=== PATIENT | male | born 1945 | race Caucasian/White ===

== ENCOUNTER 2019-04-08 13:23 | Outpatient (RCR) | payer MEDICARE, SELFPAY ==
[2019-02-13 12:30] LABS: Prothrombin Time 30.3 Seconds (11.1-14.7)
[2019-03-22 16:13] LABS: Basophils Percent Auto 0.5 % (0.2-1.2); Eosinophils Absolute Auto 0.4 K/mm3 (0-0.3); Eosinophils Percent Auto 4.7 % (0-4.4); Hematocrit 47.4 % (42.0-52.0); Hemoglobin 15.5 g/dL (14.0-18.0); Immature Granulocyte Absolute 0.05 K/mm3 (0.00-0.031); Immature Granulocyte Percent A 0.6 % (0-0.5); Lymphocytes Absolute Auto 1.34 K/mm3 (0.9-3.2); Lymphocytes Percent Auto 16.4 % (18.3-44.2); Mean Corpuscular HGB Conc 32.7 g/dl (32-36); Mean Corpuscular Hemoglobin 27.2 pg (26-34); Mean Corpuscular Volume 83.3 fl (80-100); Mean Platelet Volume 10.8 fl (7.4-10.4); Monocytes Absolute Auto 0.8 K/mm3 (0.1-0.6); Monocytes Percent Auto 10.2 % (2.6-8.5); Neutrophils Absolute Auto 5.5 K/mm3 (1.3-6.7); Neutrophils Percent Auto 67.6 % (45.5-73.1); Platelet Count Result 191 k/mm3 (150-375); Red Blood Count 5.69 M/mm3 (4.6-6.20); Red Cell Distribution Width 15.9 % (11.5-14.5); White Blood Count 8.2 K/mm3 (4.5-10.0)
[2019-03-22 16:25] LABS: Alanine Aminotransferase 54 U/L (4-50); Alkaline Phosphatase 101 U/L (38-126); Aspartate Amino Transferase 41 U/L (17-59); Bilirubin,Total 2.1 mg/dL (0.2-1.3); Blood Urea Nitrogen 22 mg/dL (9-20); Calcium 9.5 mg/dL (8.4-10.2); Carbon Dioxide 29 mmol/L (22-30); Chloride 94 mmol/L (98-107); Estimated Glomerular Filt Rate 59; Glucose 227 mg/dL (75-110); Potassium 4.6 mmol/L (3.4-5.0); Sodium 132 mmol/L (137-145)
[2019-03-22 16:33] LABS: Immunoglobulin A 174 mg/dL (70-400)
[2019-03-24 09:35] LABS: Kappa\\Lambda Light Chains 1.41 (0.26-1.65); Lambda Light Chain 15.9 mg/L (5.7-26.3)
[2019-03-24 13:46] LABS: Beta-2-Microglobulin 2.77 mg/L (<=2.51)
[2019-03-25 00:35] LABS: Albumin 3.8 g/dL (3.8-4.8); Alpha 1 Globulin 0.4 g/dL (0.2-0.3); Alpha 2 Globulin 1.1 g/dL (0.5-0.9); Beta 1 Globulin 0.5 g/dL (0.4-0.6); Gamma Globulin 0.7 g/dL (0.8-1.7); Protein, Total 6.7 g/dL (6.1-8.1)
[2019-03-25 16:43] LABS: INR 2.6; Prothrombin Time 27.4 Seconds (11.1-14.7)
[2019-04-08 14:04] LABS: INR 1.6
== END 2019-04-15 23:59 | disposition home or self-care (01) ==
LOC: ANHLAB 13:23
PROVIDERS: Family Provider Specialist; PCP Emergency Medicine
DX: C90.00 Multiple myeloma not having achieved remission (principal); I25.10 Atherosclerotic heart disease of native coronary artery without angina pectoris; Z86.718 Personal history of other venous thrombosis and embolism; Z86.711 Personal history of pulmonary embolism
CPT/HCPCS: 36415; 80053; 82232; 82784; 83883; 84155; 84165; 85025; 85610

== ENCOUNTER 2019-04-20 15:12 | Outpatient (CLI) | payer MEDICARE, SELFPAY ==
[2019-04-20 15:53] LABS: INR 3.2; Prothrombin Time 32.1 Seconds (11.1-14.7)
== END 2019-04-20 15:13 | disposition home or self-care (01) ==
PROVIDERS: PCP Emergency Medicine
DX: E10.21 Type 1 diabetes mellitus with diabetic nephropathy (principal); M47.819 Spondylosis without myelopathy or radiculopathy, site unspecified
CPT/HCPCS: 36415; 85610

== ENCOUNTER 2019-07-16 15:36 | Outpatient (RCR) | payer MEDICARE, SELFPAY ==
[2019-04-19 10:53] LABS: INR 2.9; Prothrombin Time 29.7 Seconds (11.1-14.7)
[2019-04-19 10:58] LABS: Alanine Aminotransferase 81 U/L (4-50); Albumin Level 4.1 g/dL (3.5-5.1); Alkaline Phosphatase 99 U/L (38-126); Aspartate Amino Transferase 46 U/L (17-59); Bilirubin,Total 1.5 mg/dL (0.2-1.3); Blood Urea Nitrogen 27 mg/dL (9-20); Calcium 9.5 mg/dL (8.4-10.2); Carbon Dioxide 27 mmol/L (22-30); Chloride 101 mmol/L (98-107); Cholesterol 140 mg/dL (0-200); Estimated Glomerular Filt Rate 42; Glucose 150 mg/dL (75-110); HDL Direct 37 mg/dL; Potassium 4.8 mmol/L (3.4-5.0); Sodium 137 mmol/L (137-145); Triglycerides 114 mg/dL (<150)
[2019-04-19 11:08] LABS: LDL Cholesterol Direct 76 mg/dL
[2019-04-19 11:34] LABS: Hemoglobin A1C 8.5 % (<5.7)
[2019-04-29 13:11] LABS: INR 2.8; Prothrombin Time 29.1 Seconds (11.1-14.7)
[2019-06-14 12:45] LABS: Basophils Percent Auto 0.5 % (0.2-1.2); Eosinophils Absolute Auto 0.2 K/mm3 (0-0.3); Eosinophils Percent Auto 2.1 % (0-4.4); Hematocrit 48.9 % (42.0-52.0); Hemoglobin 15.7 g/dL (14.0-18.0); Immature Granulocyte Absolute 0.04 K/mm3 (0.00-0.031); Immature Granulocyte Percent A 0.5 % (0-0.5); Lymphocytes Absolute Auto 1.47 K/mm3 (0.9-3.2); Lymphocytes Percent Auto 18.1 % (18.3-44.2); Mean Corpuscular HGB Conc 32.1 g/dl (32-36); Mean Corpuscular Volume 87.2 fl (80-100); Mean Platelet Volume 10.5 fl (7.4-10.4); Monocytes Absolute Auto 0.8 K/mm3 (0.1-0.6); Monocytes Percent Auto 9.2 % (2.6-8.5); Neutrophils Absolute Auto 5.7 K/mm3 (1.3-6.7); Neutrophils Percent Auto 69.6 % (45.5-73.1); Platelet Count Result 201 k/mm3 (150-375); Red Blood Count 5.61 M/mm3 (4.6-6.20); Red Cell Distribution Width 16.9 % (11.5-14.5); White Blood Count 8.1 K/mm3 (4.5-10.0)
[2019-06-14 13:01] LABS: INR 2.3; Prothrombin Time 24.5 Seconds (11.1-14.7)
[2019-06-14 13:07] LABS: Immunoglobulin A 191 mg/dL (70-400)
[2019-06-14 13:21] LABS: Alanine Aminotransferase 51 U/L (4-50); Albumin Level 3.9 g/dL (3.5-5.1); Alkaline Phosphatase 89 U/L (38-126); Aspartate Amino Transferase 43 U/L (17-59); Bilirubin,Total 1.6 mg/dL (0.2-1.3); Blood Urea Nitrogen 27 mg/dL (9-20); Calcium 9.1 mg/dL (8.4-10.2); Carbon Dioxide 28 mmol/L (22-30); Chloride 102 mmol/L (98-107); Estimated Glomerular Filt Rate 49; Glucose 59 mg/dL (75-110); Phosphorus 3.7 mg/dL (2.5-4.5); Potassium 4.3 mmol/L (3.4-5.0); Sodium 140 mmol/L (137-145)
[2019-06-15 19:45] LABS: Beta-2-Microglobulin 2.57 mg/L (<=2.51)
[2019-06-17 06:36] LABS: Kappa\\Lambda Light Chains 1.57 (0.26-1.65); Lambda Light Chain 13.8 mg/L (5.7-26.3)
[2019-07-16 16:10] LABS: INR 4.5; Prothrombin Time 41.8 Seconds (11.1-14.7)
== END 2019-07-18 23:59 | disposition home or self-care (01) ==
LOC: ANHLAB 15:36
PROVIDERS: PCP Emergency Medicine; Visit Provider Specialist
DX: I25.10 Atherosclerotic heart disease of native coronary artery without angina pectoris (principal); E11.40 Type 2 diabetes mellitus with diabetic neuropathy, unspecified; E78.2 Mixed hyperlipidemia; Z86.711 Personal history of pulmonary embolism; Z86.718 Personal history of other venous thrombosis and embolism
CPT/HCPCS: 36415; 80053; 80061; 80069; 82232; 82784; 83036; 83883; 85025; 85610

== ENCOUNTER 2019-09-06 12:41 | Outpatient (NON) | payer MEDICARE, SELFPAY ==
[2019-09-08 13:08] LABS: Reference Lab Test Result Not Detected
== END 2019-09-06 12:42 ==
DX: M96.1 Postlaminectomy syndrome, not elsewhere classified (principal)
CPT/HCPCS: 36415; 87081; 87641

== ENCOUNTER 2019-09-16 15:03 | Outpatient (RCR) | payer MEDICARE, SELFPAY ==
[2019-08-10 15:36] LABS: Basophils Absolute Auto 0.1 K/mm3 (0.0-0.1); Basophils Percent Auto 0.6 % (0.2-1.2); Eosinophils Absolute Auto 0.3 K/mm3 (0-0.3); Eosinophils Percent Auto 3.5 % (0-4.4); Hematocrit 44.1 % (42.0-52.0); Hemoglobin 14.4 g/dL (14.0-18.0); Immature Granulocyte Absolute 0.05 K/mm3 (0.00-0.031); Immature Granulocyte Percent A 0.6 % (0-0.5); Lymphocytes Absolute Auto 1.52 K/mm3 (0.9-3.2); Mean Corpuscular HGB Conc 32.7 g/dl (32-36); Mean Corpuscular Hemoglobin 28.8 pg (26-34); Mean Corpuscular Volume 88.2 fl (80-100); Monocytes Absolute Auto 0.8 K/mm3 (0.1-0.6); Monocytes Percent Auto 9.8 % (2.6-8.5); Neutrophils Absolute Auto 5.3 K/mm3 (1.3-6.7); Neutrophils Percent Auto 66.5 % (45.5-73.1); Platelet Count Result 173 k/mm3 (150-375); Red Cell Distribution Width 16.5 % (11.5-14.5)
[2019-08-10 15:47] LABS: INR 2.3; Prothrombin Time 24.5 Seconds (11.1-14.7)
[2019-08-10 15:54] LABS: Immunoglobulin A 179 mg/dL (70-400)
[2019-08-12 21:38] LABS: Beta-2-Microglobulin 2.94 mg/L (<=2.51)
[2019-08-16 15:59] LABS: Alanine Aminotransferase 44 U/L (4-50); Albumin Level 4.1 g/dL (3.5-5.1); Alkaline Phosphatase 95 U/L (38-126); Aspartate Amino Transferase 37 U/L (17-59); Bilirubin,Total 1.5 mg/dL (0.2-1.3); Blood Urea Nitrogen 30 mg/dL (9-20); Calcium 9.1 mg/dL (8.4-10.2); Carbon Dioxide 24 mmol/L (22-30); Chloride 107 mmol/L (98-107); Estimated Glomerular Filt Rate 54; Glucose 121 mg/dL (75-110); Potassium 4.8 mmol/L (3.4-5.0); Sodium 138 mmol/L (137-145)
[2019-08-18 22:54] LABS: Kappa\\Lambda Light Chains 1.72 (0.26-1.65); Lambda Light Chain 13.7 mg/L (5.7-26.3)
[2019-08-18 23:03] LABS: Albumin 3.3 g/dL (3.8-4.8); Alpha 1 Globulin 0.3 g/dL (0.2-0.3); Beta 1 Globulin 0.4 g/dL (0.4-0.6); Gamma Globulin 0.6 g/dL (0.8-1.7); Protein, Total 5.9 g/dL (6.1-8.1)
[2019-09-16 16:17] LABS: INR 2.2; Prothrombin Time 23.9 Seconds (11.1-14.7)
[2019-09-16 16:42] LABS: Creatinine Urine 197.9 mg/dL
[2019-09-16 16:47] LABS: MALB Creatinine Ratio 37.7 mg/g (0-30); Microalbumin Urine Random 74.6 mg/L (0-16.7)
== END 2019-11-08 23:59 | disposition home or self-care (01) ==
LOC: ANHLAB 15:03
PROVIDERS: PCP Emergency Medicine; Visit Provider Nurse Practitioner Adult Health
DX: Z51.81 Encounter for therapeutic drug level monitoring (principal); C90.00 Multiple myeloma not having achieved remission; E11.65 Type 2 diabetes mellitus with hyperglycemia; Z79.4 Long term (current) use of insulin; Z79.01 Long term (current) use of anticoagulants
CPT/HCPCS: 36415; 80053; 82043; 82232; 82784; 83883; 84155; 84165; 85025; 85610

== ENCOUNTER 2019-10-08 12:17 | Outpatient (CLI) | payer MEDICARE, SELFPAY ==
--- NOTE | 2019-10-08 | ECG_ITS ---
Measurements Intervals [place] Rate: 61 P: 3 HI: 269 QRS: 31 QRSD: 109 T: -13 QT: 446 QTc: 452 Interpretive Statements SINUS RHYTHM WITH FIRST DEGREE AV BLOCK LOW QRS VOLTAGE IN PRECORDIAL LEADS CANNOT RULE OUT SEPTAL INFARCT, AGE INDETERMINATE CONSIDER INFERIOR INFARCT, AGE INDETERMINATE ABNORMAL ECG Electronically Signed On 10-08-2019 13:05:48 CDT by Andrea Floyd D.O.
[2019-10-08 13:13] LABS: Basophils Absolute Auto 0.1 K/mm3 (0.0-0.1); Eosinophils Absolute Auto 0.3 K/mm3 (0-0.3); Hematocrit 44.6 % (42.0-52.0); Hemoglobin 14.6 g/dL (14.0-18.0); Immature Granulocyte Absolute 0.04 K/mm3 (0.00-0.031); Immature Granulocyte Percent A 0.5 % (0-0.5); Lymphocytes Absolute Auto 1.39 K/mm3 (0.9-3.2); Lymphocytes Percent Auto 16.7 % (18.3-44.2); Mean Corpuscular HGB Conc 32.7 g/dl (32-36); Mean Corpuscular Hemoglobin 29.1 pg (26-34); Mean Corpuscular Volume 88.8 fl (80-100); Mean Platelet Volume 10.4 fl (7.4-10.4); Monocytes Absolute Auto 0.7 K/mm3 (0.1-0.6); Monocytes Percent Auto 8.2 % (2.6-8.5); Neutrophils Absolute Auto 5.8 K/mm3 (1.3-6.7); Neutrophils Percent Auto 69.6 % (45.5-73.1); Platelet Count Result 191 k/mm3 (150-375); Red Blood Count 5.02 M/mm3 (4.6-6.20); Red Cell Distribution Width 14.6 % (11.5-14.5); White Blood Count 8.3 K/mm3 (4.5-10.0)
[2019-10-08 13:15] LABS: Add Urine Microscopic? NO; Appearance Urine Clear (Clear); Bilirubin Urine Negative (Negative); Blood Urine Negative (Negative); Color Urine Yellow (Yellow); Glucose Urine UA Negative (Negative); Ketones Urine Negative (Negative); Leukocyte Esterase Ur Negative LEU/UL (Negative); Nitrate Urine Negative (Negative); Protein Urine Negative (Negative); Specific Grav Ur 1.013 (1.001-1.035); Urobilinogen Urine Negative mg/dL (<2.0)
[2019-10-08 14:21] LABS: Alanine Aminotransferase 60 U/L (4-50); Albumin Level 4.4 g/dL (3.5-5.1); Alkaline Phosphatase 83 U/L (38-126); Anion Gap 8 mmol/L (8-16); Aspartate Amino Transferase 55 U/L (17-59); Bilirubin,Total 1.6 mg/dL (0.2-1.3); Blood Urea Nitrogen 35 mg/dL (9-20); Calcium 9.2 mg/dL (8.4-10.2); Carbon Dioxide 25 mmol/L (22-30); Chloride 103 mmol/L (98-107); Estimated Glomerular Filt Rate 39; Glucose 45 mg/dL (75-110); Potassium 5.3 mmol/L (3.4-5.0); Sodium 136 mmol/L (137-145)
== END 2019-10-08 12:18 | disposition home or self-care (01) ==
LOC: ANHLAB 12:20
PROVIDERS: PCP Family Medicine; Visit Provider Anesthesiology
DX: M96.1 Postlaminectomy syndrome, not elsewhere classified (principal); R94.31 Abnormal electrocardiogram [ECG] [EKG]
CPT/HCPCS: 36415; 80053; 81003; 85025; 93005

== ENCOUNTER 2019-10-12 12:09 | Outpatient (CLI) | payer MEDICARE, SELFPAY ==
[2019-10-12 13:33] LABS: INR 1.3; Prothrombin Time 16.1 Seconds (11.1-14.7)
== END 2019-10-12 12:10 | disposition home or self-care (01) ==
PROVIDERS: PCP Family Medicine; Visit Provider Anesthesiology
DX: M96.1 Postlaminectomy syndrome, not elsewhere classified (principal); Z79.01 Long term (current) use of anticoagulants
CPT/HCPCS: 36415; 85610; 85730

== ENCOUNTER 2019-10-20 12:08 | Outpatient (CLI) | payer MEDICARE, SELFPAY ==
--- NOTE | ~2019-10-20 | US_ITS ---
EXAMINATION: US venous doppler [facility] DATE: 10/20/2019 12:59 INDICATION: Bilateral lower limb pain, swelling and erythema. TECHNIQUE: Grayscale ultrasound images without and with compression and Doppler ultrasound images of the bilateral lower extremity veins were obtained. COMPARISON: 09/26/2016 FINDINGS: Noncompressible deep venous thrombosis in the right popliteal vein, peroneal veins and posterior tibi al veins. The visualized portions of right common femoral vein, profunda (deep) femoral vein, femoral vein, gastrocnemius vein and greater saphenous vein outflow are patent. Noncompressible occlusive deep venous anastomosis in the left posterior tibial veins and peroneal vei ns. The visualized portions of left common femoral vein, profunda femoral vein, femoral vein, poplite al vein, gastrocnemius vein and greater saphenous vein outflow are patent. IMPRESSION: 1. Bilateral [id number] deep venous thrombosis in the right popliteal and bilateral posterior ti bial and peroneal veins. Reviewed, dictated and finalized at location A. IMPRESSION: 1. Bilateral [id number] deep venous thrombosis in the right popliteal and bilateral posterior tibial and peroneal veins.
[2019-10-20 14:41] LABS: INR 1.1; Prothrombin Time 13.7 Seconds (11.1-14.7)
== END 2019-10-20 12:09 | disposition home or self-care (01) ==
PROVIDERS: PCP Family Medicine; Visit Provider Family Medicine
DX: I82.453 Acute embolism and thrombosis of peroneal vein, bilateral (principal); I82.443 Acute embolism and thrombosis of tibial vein, bilateral; I82.431 Acute embolism and thrombosis of right popliteal vein
CPT/HCPCS: 36415; 85610; 93970

== ENCOUNTER 2019-10-25 16:11 | Outpatient (CLI) | payer MEDICARE, SELFPAY ==
[2019-10-25 16:56] LABS: Basophils Absolute Auto 0.1 K/mm3 (0.0-0.1); Basophils Percent Auto 0.7 % (0.2-1.2); Eosinophils Absolute Auto 0.5 K/mm3 (0-0.3); Eosinophils Percent Auto 5.5 % (0-4.4); Hemoglobin 14.5 g/dL (14.0-18.0); Immature Granulocyte Absolute 0.07 K/mm3 (0.00-0.031); Immature Granulocyte Percent A 0.8 % (0-0.5); Lymphocytes Absolute Auto 1.42 K/mm3 (0.9-3.2); Lymphocytes Percent Auto 16.9 % (18.3-44.2); Mean Corpuscular HGB Conc 33.7 g/dl (32-36); Mean Corpuscular Hemoglobin 29.1 pg (26-34); Mean Corpuscular Volume 86.3 fl (80-100); Mean Platelet Volume 10.3 fl (7.4-10.4); Monocytes Absolute Auto 0.9 K/mm3 (0.1-0.6); Monocytes Percent Auto 10.2 % (2.6-8.5); Neutrophils Absolute Auto 5.5 K/mm3 (1.3-6.7); Neutrophils Percent Auto 65.9 % (45.5-73.1); Platelet Count Result 144 k/mm3 (150-375); Red Blood Count 4.98 M/mm3 (4.6-6.20); Red Cell Distribution Width 14.2 % (11.5-14.5); White Blood Count 8.4 K/mm3 (4.5-10.0)
[2019-10-25 17:11] LABS: Alanine Aminotransferase 32 U/L (4-50); Albumin Level 3.7 g/dL (3.5-5.1); Alkaline Phosphatase 84 U/L (38-126); Anion Gap 8 mmol/L (8-16); Aspartate Amino Transferase 29 U/L (17-59); Bilirubin,Total 0.9 mg/dL (0.2-1.3); Blood Urea Nitrogen 30 mg/dL (9-20); Calcium 8.9 mg/dL (8.4-10.2); Carbon Dioxide 26 mmol/L (22-30); Chloride 102 mmol/L (98-107); Estimated Glomerular Filt Rate 42; Glucose 196 mg/dL (75-110); Sodium 136 mmol/L (137-145)
[2019-10-25 17:26] LABS: Immunoglobulin A 202 mg/dL (70-400)
[2019-10-25 17:59] LABS: Potassium 4.7 mmol/L (3.4-5.0)
[2019-10-29 10:46] LABS: Kappa\\Lambda Light Chains 2.01 (0.26-1.65); Lambda Light Chain 16.1 mg/L (5.7-26.3)
[2019-10-31 00:59] LABS: Beta-2-Microglobulin 3.38 mg/L (<=2.51)
== END 2019-10-25 16:12 | disposition home or self-care (01) ==
PROVIDERS: PCP Family Medicine; Visit Provider Internal Medicine Medical Oncology
DX: C90.00 Multiple myeloma not having achieved remission (principal)
CPT/HCPCS: 36415; 80053; 82232; 82784; 83883; 85025; 85610

== ENCOUNTER 2019-10-25 16:23 | Outpatient (CLI) | payer MEDICARE, SELFPAY ==
[2019-10-25 17:07] LABS: INR 2.9; Prothrombin Time 29.6 Seconds (11.1-14.7)
== END 2019-10-25 16:24 | disposition home or self-care (01) ==
PROVIDERS: PCP Family Medicine; Visit Provider Family Medicine
DX: I82.409 Acute embolism and thrombosis of unspecified deep veins of unspecified lower extremity (principal)
CPT/HCPCS: 36415; 85610

== ENCOUNTER 2019-11-19 11:46 | Outpatient (CLI) | payer MEDICARE, SELFPAY ==
[2019-11-19 12:48] LABS: Albumin Level 3.6 g/dL (3.5-5.1); Anion Gap 3 mmol/L (8-16); Blood Urea Nitrogen 25 mg/dL (9-20); Carbon Dioxide 25 mmol/L (22-30); Chloride 105 mmol/L (98-107); Estimated Glomerular Filt Rate 49; Glucose 184 mg/dL (75-110); Potassium 4.8 mmol/L (3.4-5.0); Sodium 133 mmol/L (137-145)
[2019-11-19 13:17] LABS: Creatinine Urine 141.6 mg/dL; Total Protein Urine Random 16 mg/dL
== END 2019-11-19 11:47 | disposition home or self-care (01) ==
LOC: ANHLAB 11:50
PROVIDERS: PCP Family Medicine; Visit Provider Internal Medicine Nephrology
DX: N18.3 Chronic kidney disease, stage 3 (moderate) (principal)
CPT/HCPCS: 36415; 80069; 82570; 84156

== ENCOUNTER 2019-12-03 10:46 | Outpatient (CLI) | payer MEDICARE, SELFPAY ==
--- NOTE | ~2019-12-03 | US_ITS ---
EXAMINATION: US venous doppler [facility] DATE: 12/03/2019 12:05 INDICATION: Left lower limb pain. TECHNIQUE: Grayscale ultrasound images without and with compression and Doppler ultrasound images of the bilateral lower extremity veins were obtained. COMPARISON: Ultrasound 10/20/2019 FINDINGS: The visualized portions of right common femoral vein, profunda (deep) femoral vein, femoral vein, and greater saphenous vein outflow are patent. There is thrombus in right popliteal and gastrocnemius ve ins. The calf veins are not well evaluated. The visualized portions of left common femoral vein, profunda femoral vein, femoral vein, popliteal v ein, and greater saphenous vein outflow are patent. The calf veins are not well evaluated. IMPRESSION: 1. Deep vein thrombosis involving right popliteal and gastrocnemius veins. Reviewed, dictated and finalized at location B.
[2019-12-03 11:54] LABS: INR 1.4; Prothrombin Time 16.5 Seconds (11.1-14.7)
== END 2019-12-03 10:47 | disposition home or self-care (01) ==
PROVIDERS: PCP Family Medicine; Visit Provider Internal Medicine Medical Oncology
DX: I82.4Z2 Acute embolism and thrombosis of unspecified deep veins of left distal lower extremity (principal); Z86.718 Personal history of other venous thrombosis and embolism
CPT/HCPCS: 36415; 85610; 93970

== ENCOUNTER 2019-12-06 14:37 | Outpatient (RCR) | payer MEDICARE, SELFPAY ==
[2019-11-29 16:06] LABS: INR 1.1; Prothrombin Time 13.5 Seconds (11.1-14.7)
[2019-12-06 15:06] LABS: INR 1.5
== END 2020-02-27 23:59 | disposition home or self-care (01) ==
LOC: ANHLAB 14:37
PROVIDERS: PCP Family Medicine; Visit Provider Internal Medicine Medical Oncology
DX: Z51.81 Encounter for therapeutic drug level monitoring (principal); Z79.01 Long term (current) use of anticoagulants
CPT/HCPCS: 36415; 85610

== ENCOUNTER 2019-12-27 16:55 | Outpatient (CLI) | payer MEDICARE, SELFPAY ==
[2019-12-27 17:35] LABS: Basophils Absolute Auto 0.1 K/mm3 (0.0-0.1); Basophils Percent Auto 0.6 % (0.2-1.2); Eosinophils Absolute Auto 0.3 K/mm3 (0-0.3); Eosinophils Percent Auto 3.5 % (0-4.4); Hematocrit 46.7 % (42.0-52.0); Hemoglobin 15.4 g/dL (14.0-18.0); Immature Granulocyte Absolute 0.04 K/mm3 (0.00-0.031); Immature Granulocyte Percent A 0.5 % (0-0.5); Lymphocytes Absolute Auto 1.64 K/mm3 (0.9-3.2); Lymphocytes Percent Auto 20.6 % (18.3-44.2); Mean Corpuscular Hemoglobin 29.2 pg (26-34); Mean Corpuscular Volume 88.6 fl (80-100); Mean Platelet Volume 10.1 fl (7.4-10.4); Monocytes Absolute Auto 0.7 K/mm3 (0.1-0.6); Monocytes Percent Auto 8.8 % (2.6-8.5); Neutrophils Absolute Auto 5.3 K/mm3 (1.3-6.7); Platelet Count Result 190 k/mm3 (150-375); Red Blood Count 5.27 M/mm3 (4.6-6.20); Red Cell Distribution Width 14.5 % (11.5-14.5)
[2019-12-27 18:05] LABS: Alanine Aminotransferase 41 U/L (4-50); Albumin Level 4.3 g/dL (3.5-5.1); Alkaline Phosphatase 76 U/L (38-126); Anion Gap 9 mmol/L (8-16); Aspartate Amino Transferase 37 U/L (17-59); Blood Urea Nitrogen 30 mg/dL (9-20); Calcium 9.6 mg/dL (8.4-10.2); Carbon Dioxide 27 mmol/L (22-30); Chloride 104 mmol/L (98-107); Estimated Glomerular Filt Rate 29; Glucose 62 mg/dL (75-110); Potassium 4.7 mmol/L (3.4-5.0); Sodium 140 mmol/L (137-145)
[2019-12-27 18:13] LABS: Immunoglobulin A 215 mg/dL (70-400)
[2019-12-29 21:43] LABS: Kappa\\Lambda Light Chains 1.53 (0.26-1.65); Lambda Light Chain 18.1 mg/L (5.7-26.3)
[2019-12-30 21:41] LABS: Albumin 3.8 g/dL (3.8-4.8); Alpha 1 Globulin 0.4 g/dL (0.2-0.3); Alpha 2 Globulin 1.1 g/dL (0.5-0.9); Beta 1 Globulin 0.5 g/dL (0.4-0.6); Gamma Globulin 0.7 g/dL (0.8-1.7); Protein, Total 6.8 g/dL (6.1-8.1)
[2019-12-31 12:53] LABS: Beta-2-Microglobulin 3.17 mg/L (<=2.51)
== END 2019-12-27 16:56 | disposition home or self-care (01) ==
LOC: ANHLAB 17:00
PROVIDERS: PCP Family Medicine; Visit Provider Internal Medicine Medical Oncology
DX: C90.00 Multiple myeloma not having achieved remission (principal)
CPT/HCPCS: 36415; 80053; 82232; 82784; 83883; 84155; 84165; 85025

== ENCOUNTER → 2020-01-18 13:13 | Outpatient (CLI) | payer MEDICARE, SELFPAY ==
--- NOTE | ~2020-01-18 | US_ITS ---
EXAMINATION: US renal BI EXAM DATE: 01/18/2020 13:44 INDICATION: Acute renal failure TECHNIQUE: Multiple grayscale and Doppler images of the kidneys were obtained (by a technologist who performed the scan) and subsequently reviewed. Comparison is made to prior examination from 09/23/1969 . FINDINGS: There is mild bilateral renal cortical thinning. Right kidney: There is normal contour and echogenicity. It measures 9.8 x 5.4 x 5.1 centimeters. The re is a 1.2 cm cyst. There is no hydronephrosis. Left kidney: There is normal contour and echogenicity. It measures 11.4 x 5.3 x 5.3 centimeters. Th ere are no focal renal lesions identified. There is no hydronephrosis. Bladder unremarkable. IMPRESSION: 1. Renal cortical thinning, mild atrophy bilaterally. 2. No hydronephrosis. Reviewed, dictated and finalized at location B. PUMPER
== END ==
PROVIDERS: PCP Family Medicine; Visit Provider Internal Medicine Medical Oncology
DX: N17.9 Acute kidney failure, unspecified (principal)
CPT/HCPCS: 76775

== ENCOUNTER 2020-02-23 16:59 | Outpatient (CLI) | payer MEDICARE, SELFPAY ==
[2020-02-23 17:39] LABS: Basophils Absolute Auto 0.1 K/mm3 (0.0-0.1); Basophils Percent Auto 0.7 % (0.2-1.2); Eosinophils Absolute Auto 0.3 K/mm3 (0-0.3); Eosinophils Percent Auto 3.7 % (0-4.4); Hematocrit 49.1 % (42.0-52.0); Immature Granulocyte Absolute 0.03 K/mm3 (0.00-0.031); Immature Granulocyte Percent A 0.4 % (0-0.5); Lymphocytes Absolute Auto 1.86 K/mm3 (0.9-3.2); Lymphocytes Percent Auto 22.4 % (18.3-44.2); Mean Corpuscular HGB Conc 32.6 g/dl (32-36); Mean Corpuscular Hemoglobin 28.8 pg (26-34); Mean Corpuscular Volume 88.5 fl (80-100); Monocytes Absolute Auto 0.8 K/mm3 (0.1-0.6); Monocytes Percent Auto 9.9 % (2.6-8.5); Neutrophils Absolute Auto 5.2 K/mm3 (1.3-6.7); Neutrophils Percent Auto 62.9 % (45.5-73.1); Platelet Count Result 191 k/mm3 (150-375); Red Blood Count 5.55 M/mm3 (4.6-6.20); Red Cell Distribution Width 14.6 % (11.5-14.5); White Blood Count 8.3 K/mm3 (4.5-10.0)
[2020-02-23 17:51] LABS: Alanine Aminotransferase 41 U/L (4-50); Alkaline Phosphatase 87 U/L (38-126); Anion Gap 7 mmol/L (8-16); Aspartate Amino Transferase 34 U/L (17-59); Bilirubin,Total 1.5 mg/dL (0.2-1.3); Blood Urea Nitrogen 29 mg/dL (9-20); Calcium 9.4 mg/dL (8.4-10.2); Carbon Dioxide 28 mmol/L (22-30); Chloride 102 mmol/L (98-107); Estimated Glomerular Filt Rate 33; Glucose 98 mg/dL (75-110); Sodium 137 mmol/L (137-145)
[2020-02-23 17:58] LABS: Immunoglobulin A 222 mg/dL (70-400)
[2020-02-28 14:28] LABS: Kappa\\Lambda Light Chains 1.96 (0.26-1.65); Lambda Light Chain 16.4 mg/L (5.7-26.3)
[2020-02-29 11:33] LABS: Beta-2-Microglobulin 3.98 mg/L (<=2.51)
== END 2020-02-23 17:00 | disposition home or self-care (01) ==
LOC: ANHLAB 17:04
PROVIDERS: PCP Family Medicine; Visit Provider Internal Medicine Medical Oncology
DX: C90.00 Multiple myeloma not having achieved remission (principal)
CPT/HCPCS: 36415; 80053; 82232; 82784; 83883; 85025

== ENCOUNTER → 2020-03-30 15:34 | Outpatient (CLI) | payer MEDICARE, SELFPAY ==
--- NOTE | ~2020-03-30 | CT_ITS ---
EXAMINATION: CT pelvis wo con DATE: 03/30/2020 15:53 INDICATION: Spondylolisthesis, sacral and sacrococcygeal region. TECHNIQUE: Computed tomography (CT) of the pelvis was performed without intravenous contrast. Automat ed exposure control and iterative reconstruction technique were employed. The dose-length product was 627.80 mGy-cm. COMPARISON: CT abdomen 02/06/2019 FINDINGS: There is diffuse bladder wall thickening, likely secondary to chronic outlet obstruction fr om the mildly enlarged prostate. There are no dilated loops of bowel. There is an anastomosis in the sigmoid colon. The appendix is normal. There are no pathologically enlarged lymph nodes. There is no free intraperitoneal fluid. There is prominent fat in the inguinal canals that may be hernias. There are changes of posterior fusion procedure from L4 to S1 with pedicle screws. There is interbody fusio n at L5-S1. There is severe lower lumbar spondylosis. There is mild osteoarthritis of the hips. There is moderate osteoarthritis of the sacroiliac joints. IMPRESSION: 1. Severe lower lumbar spondylosis. 2. Posterior fusion procedure from L4 to S1. Reviewed, dictated and finalized at location A. ET REPORT CLERK
== END ==
PROVIDERS: PCP Family Medicine; Visit Provider Anesthesiology
DX: M43.18 Spondylolisthesis, sacral and sacrococcygeal region (principal); M47.816 Spondylosis without myelopathy or radiculopathy, lumbar region; Z98.1 Arthrodesis status
CPT/HCPCS: 72192

== ENCOUNTER 2020-04-26 13:13 | Outpatient (CLI) | payer MEDICARE, SELFPAY ==
[2020-04-26 13:41] LABS: Basophils Percent Auto 0.5 % (0.2-1.2); Eosinophils Absolute Auto 0.3 K/mm3 (0-0.3); Hematocrit 47.7 % (42.0-52.0); Hemoglobin 15.4 g/dL (14.0-18.0); Immature Granulocyte Absolute 0.04 K/mm3 (0.00-0.031); Immature Granulocyte Percent A 0.5 % (0-0.5); Lymphocytes Absolute Auto 1.68 K/mm3 (0.9-3.2); Lymphocytes Percent Auto 19.7 % (18.3-44.2); Mean Corpuscular HGB Conc 32.3 g/dl (32-36); Mean Corpuscular Hemoglobin 27.4 pg (26-34); Mean Corpuscular Volume 84.9 fl (80-100); Mean Platelet Volume 10.2 fl (7.4-10.4); Monocytes Absolute Auto 0.9 K/mm3 (0.1-0.6); Neutrophils Absolute Auto 5.6 K/mm3 (1.3-6.7); Neutrophils Percent Auto 65.3 % (45.5-73.1); Platelet Count Result 186 k/mm3 (150-375); Red Blood Count 5.62 M/mm3 (4.6-6.20); Red Cell Distribution Width 15.6 % (11.5-14.5); White Blood Count 8.5 K/mm3 (4.5-10.0)
[2020-04-26 13:54] LABS: Alanine Aminotransferase 33 U/L (4-50); Albumin Level 3.9 g/dL (3.5-5.1); Alkaline Phosphatase 92 U/L (38-126); Anion Gap 5 mmol/L (8-16); Aspartate Amino Transferase 32 U/L (17-59); Bilirubin,Total 1.7 mg/dL (0.2-1.3); Blood Urea Nitrogen 24 mg/dL (9-20); Calcium 9.4 mg/dL (8.4-10.2); Carbon Dioxide 28 mmol/L (22-30); Chloride 105 mmol/L (98-107); Estimated Glomerular Filt Rate 39; Glucose 125 mg/dL (75-110); Potassium 4.6 mmol/L (3.4-5.0); Sodium 138 mmol/L (137-145)
[2020-04-26 14:01] LABS: Immunoglobulin A 216 mg/dL (70-400)
[2020-04-28 01:09] LABS: Kappa\\Lambda Light Chains 1.67 (0.26-1.65); Lambda Light Chain 17.9 mg/L (5.7-26.3)
[2020-04-30 22:02] LABS: Albumin 3.4 g/dL (3.8-4.8); Alpha 1 Globulin 0.4 g/dL (0.2-0.3); Alpha 2 Globulin 1.1 g/dL (0.5-0.9); Beta 1 Globulin 0.5 g/dL (0.4-0.6); Gamma Globulin 0.7 g/dL (0.8-1.7); Protein, Total 6.4 g/dL (6.1-8.1)
== END 2020-04-26 13:14 | disposition home or self-care (01) ==
PROVIDERS: PCP Family Medicine; Visit Provider Internal Medicine Medical Oncology
DX: C90.00 Multiple myeloma not having achieved remission (principal)
CPT/HCPCS: 36415; 80053; 82232; 82784; 83883; 84155; 84165; 85025

== ENCOUNTER 2020-05-05 13:37 | Outpatient (CLI) | payer MEDICARE, SELFPAY ==
[2020-05-05 15:15] LABS: Creatinine Urine 171.8 mg/dL
[2020-05-05 15:22] LABS: Microalbumin Urine Random 15.5 mg/L (0-16.7)
== END 2020-05-05 13:38 | disposition home or self-care (01) ==
PROVIDERS: PCP Family Medicine; Visit Provider Internal Medicine Endocrinology, Diabetes & Metabolism
DX: E11.65 Type 2 diabetes mellitus with hyperglycemia (principal); Z79.4 Long term (current) use of insulin
CPT/HCPCS: 82043

== ENCOUNTER 2020-05-12 13:38 | Outpatient (CLI) | payer MEDICARE, SELFPAY ==
--- NOTE | ~2020-05-12 | US_ITS ---
EXAMINATION: US venous doppler [facility] DATE: 05/12/2020 14:15 INDICATION: Left lower limb deep vein thrombosis. TECHNIQUE: Grayscale ultrasound images without and with compression and Doppler ultrasound images of the left lower extremity veins were obtained. COMPARISON: Ultrasound 12/03/2019 FINDINGS: The visualized portions of left common femoral vein, profunda (deep) femoral vein, femoral vein, popl iteal vein, posterior tibial veins, and greater saphenous vein outflow are patent. The peroneal veins are not well visualized. IMPRESSION: 1. No deep venous thrombosis. Reviewed, dictated and finalized at location A.
== END 2020-05-12 13:39 | disposition home or self-care (01) ==
PROVIDERS: PCP Family Medicine; Visit Provider Internal Medicine Medical Oncology
DX: I82.5Z2 Chronic embolism and thrombosis of unspecified deep veins of left distal lower extremity (principal)
CPT/HCPCS: 93971

== ENCOUNTER 2020-05-24 16:55 | Outpatient (CLI) | payer MEDICARE, SELFPAY ==
[2020-05-24 17:52] LABS: Add Urine Microscopic? YES; Appearance Urine Clear (Clear); Bilirubin Urine Negative (Negative); Blood Urine Negative (Negative); Color Urine Yellow (Yellow); Glucose Urine UA 3+ mg/dL (Negative); Ketones Urine Negative (Negative); Leukocyte Esterase Ur Negative LEU/UL (NEGATIVE); Mucus Urine Rare /lpf; Nitrate Urine Negative (Negative); Protein Urine Negative (Negative); RBC Urine 0-2 /hpf (0-2); Specific Grav Ur 1.022 (1.001-1.035); Squamous Epithelial Cell Urine Rare /hpf (Few); Urobilinogen Urine Negative mg/dL (<2.0); WBC Urine 0-3 /hpf (0-3)
[2020-05-24 17:58] LABS: Albumin Level 4.3 g/dL (3.5-5.1); Anion Gap 10 mmol/L (8-16); Blood Urea Nitrogen 44 mg/dL (9-20); Calcium 9.7 mg/dL (8.4-10.2); Carbon Dioxide 24 mmol/L (22-30); Chloride 106 mmol/L (98-107); Estimated Glomerular Filt Rate 31; Glucose 98 mg/dL (75-110); Phosphorus 4.8 mg/dL (2.5-4.5); Sodium 140 mmol/L (137-145)
[2020-05-24 18:01] LABS: Alanine Aminotransferase 32 U/L (4-50); Albumin Level 4.2 g/dL (3.5-5.1); Alkaline Phosphatase 96 U/L (38-126); Anion Gap 8 mmol/L (8-16); Aspartate Amino Transferase 34 U/L (17-59); Bilirubin,Total 1.4 mg/dL (0.2-1.3); Blood Urea Nitrogen 43 mg/dL (9-20); Calcium 9.4 mg/dL (8.4-10.2); Carbon Dioxide 24 mmol/L (22-30); Chloride 106 mmol/L (98-107); Estimated Glomerular Filt Rate 33; Glucose 95 mg/dL (75-110); Sodium 138 mmol/L (137-145)
[2020-05-24 18:09] LABS: Basophils Percent Auto 0.3 % (0.2-1.2); Eosinophils Absolute Auto 0.5 K/mm3 (0-0.3); Eosinophils Percent Auto 5.5 % (0-4.4); Hematocrit 49.7 % (42.0-52.0); Hemoglobin 16.1 g/dL (14.0-18.0); Immature Granulocyte Absolute 0.07 K/mm3 (0.00-0.031); Immature Granulocyte Percent A 0.7 % (0-0.5); Lymphocytes Absolute Auto 1.87 K/mm3 (0.9-3.2); Lymphocytes Percent Auto 19.6 % (18.3-44.2); Mean Corpuscular HGB Conc 32.4 g/dl (32-36); Mean Corpuscular Hemoglobin 27.4 pg (26-34); Mean Corpuscular Volume 84.7 fl (80-100); Mean Platelet Volume 10.7 fl (7.4-10.4); Monocytes Absolute Auto 0.9 K/mm3 (0.1-0.6); Monocytes Percent Auto 9.3 % (2.6-8.5); Neutrophils Absolute Auto 6.2 K/mm3 (1.3-6.7); Neutrophils Percent Auto 64.6 % (45.5-73.1); Platelet Count Result 217 k/mm3 (150-375); Red Blood Count 5.87 M/mm3 (4.6-6.20); Red Cell Distribution Width 17.2 % (11.5-14.5); White Blood Count 9.5 K/mm3 (4.5-10.0)
[2020-05-24 18:10] LABS: Hematocrit 50.8 % (42.0-52.0); Hemoglobin 16.5 g/dL (14.0-18.0); Mean Corpuscular HGB Conc 32.5 g/dl (32-36); Mean Corpuscular Hemoglobin 27.9 pg (26-34); Mean Corpuscular Volume 85.8 fl (80-100); Mean Platelet Volume 10.6 fl (7.4-10.4); Platelet Count Result 207 k/mm3 (150-375); Red Blood Count 5.92 M/mm3 (4.6-6.20); Red Cell Distribution Width 17.8 % (11.5-14.5); White Blood Count 9.3 K/mm3 (4.5-10.0)
[2020-05-24 18:39] LABS: Parathyroid Intact 63.9 pg/mL (7.5-53.5)
[2020-05-24 18:45] LABS: Vitamin D 25 Hydroxy 72.5 ng/mL
[2020-05-24 20:09] LABS: Creatinine Urine 145.7 mg/dL; Total Protein Urine Random 9 mg/dL; Ur Ttl Prot Creatinine Ratio 0.06 mg/mg (0-0.20)
== END 2020-05-24 16:56 | disposition home or self-care (01) ==
LOC: ANHLAB 16:57
PROVIDERS: Internal Medicine Nephrology; PCP Family Medicine; Visit Provider Anesthesiology
DX: M43.18 Spondylolisthesis, sacral and sacrococcygeal region (principal)
CPT/HCPCS: 36415; 80053; 80069; 81001; 82306; 82570; 83970; 84156; 85025; 85027

== ENCOUNTER 2020-06-22 10:39 | Outpatient (CLI) | payer MEDICARE, SELFPAY ==
[2020-06-22 11:46] LABS: Basophils Percent Auto 0.5 % (0.2-1.2); Eosinophils Absolute Auto 0.3 K/mm3 (0-0.3); Eosinophils Percent Auto 3.3 % (0-4.4); Hematocrit 45.1 % (42.0-52.0); Hemoglobin 14.4 g/dL (14.0-18.0); Immature Granulocyte Absolute 0.03 K/mm3 (0.00-0.031); Immature Granulocyte Percent A 0.4 % (0-0.5); Lymphocytes Absolute Auto 1.46 K/mm3 (0.9-3.2); Lymphocytes Percent Auto 18.3 % (18.3-44.2); Mean Corpuscular HGB Conc 31.9 g/dl (32-36); Mean Corpuscular Hemoglobin 27.9 pg (26-34); Mean Corpuscular Volume 87.2 fl (80-100); Mean Platelet Volume 10.5 fl (7.4-10.4); Monocytes Absolute Auto 0.8 K/mm3 (0.1-0.6); Monocytes Percent Auto 10.1 % (2.6-8.5); Neutrophils Absolute Auto 5.4 K/mm3 (1.3-6.7); Neutrophils Percent Auto 67.4 % (45.5-73.1); Platelet Count Result 186 k/mm3 (150-375); Red Blood Count 5.17 M/mm3 (4.6-6.20)
[2020-06-22 11:59] LABS: Potassium 4.9 mmol/L (3.4-5.0)
[2020-06-22 12:02] LABS: Alanine Aminotransferase 18 U/L (4-50); Albumin Level 4.1 g/dL (3.5-5.1); Alkaline Phosphatase 84 U/L (38-126); Anion Gap 7 mmol/L (8-16); Aspartate Amino Transferase 24 U/L (17-59); Bilirubin,Total 1.8 mg/dL (0.2-1.3); Blood Urea Nitrogen 31 mg/dL (9-20); Calcium 9.2 mg/dL (8.4-10.2); Carbon Dioxide 27 mmol/L (22-30); Chloride 105 mmol/L (98-107); Estimated Glomerular Filt Rate 35; Glucose 68 mg/dL (75-110); Phosphorus 3.9 mg/dL (2.5-4.5); Sodium 139 mmol/L (137-145)
[2020-06-22 12:11] LABS: Immunoglobulin A 244 mg/dL (70-400)
[2020-06-25 21:54] LABS: Albumin 3.6 g/dL (3.8-4.8); Alpha 1 Globulin 0.4 g/dL (0.2-0.3); Beta 1 Globulin 0.5 g/dL (0.4-0.6); Gamma Globulin 0.6 g/dL (0.8-1.7); Protein, Total 6.4 g/dL (6.1-8.1)
[2020-06-25 22:41] LABS: Kappa\\Lambda Light Chains 1.79 (0.26-1.65); Lambda Light Chain 18.3 mg/L (5.7-26.3)
[2020-06-26 14:38] LABS: Beta-2-Microglobulin 3.52 mg/L (<=2.51)
== END 2020-06-22 10:40 | disposition home or self-care (01) ==
LOC: ANHLAB 10:45
PROVIDERS: PCP Family Medicine; Visit Provider Internal Medicine Nephrology
DX: N18.32 Chronic kidney disease, stage 3b (principal); C90.00 Multiple myeloma not having achieved remission
CPT/HCPCS: 36415; 80053; 80069; 82232; 82784; 83883; 84155; 84165; 85025

== ENCOUNTER 2020-09-08 13:28 | Outpatient (CLI) | payer MEDICARE, SELFPAY ==
--- NOTE | ~2020-09-08 | XR_ITS ---
CORRECTED REPORT Ordering provider changed to Gisell Samuels MD [id number] XR thoracic spine 2V DATE: 09/08/2020 14:19 INDICATION: Back pain. Postlaminectomy syndrome. TECHNIQUE: AP and lateral views COMPARISON: None FINDINGS: There is mild dextro scoliosis of the thoracic spine. There is diffuse osteopenia. There is mild to moderate degenerative spurring of the thoracic spine. No fracture or dislocation or bone destruction. The thoracic pedicles are intact. Thoracic spinal leads overlie the mid to lower thoracic spinal canal. The generator device overlies the lower back. IMPRESSION: Mild dextroscoliosis Osteopenia Mild to moderate degenerative spurring Reviewed, dictated and finalized at location B. MTDD
--- NOTE | ~2020-09-08 | XR_ITS ---
CORRECTED REPORT Ordering provider changed to Gisell Samuels MD [id number] XR lumbar spine min 4V DATE: 09/08/2020 14:19 INDICATION: Back pain. Post laminectomy syndrome. TECHNIQUE: Flexion and extension and neutral lateral views. Coned lateral lumbosacral and AP views. COMPARISON: 10/28/2018 lumbar spine FINDINGS: Interval placement of a generator device at the left back with leads extending into the region of the lumbar spinal canal at the L2 level and extending into the thoracic spinal canal. Levoscoliosis. Diffuse osteopenia. Bilateral pedicle screws and connecting rods are again noted at L3, L4 and L5, without interval displacement or fracture since 10/28/2018. Since 10/2018 there is severe progression of degenerative disc disease at L3-4, with very prominent eburnation and degenerative spurring. Severe degenerative disc disease is again noted at L2-3, moderately severe degenerative disc disease at L4-5 and L5-S1. No interval fracture or bone destruction of the lumbar spine. No spondylolisthesis. No instability on flexion or extension is evident. The sacroiliac joints are intact. IVC filter overlies the inferior vena cava at the L3 level. Extensive calcification of the abdominal aorta and iliac arteries. Status post cholecystectomy. IMPRESSION: Interval placement of left-sided generator and thoracic spinal leads since 10/28/2018 Pedicle screws are again noted bilaterally at L4, L5 and S1 Multilevel degenerative disc disease including prominent progression of severe degenerative disc disease at L3-4 Reviewed, dictated and finalized at location B. MTDD IMPRESSION: Interval placement of left-sided generator and thoracic spinal lead s since 10/28/2018 Pedicle screws are again noted bilaterally at L4, L5 and S1 Multilevel degenerative disc disease including prominent progression of severe degenerative disc disease at L3-4
[2020-09-08 14:06] LABS: Basophils Percent Auto 0.5 % (0.2-1.2); Eosinophils Absolute Auto 0.3 K/mm3 (0-0.3); Eosinophils Percent Auto 4.2 % (0-4.4); Hematocrit 47.8 % (42.0-52.0); Hemoglobin 15.4 g/dL (14.0-18.0); Immature Granulocyte Absolute 0.04 K/mm3 (0.00-0.031); Immature Granulocyte Percent A 0.5 % (0-0.5); Lymphocytes Absolute Auto 1.48 K/mm3 (0.9-3.2); Lymphocytes Percent Auto 19.8 % (18.3-44.2); Mean Corpuscular HGB Conc 32.2 g/dl (32-36); Mean Corpuscular Volume 86.9 fl (80-100); Mean Platelet Volume 10.1 fl (7.4-10.4); Monocytes Absolute Auto 0.9 K/mm3 (0.1-0.6); Monocytes Percent Auto 11.4 % (2.6-8.5); Neutrophils Absolute Auto 4.7 K/mm3 (1.3-6.7); Neutrophils Percent Auto 63.6 % (45.5-73.1); Platelet Count Result 176 k/mm3 (150-375); Red Cell Distribution Width 15.7 % (11.5-14.5); White Blood Count 7.5 K/mm3 (4.5-10.0)
[2020-09-08 14:14] LABS: Hemoglobin A1C 7.1 % (<5.7)
[2020-09-08 14:16] LABS: Alanine Aminotransferase 34 U/L (4-50); Albumin Level 4.2 g/dL (3.5-5.1); Alkaline Phosphatase 103 U/L (38-126); Anion Gap 11 mmol/L (8-16); Aspartate Amino Transferase 31 U/L (17-59); Bilirubin,Total 1.5 mg/dL (0.2-1.3); Blood Urea Nitrogen 42 mg/dL (9-20); Calcium 9.6 mg/dL (8.4-10.2); Carbon Dioxide 23 mmol/L (22-30); Chloride 102 mmol/L (98-107); Cholesterol 144 mg/dL (0-200); Estimated Glomerular Filt Rate 31; Glucose 105 mg/dL (65-110); HDL Direct 43 mg/dL; Potassium 4.9 mmol/L (3.4-5.0); Sodium 136 mmol/L (137-145); Triglycerides 94 mg/dL (<150); Uric Acid 7.4 mg/dL (3.5-8.5)
[2020-09-08 14:28] LABS: LDL Cholesterol Direct 65 mg/dL
[2020-09-08 14:49] LABS: Vitamin D 25 Hydroxy 79.1 ng/mL
[2020-09-08 14:57] LABS: Albumin Level 4.3 g/dL (3.5-5.1)
[2020-09-08 16:59] LABS: Immunoglobulin G 714 mg/dL (700-1600)
[2020-09-10 22:46] LABS: Albumin 3.6 g/dL (3.8-4.8); Alpha 1 Globulin 0.3 g/dL (0.2-0.3); Beta 1 Globulin 0.5 g/dL (0.4-0.6); Gamma Globulin 0.7 g/dL (0.8-1.7); Protein, Total 6.6 g/dL (6.1-8.1)
[2020-09-12 12:52] LABS: Beta-2-Microglobulin 4.27 mg/L (<=2.51)
== END 2020-09-08 13:29 | disposition home or self-care (01) ==
PROVIDERS: PCP Family Medicine; Visit Provider Internal Medicine Medical Oncology
DX: E11.9 Type 2 diabetes mellitus without complications (principal); I10 Essential (primary) hypertension; E55.9 Vitamin D deficiency, unspecified; N18.30 Chronic kidney disease, stage 3 unspecified; E78.5 Hyperlipidemia, unspecified; Z79.899 Other long term (current) drug therapy
CPT/HCPCS: 36415; 72070; 72110; 80048; 80061; 80076; 82040; 82232; 82306; 82784; 83036; 84155; 84165; 84550; 85025

== ENCOUNTER 2020-09-13 13:56 | Outpatient (NON) | payer MEDICARE, SELFPAY ==
[2020-09-20 15:32] LABS: Kappa\\Lambda Light Chains 2.93
== END 2020-09-13 13:57 | disposition home or self-care (01) ==
LOC: ANHLAB 14:06
PROVIDERS: PCP Family Medicine; Visit Provider Internal Medicine Medical Oncology
DX: C90.00 Multiple myeloma not having achieved remission (principal)
CPT/HCPCS: 83883

== ENCOUNTER 2020-10-24 15:46 | Outpatient (CLI) | payer MEDICARE, SELFPAY ==
--- NOTE | 2020-10-24 | ECG_ITS ---
Measurements Intervals [place] Rate: 67 P: 79 IN: 282 QRS: 45 QRSD: 105 T: 0 QT: 410 QTc: 435 Interpretive Statements SINUS RHYTHM WITH FIRST DEGREE AV BLOCK LOW QRS VOLTAGE IN PRECORDIAL LEADS MINIMAL Q WAVES- INFERIOR LEADS ANTEROSEPTAL INFARCT, AGE INDETERMINATE BORDERLINE ST-T WAVE ABNORMALITY- INFERIOR LEADS BASELINE ARTIFACT- I, II, III, AVR, AVL, AVF, V1, V3-V6 ABNORMAL ECG Electronically Signed On 10-24-2020 16:40:59 CDT by Andrea Floyd D.O.
[2020-10-24 16:28] LABS: Basophils Absolute Auto 0.1 K/mm3 (0.0-0.1); Basophils Percent Auto 0.8 % (0.2-1.2); Eosinophils Absolute Auto 0.3 K/mm3 (0-0.3); Eosinophils Percent Auto 3.1 % (0-4.4); Hematocrit 49.6 % (42.0-52.0); Hemoglobin 15.9 g/dL (14.0-18.0); Immature Granulocyte Absolute 0.04 K/mm3 (0.00-0.031); Immature Granulocyte Percent A 0.5 % (0-0.5); Lymphocytes Absolute Auto 1.88 K/mm3 (0.9-3.2); Lymphocytes Percent Auto 23.5 % (18.3-44.2); Mean Corpuscular HGB Conc 32.1 g/dl (32-36); Mean Corpuscular Hemoglobin 28.4 pg (26-34); Mean Corpuscular Volume 88.6 fl (80-100); Mean Platelet Volume 10.7 fl (7.4-10.4); Monocytes Percent Auto 12.3 % (2.6-8.5); Neutrophils Absolute Auto 4.8 K/mm3 (1.3-6.7); Neutrophils Percent Auto 59.8 % (45.5-73.1); Platelet Count Result 179 k/mm3 (150-375); Red Cell Distribution Width 15.5 % (11.5-14.5)
[2020-10-24 16:33] LABS: Add Urine Microscopic? YES; Appearance Urine Clear (Clear); Bilirubin Urine Negative (Negative); Blood Urine Negative (Negative); Color Urine Yellow (Yellow); Glucose Urine UA 3+ mg/dL (Negative); Ketones Urine Negative (Negative); Leukocyte Esterase Ur Negative LEU/UL (Negative); Mucus Urine Rare /lpf; Nitrate Urine Negative (Negative); Protein Urine Negative (Negative); RBC Urine 0-2 /hpf (0-2); Specific Grav Ur 1.018 (1.001-1.035); WBC Urine 0-3 /hpf
[2020-10-24 16:39] LABS: Alanine Aminotransferase 30 U/L (4-50); Albumin Level 4.4 g/dL (3.5-5.1); Alkaline Phosphatase 97 U/L (38-126); Anion Gap 11 mmol/L (8-16); Aspartate Amino Transferase 35 U/L (17-59); Bilirubin,Total 2.1 mg/dL (0.2-1.3); Blood Urea Nitrogen 48 mg/dL (9-20); Calcium 9.3 mg/dL (8.4-10.2); Carbon Dioxide 22 mmol/L (22-30); Chloride 104 mmol/L (98-107); Estimated Glomerular Filt Rate 28; Glucose 94 mg/dL (65-110); Potassium 4.8 mmol/L (3.4-5.0); Sodium 137 mmol/L (137-145)
== END 2020-10-24 15:47 | disposition home or self-care (01) ==
LOC: ANHLAB 15:47
PROVIDERS: PCP Family Medicine; Visit Provider Anesthesiology
DX: Z01.818 Encounter for other preprocedural examination (principal); M96.1 Postlaminectomy syndrome, not elsewhere classified; R82.90 Unspecified abnormal findings in urine; I25.2 Old myocardial infarction
CPT/HCPCS: 36415; 80053; 81001; 85025; 93005

== ENCOUNTER 2020-11-09 17:27 | Outpatient (CLI) | payer MEDICARE, SELFPAY ==
[2020-11-09 17:51] LABS: Basophils Absolute Auto 0.1 K/mm3 (0.0-0.1); Basophils Percent Auto 0.7 % (0.2-1.2); Eosinophils Absolute Auto 0.3 K/mm3 (0-0.3); Eosinophils Percent Auto 4.1 % (0-4.4); Hematocrit 46.5 % (42.0-52.0); Hemoglobin 15.3 g/dL (14.0-18.0); Immature Granulocyte Absolute 0.03 K/mm3 (0.00-0.031); Immature Granulocyte Percent A 0.4 % (0-0.5); Lymphocytes Absolute Auto 1.27 K/mm3 (0.9-3.2); Lymphocytes Percent Auto 18.1 % (18.3-44.2); Mean Corpuscular HGB Conc 32.9 g/dl (32-36); Mean Corpuscular Hemoglobin 28.5 pg (26-34); Mean Corpuscular Volume 86.6 fl (80-100); Mean Platelet Volume 9.9 fl (7.4-10.4); Monocytes Absolute Auto 0.7 K/mm3 (0.1-0.6); Monocytes Percent Auto 9.7 % (2.6-8.5); Neutrophils Absolute Auto 4.7 K/mm3 (1.3-6.7); Platelet Count Result 184 k/mm3 (150-375); Red Blood Count 5.37 M/mm3 (4.6-6.20); Red Cell Distribution Width 14.9 % (11.5-14.5)
[2020-11-09 18:08] LABS: Alanine Aminotransferase 32 U/L (4-50); Albumin Level 4.3 g/dL (3.5-5.1); Alkaline Phosphatase 100 U/L (38-126); Anion Gap 12 mmol/L (8-16); Aspartate Amino Transferase 31 U/L (17-59); Bilirubin,Total 1.8 mg/dL (0.2-1.3); Blood Urea Nitrogen 44 mg/dL (9-20); Calcium 9.2 mg/dL (8.4-10.2); Carbon Dioxide 24 mmol/L (22-30); Chloride 100 mmol/L (98-107); Estimated Glomerular Filt Rate 28; Glucose 206 mg/dL (65-110); Potassium 5.3 mmol/L (3.4-5.0); Sodium 136 mmol/L (137-145)
[2020-11-09 18:15] LABS: Immunoglobulin A 287 mg/dL (70-400); Immunoglobulin G 732 mg/dL (700-1600); Immunoglobulin M 41 mg/dL (40-230)
[2020-11-12 22:41] LABS: Albumin 3.6 g/dL (3.8-4.8); Alpha 1 Globulin 0.4 g/dL (0.2-0.3); Alpha 2 Globulin 1.1 g/dL (0.5-0.9); Beta 1 Globulin 0.5 g/dL (0.4-0.6); Gamma Globulin 0.7 g/dL (0.8-1.7); Protein, Total 6.7 g/dL (6.1-8.1)
[2020-11-13 23:36] LABS: Kappa\\Lambda Light Chains 1.88 (0.26-1.65); Lambda Light Chain 22.9 mg/L (5.7-26.3)
== END 2020-11-09 17:28 | disposition home or self-care (01) ==
LOC: ANHLAB 17:30
PROVIDERS: PCP Family Medicine; Visit Provider Internal Medicine Medical Oncology
DX: C90.00 Multiple myeloma not having achieved remission (principal)
CPT/HCPCS: 36415; 80053; 82784; 83883; 84155; 84165; 85025; 86146

== ENCOUNTER → 2020-11-16 13:18 | Outpatient (CLI) | payer MEDICARE, SELFPAY ==
--- NOTE | ~2020-11-16 | DEXA_ITS ---
Bone Density Report Name: Cal Yang Age: 75 Sex: Male Ethnicity: White Date of : 1945 Indication: screening for osteoporosis; height loss; prior fracture; cancer; Referring Provider: MARIE, JOCY Lizama Study: Bone densitometry was performed. Exam Date: November 16, 2020 Accession number: [id number] Bone Density: Region BMD T-score Z-score Classification AP Spine (L1, L2) 1.220 1.5 2.6 Normal Femoral Neck (Left) 0.673 -1.9 -0.5 Osteopenia Total Hip (Left) 0.927 -0.7 0.2 Normal Femoral Neck (Right) 0.684 -1.8 -0.4 Osteopenia Total Hip (Right) 0.856 -1.2 -0.3 Osteopenia Total Hip Mean 0.892 -1.0 -0.1 Normal World Health Organization criteria for BMD impression classify patients as: Normal (T-score at or above -1.0), Osteopenia (T-score between -1.0 and -2.5), or Osteoporosis (T-score at or below -2.5). 10-year Fracture Risk(1): Major Osteoporotic Fracture 10% Hip Fracture 3.2% Reported Risk Factors: [place] (), Neck BMD=0.673, BMI=39.9, previous fracture (1) FRAX(R) Version 3.08. Fracture probability calculated for an untreated patient. Fracture probability may be lower if the patient has received treatment. Clinical Information Provided by Patient: Has had a low trauma fracture Has used the following medications: Vitamin D, Calcium Has the following medical conditions: Cancer Patient maximum height was 72.0 No regular weight bearing exercise Drinks caffeinated beverages Impression: The patient has low bone mass, based on the Left Femoral Neck T-score. The patient has an estimated ten-year risk of hip fracture of 3.2% and an estimated ten-year risk of major fracture of 10%, based on the WHO FRAX algorithm. The patient has risk factors, including: previous fracture. Discussion: BONE DENSITY IS LOW AT ONE OR MORE SKELETAL SITES. THE PATIENT'S BMD AND CLINICAL RISK FACTORS CONTRIBUTE TO THIS PATIENT'S INCREASED RISK OF FRACTURE. This patient's lowest T-score is low at one or more skeletal sites. It meets the World Health Organization's (WHO) criteria for ?low bone mass? (T-score between -1.0 and -2.5). The patient's 10-year risk of hip fracture as calculated by FRAX exceeds the threshold where pharmacological therapy is recommended by the National Osteoporosis Foundation (NOF). However, all treatment decisions require clinical judgment and consideration of individual patient factors, including patient preferences, comorbidities, previous drug use, risk factors not captured in the FRAX model (e.g., frailty, falls, vitamin D deficiency, increased bone turnover, interval significant decline in bone density) and possible under or overestimation of fracture risk by FRAX. The patient should follow a healthful lifestyle (good nutrition with adequate calcium and vitamin D, and appropria
== END ==
PROVIDERS: PCP Family Medicine; Visit Provider Family Medicine
DX: M85.851 Other specified disorders of bone density and structure, right thigh (principal); M85.852 Other specified disorders of bone density and structure, left thigh
CPT/HCPCS: 77080

== ENCOUNTER 2020-12-20 11:13 | Outpatient (CLI) | payer MEDICARE, SELFPAY ==
[2020-12-20 12:07] LABS: Creatinine Urine 42.7 mg/dL; Total Protein Urine Random 7 mg/dL; Ur Ttl Prot Creatinine Ratio 0.16 mg/mg (0-0.20)
[2020-12-20 12:09] LABS: Hematocrit 45.4 % (42.0-52.0); Hemoglobin 14.7 g/dL (14.0-18.0); Mean Corpuscular HGB Conc 32.4 g/dl (32-36); Mean Corpuscular Hemoglobin 29.1 pg (26-34); Mean Corpuscular Volume 89.9 fl (80-100); Mean Platelet Volume 10.8 fl (7.4-10.4); Platelet Count Result 158 k/mm3 (150-375); Red Blood Count 5.05 M/mm3 (4.6-6.20); Red Cell Distribution Width 15.5 % (11.5-14.5)
[2020-12-20 12:10] LABS: Anion Gap 10 mmol/L (8-16); Blood Urea Nitrogen 49 mg/dL (9-20); Calcium 9.1 mg/dL (8.4-10.2); Carbon Dioxide 23 mmol/L (22-30); Chloride 104 mmol/L (98-107); Estimated Glomerular Filt Rate 33; Glucose 222 mg/dL (65-110); Phosphorus 3.6 mg/dL (2.5-4.5); Sodium 137 mmol/L (137-145)
[2020-12-20 13:19] LABS: Parathyroid Intact 143.9 pg/mL (7.5-53.5)
== END 2020-12-20 11:14 | disposition home or self-care (01) ==
PROVIDERS: PCP Family Medicine; Visit Provider Internal Medicine Nephrology
DX: N18.32 Chronic kidney disease, stage 3b (principal)
CPT/HCPCS: 36415; 80069; 82570; 83970; 84156; 85027

== ENCOUNTER 2021-01-15 16:35 | Outpatient (CLI) | payer MEDICARE, SELFPAY ==
[2021-01-15 17:23] LABS: Basophils Absolute Auto 0.1 K/mm3 (0.0-0.1); Basophils Percent Auto 0.7 % (0.2-1.2); Eosinophils Absolute Auto 0.2 K/mm3 (0-0.3); Eosinophils Percent Auto 3.6 % (0-4.4); Hematocrit 47.1 % (42.0-52.0); Hemoglobin 15.3 g/dL (14.0-18.0); Immature Granulocyte Absolute 0.03 K/mm3 (0.00-0.031); Immature Granulocyte Percent A 0.4 % (0-0.5); Lymphocytes Absolute Auto 1.41 K/mm3 (0.9-3.2); Mean Corpuscular HGB Conc 32.5 g/dl (32-36); Mean Corpuscular Hemoglobin 29.3 pg (26-34); Mean Corpuscular Volume 90.1 fl (80-100); Mean Platelet Volume 10.3 fl (7.4-10.4); Monocytes Absolute Auto 0.8 K/mm3 (0.1-0.6); Monocytes Percent Auto 11.6 % (2.6-8.5); Neutrophils Absolute Auto 4.2 K/mm3 (1.3-6.7); Neutrophils Percent Auto 62.7 % (45.5-73.1); Platelet Count Result 165 k/mm3 (150-375); Red Blood Count 5.23 M/mm3 (4.6-6.20); Red Cell Distribution Width 15.5 % (11.5-14.5); White Blood Count 6.7 K/mm3 (4.5-10.0)
[2021-01-15 17:38] LABS: Alanine Aminotransferase 31 U/L (4-50); Albumin Level 4.2 g/dL (3.5-5.1); Alkaline Phosphatase 104 U/L (38-126); Anion Gap 8 mmol/L (8-16); Aspartate Amino Transferase 30 U/L (17-59); Bilirubin,Total 1.6 mg/dL (0.2-1.3); Blood Urea Nitrogen 35 mg/dL (9-20); Calcium 9.3 mg/dL (8.4-10.2); Carbon Dioxide 27 mmol/L (22-30); Chloride 101 mmol/L (98-107); Estimated Glomerular Filt Rate 35; Glucose 130 mg/dL (65-110); Potassium 4.6 mmol/L (3.4-5.0); Sodium 136 mmol/L (137-145)
[2021-01-15 17:44] LABS: Immunoglobulin A 252 mg/dL (70-400)
[2021-01-17 16:31] LABS: Albumin 3.4 g/dL (3.8-4.8); Alpha 1 Globulin 0.3 g/dL (0.2-0.3); Beta 1 Globulin 0.4 g/dL (0.4-0.6); Gamma Globulin 0.7 g/dL (0.8-1.7); Protein, Total 6.3 g/dL (6.1-8.1)
[2021-01-17 17:35] LABS: Kappa\\Lambda Light Chains 1.06 (0.26-1.65); Lambda Light Chain 19.2 mg/L (5.7-26.3)
[2021-01-22 08:17] LABS: ANA Cascade Screen Interpretat 1:40
== END 2021-01-15 16:36 | disposition home or self-care (01) ==
LOC: ANHLAB 16:44
PROVIDERS: PCP Family Medicine; Visit Provider Internal Medicine Medical Oncology
DX: C90.00 Multiple myeloma not having achieved remission (principal); L93.0 Discoid lupus erythematosus; R42 Dizziness and giddiness; R53.83 Other fatigue; R11.0 Nausea
CPT/HCPCS: 36415; 80053; 82784; 83883; 84155; 84165; 85025; 86038; 86039; 86225

== ENCOUNTER 2021-01-22 12:44 | Outpatient (CLI) | payer MEDICARE, SELFPAY ==
[2021-01-22 13:22] LABS: Basophils Absolute Auto 0.1 K/mm3 (0.0-0.1); Basophils Percent Auto 0.9 % (0.2-1.2); Eosinophils Absolute Auto 0.2 K/mm3 (0-0.3); Eosinophils Percent Auto 2.8 % (0-4.4); Hematocrit 46.8 % (42.0-52.0); Hemoglobin 15.1 g/dL (14.0-18.0); Immature Granulocyte Absolute 0.03 K/mm3 (0.00-0.031); Immature Granulocyte Percent A 0.4 % (0-0.5); Mean Corpuscular HGB Conc 32.3 g/dl (32-36); Mean Corpuscular Hemoglobin 28.7 pg (26-34); Mean Platelet Volume 10.3 fl (7.4-10.4); Monocytes Absolute Auto 0.8 K/mm3 (0.1-0.6); Neutrophils Absolute Auto 4.6 K/mm3 (1.3-6.7); Neutrophils Percent Auto 61.9 % (45.5-73.1); Platelet Count Result 176 k/mm3 (150-375); Red Blood Count 5.26 M/mm3 (4.6-6.20); Red Cell Distribution Width 15.1 % (11.5-14.5); White Blood Count 7.4 K/mm3 (4.5-10.0)
[2021-01-22 13:31] LABS: Hemoglobin A1C 7.1 % (<5.7)
[2021-01-22 13:37] LABS: Alanine Aminotransferase 31 U/L (4-50); Albumin Level 4.2 g/dL (3.5-5.1); Alkaline Phosphatase 105 U/L (38-126); Anion Gap 8 mmol/L (8-16); Aspartate Amino Transferase 29 U/L (17-59); Bilirubin,Total 1.1 mg/dL (0.2-1.3); Blood Urea Nitrogen 57 mg/dL (9-20); Calcium 9.5 mg/dL (8.4-10.2); Carbon Dioxide 22 mmol/L (22-30); Chloride 102 mmol/L (98-107); Cholesterol 138 mg/dL (0-200); Estimated Glomerular Filt Rate 26; Glucose 141 mg/dL (65-110); HDL Direct 39 mg/dL; Potassium 4.8 mmol/L (3.4-5.0); Sodium 132 mmol/L (137-145); Triglycerides 53 mg/dL (<150); Uric Acid 9.5 mg/dL (3.5-8.5)
[2021-01-22 13:48] LABS: LDL Cholesterol Direct 76 mg/dL
[2021-01-22 16:17] LABS: Vitamin D 25 Hydroxy 74.5 ng/mL
== END 2021-01-22 12:45 | disposition home or self-care (01) ==
PROVIDERS: PCP Family Medicine; Visit Provider Family Medicine
DX: E11.9 Type 2 diabetes mellitus without complications (principal); E55.9 Vitamin D deficiency, unspecified; I10 Essential (primary) hypertension; N18.30 Chronic kidney disease, stage 3 unspecified; E78.5 Hyperlipidemia, unspecified; Z79.899 Other long term (current) drug therapy
CPT/HCPCS: 36415; 80048; 80061; 80076; 82306; 83036; 84550; 85025

== ENCOUNTER 2021-01-24 11:48 | Outpatient (CLI) | payer MEDICARE, SELFPAY ==
--- NOTE | 2021-01-24 | ECG_ITS ---
Measurements Intervals [place] Rate: 57 P: 44 DC: 286 QRS: 24 QRSD: 105 T: -9 QT: 455 QTc: 444 Interpretive Statements SINUS BRADYCARDIA WITH FIRST DEGREE AV BLOCK LOW QRS VOLTAGE IN PRECORDIAL LEADS ANTEROSEPTAL INFARCT, AGE INDETERMINATE CONSIDER INFERIOR INFARCT, AGE INDETERMINATE BASELINE ARTIFACT- I, III, AVL, AVF ABNORMAL ECG Electronically Signed On 01-24-2021 14:27:58 ART PREPARATOR by Andrea Floyd D.O.
[2021-01-24 14:01] LABS: Basophils Absolute Auto 0.1 K/mm3 (0.0-0.1); Basophils Percent Auto 0.7 % (0.2-1.2); Eosinophils Absolute Auto 0.2 K/mm3 (0-0.3); Hemoglobin 16.4 g/dL (14.0-18.0); Immature Granulocyte Absolute 0.05 K/mm3 (0.00-0.031); Immature Granulocyte Percent A 0.6 % (0-0.5); Lymphocytes Absolute Auto 1.94 K/mm3 (0.9-3.2); Lymphocytes Percent Auto 23.9 % (18.3-44.2); Mean Corpuscular HGB Conc 32.8 g/dl (32-36); Mean Corpuscular Hemoglobin 29.2 pg (26-34); Mean Corpuscular Volume 89.1 fl (80-100); Mean Platelet Volume 10.6 fl (7.4-10.4); Monocytes Absolute Auto 0.8 K/mm3 (0.1-0.6); Monocytes Percent Auto 10.1 % (2.6-8.5); Neutrophils Percent Auto 61.7 % (45.5-73.1); Platelet Count Result 188 k/mm3 (150-375); Red Blood Count 5.61 M/mm3 (4.6-6.20); Red Cell Distribution Width 15.1 % (11.5-14.5); White Blood Count 8.1 K/mm3 (4.5-10.0)
[2021-01-24 14:04] LABS: Add Urine Microscopic? YES; Appearance Urine Clear (Clear); Bilirubin Urine Negative (Negative); Blood Urine Negative (Negative); Color Urine Straw (Yellow); Glucose Urine UA 3+ mg/dL (Negative); Ketones Urine Negative (Negative); Leukocyte Esterase Ur Negative LEU/UL (Negative); Mucus Urine Rare /lpf; Nitrate Urine Negative (Negative); Protein Urine Negative (Negative); RBC Urine 0-2 /hpf (0-2); Specific Grav Ur 1.009 (1.001-1.035); Squamous Epithelial Cell Urine Rare /hpf (Few); Urobilinogen Urine Negative mg/dL (<2.0); WBC Urine 0-3 /hpf
[2021-01-24 14:15] LABS: Alanine Aminotransferase 37 U/L (4-50); Albumin Level 4.6 g/dL (3.5-5.1); Alkaline Phosphatase 114 U/L (38-126); Anion Gap 10 mmol/L (8-16); Aspartate Amino Transferase 34 U/L (17-59); Bilirubin,Total 1.5 mg/dL (0.2-1.3); Blood Urea Nitrogen 43 mg/dL (9-20); Calcium 10.1 mg/dL (8.4-10.2); Carbon Dioxide 26 mmol/L (22-30); Chloride 102 mmol/L (98-107); Estimated Glomerular Filt Rate 35; Glucose 118 mg/dL (65-110); Potassium 4.7 mmol/L (3.4-5.0); Sodium 138 mmol/L (137-145)
== END 2021-01-24 11:49 | disposition home or self-care (01) ==
PROVIDERS: PCP Family Medicine
DX: I21.9 Acute myocardial infarction, unspecified (principal); M96.1 Postlaminectomy syndrome, not elsewhere classified; M48.062 Spinal stenosis, lumbar region with neurogenic claudication; R82.90 Unspecified abnormal findings in urine; R00.1 Bradycardia, unspecified; I44.0 Atrioventricular block, first degree
CPT/HCPCS: 36415; 80053; 81001; 85025; 93005

== ENCOUNTER 2021-03-15 16:57 | Outpatient (CLI) | payer MEDICARE, SELFPAY ==
[2021-03-15 17:41] LABS: Alanine Aminotransferase 29 U/L (4-50); Albumin Level 4.3 g/dL (3.5-5.1); Alkaline Phosphatase 102 U/L (38-126); Anion Gap 10 mmol/L (8-16); Aspartate Amino Transferase 30 U/L (17-59); Bilirubin,Total 1.7 mg/dL (0.2-1.3); Blood Urea Nitrogen 47 mg/dL (9-20); Calcium 9.4 mg/dL (8.4-10.2); Carbon Dioxide 24 mmol/L (22-30); Chloride 103 mmol/L (98-107); Estimated Glomerular Filt Rate 25; Glucose 93 mg/dL (65-110); Potassium 4.5 mmol/L (3.4-5.0); Sodium 137 mmol/L (137-145)
[2021-03-15 17:46] LABS: Basophils Absolute Auto 0.1 K/mm3 (0.0-0.1); Basophils Percent Auto 0.7 % (0.2-1.2); Eosinophils Absolute Auto 0.3 K/mm3 (0-0.3); Eosinophils Percent Auto 4.3 % (0-4.4); Hematocrit 46.8 % (42.0-52.0); Hemoglobin 15.3 g/dL (14.0-18.0); Immature Granulocyte Absolute 0.03 K/mm3 (0.00-0.031); Immature Granulocyte Percent A 0.4 % (0-0.5); Lymphocytes Absolute Auto 1.63 K/mm3 (0.9-3.2); Lymphocytes Percent Auto 23.2 % (18.3-44.2); Mean Corpuscular HGB Conc 32.7 g/dl (32-36); Mean Corpuscular Volume 88.8 fl (80-100); Mean Platelet Volume 10.5 fl (7.4-10.4); Monocytes Absolute Auto 0.9 K/mm3 (0.1-0.6); Monocytes Percent Auto 12.1 % (2.6-8.5); Neutrophils Absolute Auto 4.2 K/mm3 (1.3-6.7); Neutrophils Percent Auto 59.3 % (45.5-73.1); Platelet Count Result 173 k/mm3 (150-375); Red Blood Count 5.27 M/mm3 (4.6-6.20); Red Cell Distribution Width 15.5 % (11.5-14.5)
[2021-03-15 18:54] LABS: Immunoglobulin A 267 mg/dL (70-400)
[2021-03-19 14:06] LABS: Kappa\\Lambda Light Chains 2.54 (0.26-1.65); Lambda Light Chain 17.2 mg/L (5.7-26.3)
[2021-03-20 15:51] LABS: Beta-2-Microglobulin 4.27 mg/L (<=2.51)
[2021-03-20 16:33] LABS: Albumin 3.6 g/dL (3.8-4.8); Alpha 1 Globulin 0.4 g/dL (0.2-0.3); Beta 1 Globulin 0.5 g/dL (0.4-0.6); Gamma Globulin 0.6 g/dL (0.8-1.7); Protein, Total 6.6 g/dL (6.1-8.1)
== END 2021-03-15 16:58 | disposition home or self-care (01) ==
PROVIDERS: PCP Family Medicine; Visit Provider Internal Medicine Medical Oncology
DX: C90.00 Multiple myeloma not having achieved remission (principal)
CPT/HCPCS: 36415; 80053; 82232; 82784; 83883; 84155; 84165; 85025

== ENCOUNTER 2021-05-02 11:00 | Outpatient (RCR) | payer MEDICARE, SELFPAY ==
--- NOTE | 2021-03-15 11:55 | PTOPEVAL ---
PHYSICAL THERAPY EVALUATION AND PLAN OF CARE 03-15-21 Thank you for referring Cal Yang to [facility] for the diagnosis of lumbar spinal stenosis. He is scheduled to be seen for therapy? 2 x/week for 6 weeks. He will be out of town for 2 weeks of this time frame. Please review, sign, date and return this plan of care CAITLIN. I agree with and certify that the following plan of care is medically necessary. Referring Physician Date Referring Provider: GASPER Juan *PT Outpatient Evaluation Document 03/15/21 10:30 WESLEY (Rec: 03/15/21 11:55 WESLEY [id number]) Past Medical History Source of Past Medical History Patient Neurological History Hx Other Neurological Disorders Yes: neuropathy in R and L LE feet- to above ankles Cardiovascular History Hx Coronary Artery Bypass Graft Yes: cardiac stents x2; Hx Other Cardiac Disorders Yes: IN Respiratory History Hx Respiratory Disorders No Significant History Gastrointestinal History Hx Other Gastrointestinal Disorders Yes: colostomy due to diverticulitis, then reversed Genitourinary History Hx Genitourinary Disorders No Significant History Musculoskeletal History Hx Arthritis Yes: L frozen shoulder-surgery canceled due to incr back pain Hx Orthopedic Surgery Yes: B carpal tunnel & ulnar N release;B TKR, L knee arthroscopy Hx Spinal Surgery Yes Hx Other Musculoskeletal Disorders Yes: R&L SIJ fusions; 2009- lumbar fusion L 3-4-5; osteopenia;nerve stimulator Endocrine History Hx Endocrine Disorders No Significant History HEENT History Hx Cataracts Yes: B surgery Other History Hx Cancer Yes: prostate with radiation; multiple myeoloma Hx Radiation Therapy Yes Hx Other Medical Conditions Yes: Blood clot L LE, IVC filter Evaluation Information Problem Diagnosis lumbar spinal stenosis Onset 01-31-21 Subjective Information had lumbar decompression Query Text:As Reported By Patient/ surgery; pain decreased after Family surgery, for few weeks, then now returned Prior Level of Function Activity Level (Last 3 Months) Occupation retired Home Setting Home Type House,Multiple Levels Living Situation With Spouse Mobility Assistive Devices (Used Last 3 None,Cane,Walker, Standard Months) Bathroom Environment Bathtub, Standard Bathing Equipment Grab Bars Comments Additional Pr
--- NOTE | 2021-03-15 14:26 | PCPTNOTE ---
during the evaluation today, pt reported he will be out of town for 2 weeks, from Apr 01 to ; and not able to attend PT during this time frame.
--- NOTE | 2021-03-20 14:01 | PCPTNOTE ---
Patient called & cancelled scheduled appointment this date due to not feeling well.
--- NOTE | 2021-03-29 11:02 | PCPTNOTE ---
Patient called & cancelled scheduled appointment this date due to snowy weather.
--- NOTE | 2021-05-02 11:52 | PTOPEVAL ---
PHYSICAL THERAPY DISCHARGE 05-02-21 Refer to the clinical summary below, for his status today, compared to the initial evaluation. Discharge PT services. The goals were partially achieved. Thank you for referring Cal Yang to [facility] Please review, sign, date and return Discharge report CAITLIN. I agree with and certify that the following plan of care is medically necessary. Referring Physician Date Referring Provider: GASPER Juan Document 05/02/21 11:00 WESLEY (Rec: 05/02/21 11:49 WESLEY [id number]) Subjective Information Cal reports: feel like Query Text:As Reported By Patient/ therapy is helping my back, Family feel good that day and into the next day after therapy; saw few days ago, no new changes from dr-- may consider an implanted pain pump; told him he is walking less like an old man; Pain Assessment Timing of Pain Assessment Timing of Pain Assessment Assessment Pain Scale Pain Scale Used Numeric (1 - 10) Self Report Pain Assessment Bilateral Back Reported Pain Level 6 Radicular Pain Location if walk too far, feel uneasy, dizzy,like going to lose my legs Pain Frequency Chronic,Continuous Other Pain Description burning and bursting sensation across low back;no leg pain Lowest Pain Intensity 3 Greatest Pain Intensity 10 Pain Aggravating Factors Walking,Weight Bearing/ Standing Other Pain Aggravating Factors when first wake up and get out of bed, sit ~ 1 hr before can do anything Pain Score 6: Self Report Additional Pain Score Comments Oswestry self assessment functional score of 48% limitation in activity standing tolerance of 10 min; when taking a shower, sometimes have to get out of shower, sit on toliet lid and then go back in discussed tub /shower seat with him-has looked at them before, but do not have one; Interventions Used Interventions Used By Clinicians Education,Exercise Pain Relief Interventions Used By Sitting Patient Other Alleviating Interventions taking oxycodone once/day in the morning, about 4 x/wk, not
== END 2021-05-02 13:57 | disposition home or self-care (01) ==
LOC: ANHPT 11:00
PROVIDERS: PCP Family Medicine
DX: M48.062 Spinal stenosis, lumbar region with neurogenic claudication (principal)
CPT/HCPCS: 97110; 97113; 97140; 97162

== ENCOUNTER 2021-05-11 16:48 | Outpatient (CLI) | payer MEDICARE, SELFPAY ==
[2021-05-11 17:20] LABS: Basophils Percent Auto 0.4 % (0.2-1.2); Eosinophils Absolute Auto 0.1 K/mm3 (0-0.3); Eosinophils Percent Auto 1.1 % (0-4.4); Hematocrit 47.3 % (42.0-52.0); Hemoglobin 15.6 g/dL (14.0-18.0); Immature Granulocyte Absolute 0.03 K/mm3 (0.00-0.031); Immature Granulocyte Percent A 0.4 % (0-0.5); Lymphocytes Absolute Auto 1.28 K/mm3 (0.9-3.2); Lymphocytes Percent Auto 16.1 % (18.3-44.2); Mean Corpuscular Volume 87.9 fl (80-100); Mean Platelet Volume 11.1 fl (7.4-10.4); Monocytes Absolute Auto 0.7 K/mm3 (0.1-0.6); Monocytes Percent Auto 8.9 % (2.6-8.5); Neutrophils Absolute Auto 5.8 K/mm3 (1.3-6.7); Neutrophils Percent Auto 73.1 % (45.5-73.1); Platelet Count Result 142 k/mm3 (150-375); Red Blood Count 5.38 M/mm3 (4.6-6.20); Red Cell Distribution Width 14.9 % (11.5-14.5)
[2021-05-11 17:32] LABS: Alanine Aminotransferase 34 U/L (4-50); Albumin Level 4.5 g/dL (3.5-5.1); Alkaline Phosphatase 117 U/L (38-126); Anion Gap 8 mmol/L (8-16); Aspartate Amino Transferase 34 U/L (17-59); Bilirubin,Total 1.7 mg/dL (0.2-1.3); Blood Urea Nitrogen 36 mg/dL (9-20); Calcium 9.3 mg/dL (8.4-10.2); Carbon Dioxide 28 mmol/L (22-30); Chloride 95 mmol/L (98-107); Estimated Glomerular Filt Rate 33; Glucose 127 mg/dL (65-110); Potassium 4.5 mmol/L (3.4-5.0); Sodium 131 mmol/L (137-145)
[2021-05-11 17:38] LABS: Immunoglobulin A 250 mg/dL (70-400)
[2021-05-14 12:22] LABS: Kappa\\Lambda Light Chains 2.08 (0.26-1.65); Lambda Light Chain 17.1 mg/L (5.7-26.3)
[2021-05-15 15:53] LABS: Albumin 3.7 g/dL (3.8-4.8); Alpha 1 Globulin 0.4 g/dL (0.2-0.3); Alpha 2 Globulin 1.1 g/dL (0.5-0.9); Beta 1 Globulin 0.5 g/dL (0.4-0.6); Gamma Globulin 0.7 g/dL (0.8-1.7); Protein, Total 6.7 g/dL (6.1-8.1)
[2021-05-15 22:18] LABS: Beta-2-Microglobulin 3.44 mg/L (<=2.51)
== END 2021-05-11 16:49 | disposition home or self-care (01) ==
LOC: ANHLAB 16:51
PROVIDERS: PCP Family Medicine; Visit Provider Internal Medicine Medical Oncology
DX: C90.00 Multiple myeloma not having achieved remission (principal)
CPT/HCPCS: 36415; 80053; 82232; 82784; 83883; 84155; 84165; 85025

== ENCOUNTER 2021-07-04 16:53 | Outpatient (CLI) | payer MEDICARE, SELFPAY ==
[2021-07-04 17:29] LABS: Basophils Percent Auto 0.5 % (0.2-1.2); Eosinophils Percent Auto 0.7 % (0-4.4); Hematocrit 44.5 % (42.0-52.0); Hemoglobin 14.4 g/dL (14.0-18.0); Immature Granulocyte Absolute 0.02 K/mm3 (0.00-0.031); Immature Granulocyte Percent A 0.5 % (0-0.5); Lymphocytes Absolute Auto 1.05 K/mm3 (0.9-3.2); Lymphocytes Percent Auto 24.4 % (18.3-44.2); Mean Corpuscular HGB Conc 32.4 g/dl (32-36); Mean Corpuscular Hemoglobin 27.7 pg (26-34); Mean Corpuscular Volume 85.6 fl (80-100); Mean Platelet Volume 11.8 fl (7.4-10.4); Monocytes Absolute Auto 0.6 K/mm3 (0.1-0.6); Monocytes Percent Auto 13.5 % (2.6-8.5); Neutrophils Absolute Auto 2.6 K/mm3 (1.3-6.7); Neutrophils Percent Auto 60.4 % (45.5-73.1); Platelet Count Result 144 k/mm3 (150-375); Red Cell Distribution Width 15.4 % (11.5-14.5); White Blood Count 4.3 K/mm3 (4.5-10.0)
[2021-07-04 17:45] LABS: Immunoglobulin A 246 mg/dL (70-400)
[2021-07-04 19:05] LABS: Alanine Aminotransferase 42 U/L (6-50); Albumin Level 3.9 g/dL (3.5-5.1); Alkaline Phosphatase 89 U/L (38-126); Anion Gap 7 mmol/L (8-16); Aspartate Amino Transferase 43 U/L (17-59); Bilirubin,Total 1.2 mg/dL (0.2-1.3); Blood Urea Nitrogen 43 mg/dL (9-20); Calcium 8.7 mg/dL (8.4-10.2); Carbon Dioxide 24 mmol/L (22-30); Chloride 100 mmol/L (98-107); Estimated Glomerular Filt Rate 25; Glucose 97 mg/dL (65-110); Phosphorus 4.1 mg/dL (2.5-4.5); Potassium 4.7 mmol/L (3.4-5.0); Sodium 131 mmol/L (137-145)
[2021-07-04 19:17] LABS: Parathyroid Intact 145.4 pg/mL (7.5-53.5)
[2021-07-04 19:21] LABS: Total Protein Urine Random 10 mg/dL; Ur Ttl Prot Creatinine Ratio 0.11 mg/mg (0-0.20)
[2021-07-04 19:21] LABS: Vitamin D 25 Hydroxy 79.5 ng/mL
[2021-07-07 02:04] LABS: Kappa\\Lambda Light Chains 2.59 (0.26-1.65); Lambda Light Chain 19.2 mg/L (5.7-26.3)
[2021-07-07 14:03] LABS: Albumin 3.4 g/dL (3.8-4.8); Alpha 1 Globulin 0.4 g/dL (0.2-0.3); Beta 1 Globulin 0.4 g/dL (0.4-0.6); Gamma Globulin 0.7 g/dL (0.8-1.7); Protein, Total 6.3 g/dL (6.1-8.1)
[2021-07-07 19:22] LABS: Beta-2-Microglobulin 5.63 mg/L (<=2.51)
== END 2021-07-04 16:54 | disposition home or self-care (01) ==
PROVIDERS: PCP Family Medicine; Referring Provider Internal Medicine Medical Oncology; Visit Provider Internal Medicine Nephrology
DX: N18.32 Chronic kidney disease, stage 3b (principal); E21.1 Secondary hyperparathyroidism, not elsewhere classified
CPT/HCPCS: 36415; 80053; 80069; 82232; 82306; 82570; 82784; 83883; 83970; 84155; 84156; 84165; 85025

== ENCOUNTER 2021-07-09 16:46 | Emergency (ER) | payer MEDICARE, SELFPAY ==
[2021-07-09] VITALS (48 sets, daily range): BP systolic 63–109; BP diastolic 36–80; PULSE 63–91; RESP 10–26; TEMP 36.1; O2SAT 92–100
--- NOTE | ~2021-07-09 | XR_ITS ---
EXAMINATION: XR chest port-a-cath/central DATE: 07/10/2021 01:05 INDICATION: Central line placement TECHNIQUE: frontal view of the chest was obtained. COMPARISON: Chest radiograph dated 07/09/2021 FINDINGS: Right internal jugular central venous catheter with distal tip at the cephalad superior vena cava. Sp inal stimulator leads project over the lower thoracic spine. New airspace opacities in the left lower lung zone and more subtly in the right midlung zone. No pleu ral effusion or pneumothorax. Heart size is normal. Calcified left hilar lymph nodes consistent with old granulomatous disease. IMPRESSION: 1. Opacities in the left lower and right mid lung zones concerning for pneumonia. Reviewed, dictated and finalized at location A. IMPRESSION: 1. Opacities in the left lower and right mid lung zones concerning for pneumoni a.
--- NOTE | ~2021-07-09 | XR_ITS ---
XR chest 2V 07/09/2021 17:17 Indication: Weakness, dizziness and low blood pressure Procedure: 2 view chest Comparison: Comparison to multiple prior studies sequentially, with oldest reviewed study dated 10/2008. Findings: Heart size is normal. Posterior basilar airspace disease. No pleural effusion or pneumothor ax. Advanced osteoarthritis of the left glenohumeral joint. Impression: 1: Posterior basilar infiltrates may represent atelectasis or developing pneumonia. Reviewed, dictated and finalized at location A. Impression: 1: Posterior basilar infiltrates may represent atelectasis or developing pneumo nico.
--- NOTE | 2021-07-09 16:56 | ECG_ITS ---
Measurements Intervals [place] Rate: 74 P: -56 HI: 204 QRS: 11 QRSD: 104 T: 25 QT: 426 QTc: 473 Interpretive Statements SINUS RHYTHM BORDERLINE AV CONDUCTION DELAY LOW QRS VOLTAGE IN PRECORDIAL LEADS CANNOT RULE OUT SEPTAL INFARCT, AGE INDETERMINATE CONSIDER INFERIOR INFARCT, AGE INDETERMINATE BASELINE ARTIFACT- I, III, AVR, AVL,A VF, V4-V6 ABNORMAL ECG Electronically Signed On 07-09-2021 20:13:43 CDT by Andrea Floyd D.O.
[2021-07-09 17:13] LABS: Basophils Percent Auto 0.2 % (0.2-1.2); Eosinophils Percent Auto 0.5 % (0-4.4); Hematocrit 47.9 % (42.0-52.0); Hemoglobin 15.1 g/dL (14.0-18.0); Immature Granulocyte Absolute 0.03 K/mm3 (0.00-0.031); Immature Granulocyte Percent A 0.7 % (0-0.5); Immature Platelet Fraction Pct 13.4 % (0.9-11.2); Lymphocytes Absolute Auto 0.46 K/mm3 (0.9-3.2); Lymphocytes Percent Auto 11.4 % (18.3-44.2); Mean Corpuscular HGB Conc 31.5 g/dl (32-36); Mean Corpuscular Volume 85.7 fl (80-100); Monocytes Absolute Auto 0.6 K/mm3 (0.1-0.6); Monocytes Percent Auto 13.8 % (2.6-8.5); Neutrophils Percent Auto 73.4 % (45.5-73.1); Platelet Count Result 72 k/mm3 (150-375); Red Blood Count 5.59 M/mm3 (4.6-6.20); Red Cell Distribution Width 15.5 % (11.5-14.5); White Blood Count 4.1 K/mm3 (4.5-10.0)
[2021-07-09 17:21] LABS: Alanine Aminotransferase 75 U/L (6-50); Albumin Level 4.3 g/dL (3.5-5.1); Alkaline Phosphatase 100 U/L (38-126); Anion Gap 8 mmol/L (8-16); Aspartate Amino Transferase 93 U/L (17-59); Bilirubin,Total 1.9 mg/dL (0.2-1.3); Blood Urea Nitrogen 38 mg/dL (9-20); Calcium 9.1 mg/dL (8.4-10.2); Carbon Dioxide 24 mmol/L (22-30); Chloride 100 mmol/L (98-107); Estimated CRCL calculation 26 ml/min; Estimated Glomerular Filt Rate 22; Glucose 139 mg/dL (65-110); Potassium 4.2 mmol/L (3.4-5.0); Sodium 132 mmol/L (137-145)
[2021-07-09 17:30] LABS: INR 1.5; Prothrombin Time 17.3 Seconds (11.1-14.7)
[2021-07-09 17:31] LABS: Partial Thromboplastin Time 32.5 SECONDS (22.3-36.8)
--- NOTE | 2021-07-09 17:41 | PC.NURSE ---
Pt attempting to provide urine sample at this time
--- NOTE | 2021-07-09 17:46 | ED.GENADULT ---
HPI - General Adult General Chief complaint: Weakness <SKY Temple Last Filed: 07/10/21 04:21> Stated complaint: DIARRHEA [id number], WEAKNESS <SKY Temple Last Filed: 07/10/21 04:21> Time Seen by Provider: 07/09/21 17:44 <SKY Temple Last Filed: 07/10/21 04:21> Source: patient <SKY Temple Last Filed: 07/10/21 04:21> Mode of arrival: ambulatory <SKY Temple Last Filed: 07/10/21 04:21> Limitations: no limitations <SKY Temple Last Filed: 07/10/21 04:21> History of Present Illness HPI narrative: Patient is a 75-year-old male who presents the ED with report of diarrhea, weakness, and low BP. Patient is currently on Ninlaro oral chemotherapy for multiple myeloma. He has been on this drug for the past 4 months. His oncologist is Dr. Orona at [facility]. Patient reports he began to feel unwell on with chills and weakness. He has had a fever documented at home, anywhere from 99 degrees to 101 degrees. He developed diarrhea night and has had several episodes of profuse watery diarrhea since then. Has noticed some blood when he wipes, but does note a history of external hemorrhoids in the past. No blood mixed with stool or in toilet. He has not been eating or drinking well at home to try to avoid having bowel movements. Patient also reports having lightheadedness, dizziness, weakness, nausea. He has not vomited. Today, he noted his blood pressure to be low in the 60s, which prompted him to come to the ED. He did call his oncologist to inform him of this. Patient denies any recent cough or cold symptoms. No urinary symptoms. No significant abdominal pain, CP, SOB. He notes he has had low BP before and required fluids. He does take Olmesartan for HTN and took this today. <SKY Temple Last Filed: 07/10/21 04:21> Related Data Home medications: Home Medications Medication Instructions Recorded Confirmed amiodarone 200 mg tablet 200 mg PO DAILY 04/22/19 cholecalciferol (vitamin D3) 50 2,000 unit PO DAILY 04/22/19 mcg (2,000 unit) tablet ezetimibe 10 mg tablet 10 mg PO DAILY 04/22/19 furosemide 20 mg tablet 20 mg PO DAILY tablet 04/22/19 ixazomib 4 mg capsule See Rx Instructions PO .COMPLEX 04/22/19 nitroglycerin 0.4 mg sublingual See Rx Instructions .ROUTE .COMPLEX 04/22/19 tablet spironolactone 25 mg tablet 25 mg PO DAILY 04/22/19 apixaban [Eliquis] mg 07/09/21 07/09/21 dulaglutide [Trulicity] 1.5 mg SUBCUT 07/09/21 empagliflozin [Jardiance] 25 mg PO 07/09/21 gabapentin 300 mg PO 07/09/21 gabapentin 800 mg PO 07/09/21 oxycodone-acetaminophen 07/09/21 07/09/21 <SKY Temple Last Filed: 07/10/21 04:21> Allergies/adverse reactions: Allergies Allergy/AdvReac Type Severity Reaction Status Date / Time NSAIDS (Non-Steroidal Allergy Mild Unknown Verified 07/09/21 17:36 Anti-Inflamma niacin Allergy Unknown Unknown Verified 07/09/21 17:36 <SKY Temple Last Filed: 07/10/21 04:21> Review of Systems Review of Systems: CONSTITUTIONAL: Reports fever, chills. ENT: Denies rhinorrhea, congestion, sore throat. CARDIOVASCULAR: Denies chest pain. RESPIRATORY: Denies cough or dyspnea. GASTROINTESTINAL: Reports nausea, diarrhea, rectal bleeding with wiping. Denies abdominal pain, vomiting. GENITOURINARY: Denies dysuria or hematuria. MUSCULOSKELETAL: Denies back pain, joint pain, or myalgia. NEUROLOGIC: Reports dizziness, lightheadedness, weakness. Denies focal weakness, headache, numbness. <SKY Temple Last Filed: 07/10/21 04:21> All systems reviewed & are unremarkable except as noted in HPI and below <SKY Temple Last Filed: 07/10/21 04:21> [facility] Past Medical History Medical History: Medical History (Updated 07/10/21 @ 03:37 by Domitila Banks PA-C) Cardiomyopathy due to hypertension, with heart failure Chronic obst
[2021-07-09] MEDS: ONDANSETRON INJ 4 MG/2 ML VIAL IV PUSH (18:14)
[2021-07-09] MEDS: SODIUM CHLORIDE 0.9% IV 1,000 ML 999 ML IV CONT ×3 (18:14→21:52)
--- NOTE | 2021-07-09 18:55 | PC.NURSE ---
Pt still unable to provide urine sample and states that he does not want to be cathed at this time
[2021-07-09 18:58] LABS: Lactic Acid Reflex 1.5 mmol/L (0.7-2.0)
[2021-07-09 20:15] LABS: Influenza A QL RT-PCR Negative (Negative); Influenza B QL RT-PCR Negative (Negative); SARS-CoV-2 RNA PCR Negative
[2021-07-09 22:40] LABS: Appearance Urine Clear (Clear); Bilirubin Urine 1+ (Negative); Blood Urine Negative (Negative); Color Urine Yellow (Yellow); Glucose Urine UA 2+ mg/dL (Negative); Ketones Urine Negative (Negative); Leukocyte Esterase Ur Negative LEU/UL (Negative); Nitrate Urine Negative (Negative); Protein Urine Trace mg/dL (Negative); Urobilinogen Urine 0.2 mg/dL (<2.0)
[2021-07-09 22:45] LABS: Hyaline Casts Urine 30-49 /lpf; Mucus Urine Few /lpf; RBC Urine 0-2 /hpf (0-2)
[2021-07-09 22:55] LABS: Add Urine Microscopic? YES
[2021-07-09] MEDS: SODIUM CHLORIDE 0.9% IV 500 ML 999 ML IV CONT (23:47)
--- NOTE | 2021-07-09 23:59 | PC.NURSE ---
[facility] DR REYES TO START DOPAMINE @ 5.
[2021-07-10] VITALS (50 sets, daily range): BP systolic 71–140; BP diastolic 49–101; PULSE 53–96; RESP 10–29; O2SAT 91–100
--- NOTE | 2021-07-10 00:03 | PC.NURSE ---
ALTON received from Dr. Gomez to start dopamine at 5mcg/kg/min. Medication started at this time.
[2021-07-10] MEDS: DOPamine 400 MG/D5W 250 ML 400 MG/250 ML BAG 21.3 MG IV CONT (00:15)
--- NOTE | 2021-07-10 00:50 | PC.NURSE ---
per EDP cardona pause dopamine and begin norepinephrine.
[2021-07-10] MEDS: NOREPINEPHRINE 8 MG/D5W 250 ML 8 MG/250 ML BAG 9.38 MG IV CONT (01:57)
== END 2021-07-10 05:40 | disposition short-term general hospital (02) ==
PROVIDERS: Emergency Medicine; Physician Assistant; Emergency Provider Emergency Medicine; PCP Family Medicine
DX: A41.9 Sepsis, unspecified organism (principal); R65.21 Severe sepsis with septic shock; C90.00 Multiple myeloma not having achieved remission; J18.9 Pneumonia, unspecified organism; Z20.822 Contact with and (suspected) exposure to COVID-19; E11.22 Type 2 diabetes mellitus with diabetic chronic kidney disease; I13.0 Hypertensive heart and chronic kidney disease with heart failure and stage 1 through stage 4 chronic kidney disease, or unspecified chronic kidney disease; N18.4 Chronic kidney disease, stage 4 (severe); I43 Cardiomyopathy in diseases classified elsewhere; I50.9 Heart failure, unspecified; E11.40 Type 2 diabetes mellitus with diabetic neuropathy, unspecified; E78.49 Other hyperlipidemia; Z79.899 Other long term (current) drug therapy; Z79.84 Long term (current) use of oral hypoglycemic drugs; Z79.4 Long term (current) use of insulin; Z86.718 Personal history of other venous thrombosis and embolism; Z87.891 Personal history of nicotine dependence; R94.31 Abnormal electrocardiogram [ECG] [EKG]
CPT/HCPCS: 36415; 36556; 71046; 80053; 81001; 83605; 85025; 85055; 85610; 85730; 87040; 87502; 93005; 96361; 96365; 96367; 96375; 99285; C1751; C9803; J0692; J0696; J1265; J2405; J3370; J7030; J7040; U0003; U0005

== ENCOUNTER 2021-07-20 17:18 | Outpatient (CLI) | payer MEDICARE, SELFPAY ==
[2021-07-20 17:33] LABS: Basophils Percent Auto 0.4 % (0.2-1.2); Eosinophils Absolute Auto 0.1 K/mm3 (0-0.3); Eosinophils Percent Auto 0.9 % (0-4.4); Hematocrit 44.9 % (42.0-52.0); Hemoglobin 14.4 g/dL (14.0-18.0); Immature Granulocyte Absolute 0.09 K/mm3 (0.00-0.031); Immature Granulocyte Percent A 1.2 % (0-0.5); Lymphocytes Absolute Auto 0.99 K/mm3 (0.9-3.2); Lymphocytes Percent Auto 13.4 % (18.3-44.2); Mean Corpuscular HGB Conc 32.1 g/dl (32-36); Mean Corpuscular Hemoglobin 27.3 pg (26-34); Mean Platelet Volume 11.9 fl (7.4-10.4); Monocytes Absolute Auto 0.7 K/mm3 (0.1-0.6); Monocytes Percent Auto 9.9 % (2.6-8.5); Neutrophils Absolute Auto 5.5 K/mm3 (1.3-6.7); Neutrophils Percent Auto 74.2 % (45.5-73.1); Platelet Count Result 177 k/mm3 (150-375); Red Blood Count 5.28 M/mm3 (4.6-6.20); White Blood Count 7.4 K/mm3 (4.5-10.0)
== END 2021-07-20 17:19 | disposition home or self-care (01) ==
PROVIDERS: PCP Family Medicine; Visit Provider Internal Medicine Medical Oncology
DX: C90.00 Multiple myeloma not having achieved remission (principal)
CPT/HCPCS: 36415; 85025

== ENCOUNTER 2021-08-01 17:52 | Outpatient (CLI) | payer MEDICARE, SELFPAY ==
[2021-08-01 18:11] LABS: Basophils Percent Auto 0.3 % (0.2-1.2); Eosinophils Absolute Auto 0.1 K/mm3 (0-0.3); Eosinophils Percent Auto 1.4 % (0-4.4); Hematocrit 46.3 % (42.0-52.0); Hemoglobin 14.5 g/dL (14.0-18.0); Immature Granulocyte Absolute 0.02 K/mm3 (0.00-0.031); Immature Granulocyte Percent A 0.3 % (0-0.5); Lymphocytes Absolute Auto 1.19 K/mm3 (0.9-3.2); Lymphocytes Percent Auto 18.9 % (18.3-44.2); Mean Corpuscular HGB Conc 31.3 g/dl (32-36); Mean Corpuscular Hemoglobin 27.1 pg (26-34); Mean Corpuscular Volume 86.5 fl (80-100); Mean Platelet Volume 10.6 fl (7.4-10.4); Monocytes Absolute Auto 0.7 K/mm3 (0.1-0.6); Monocytes Percent Auto 10.3 % (2.6-8.5); Neutrophils Absolute Auto 4.3 K/mm3 (1.3-6.7); Neutrophils Percent Auto 68.8 % (45.5-73.1); Platelet Count Result 208 k/mm3 (150-375); Red Blood Count 5.35 M/mm3 (4.6-6.20); Red Cell Distribution Width 17.2 % (11.5-14.5); White Blood Count 6.3 K/mm3 (4.5-10.0)
[2021-08-01 18:23] LABS: Alanine Aminotransferase 43 U/L (6-50); Alkaline Phosphatase 92 U/L (38-126); Anion Gap 6 mmol/L (8-16); Aspartate Amino Transferase 41 U/L (17-59); Blood Urea Nitrogen 27 mg/dL (9-20); Carbon Dioxide 28 mmol/L (22-30); Chloride 100 mmol/L (98-107); Estimated Glomerular Filt Rate 39; Glucose 157 mg/dL (65-110); Potassium 4.2 mmol/L (3.4-5.0); Sodium 134 mmol/L (137-145)
== END 2021-08-01 17:53 | disposition home or self-care (01) ==
LOC: ANHLAB 17:56
PROVIDERS: PCP Family Medicine; Visit Provider Family Medicine
DX: Z51.81 Encounter for therapeutic drug level monitoring (principal); Z79.899 Other long term (current) drug therapy; R65.21 Severe sepsis with septic shock
CPT/HCPCS: 36415; 80048; 80076; 85025

== ENCOUNTER 2021-08-13 08:56 | Outpatient (CLI) | payer MEDICARE, SELFPAY ==
[2021-08-13 09:34] LABS: Basophils Percent Auto 0.4 % (0.2-1.2); Eosinophils Absolute Auto 0.1 K/mm3 (0-0.3); Eosinophils Percent Auto 1.5 % (0-4.4); Hematocrit 46.3 % (42.0-52.0); Hemoglobin 14.8 g/dL (14.0-18.0); Immature Granulocyte Absolute 0.03 K/mm3 (0.00-0.031); Immature Granulocyte Percent A 0.4 % (0-0.5); Immature Platelet Fraction Pct 3.8 % (0.9-11.2); Lymphocytes Absolute Auto 1.04 K/mm3 (0.9-3.2); Lymphocytes Percent Auto 12.2 % (18.3-44.2); Mean Corpuscular Hemoglobin 27.2 pg (26-34); Mean Corpuscular Volume 85.1 fl (80-100); Mean Platelet Volume 10.6 fl (7.4-10.4); Monocytes Absolute Auto 0.7 K/mm3 (0.1-0.6); Monocytes Percent Auto 8.3 % (2.6-8.5); Neutrophils Absolute Auto 6.6 K/mm3 (1.3-6.7); Neutrophils Percent Auto 77.2 % (45.5-73.1); Platelet Count Result 148 k/mm3 (150-375); Red Blood Count 5.44 M/mm3 (4.6-6.20); Red Cell Distribution Width 16.7 % (11.5-14.5); White Blood Count 8.6 K/mm3 (4.5-10.0)
[2021-08-13 09:49] LABS: Alanine Aminotransferase 30 U/L (6-50); Albumin Level 4.2 g/dL (3.5-5.1); Alkaline Phosphatase 94 U/L (38-126); Anion Gap 7 mmol/L (8-16); Aspartate Amino Transferase 31 U/L (17-59); Bilirubin,Total 1.9 mg/dL (0.2-1.3); Blood Urea Nitrogen 26 mg/dL (9-20); Carbon Dioxide 24 mmol/L (22-30); Chloride 102 mmol/L (98-107); Estimated Glomerular Filt Rate 42; Glucose 150 mg/dL (65-110); Potassium 4.5 mmol/L (3.4-5.0); Sodium 133 mmol/L (137-145)
[2021-08-13 10:55] LABS: Immunoglobulin G 764 mg/dL (700-1600)
[2021-08-15 12:27] LABS: Kappa\\Lambda Light Chains 2.21 (0.26-1.65); Lambda Light Chain 17.7 mg/L (5.7-26.3)
[2021-08-16 14:08] LABS: Beta-2-Microglobulin 3.33 mg/L (<=2.51)
[2021-08-17 11:31] LABS: Albumin 3.6 g/dL (3.8-4.8); Alpha 1 Globulin 0.4 g/dL (0.2-0.3); Beta 1 Globulin 0.5 g/dL (0.4-0.6); Gamma Globulin 0.8 g/dL (0.8-1.7); Protein, Total 6.6 g/dL (6.1-8.1)
== END 2021-08-13 08:57 | disposition home or self-care (01) ==
PROVIDERS: PCP Family Medicine; Visit Provider Internal Medicine Medical Oncology
DX: C90.00 Multiple myeloma not having achieved remission (principal)
CPT/HCPCS: 36415; 80053; 82232; 82784; 83883; 84155; 84165; 85025; 85055

== ENCOUNTER 2021-08-15 13:30 | Outpatient (CLI) | payer MEDICARE, SELFPAY ==
--- NOTE | ~2021-08-15 | PE_ITS ---
EXAMINATION: PET_PETPSMAST_PT DATE: 08/15/2021 16:04 INDICATION: Prostate cancer TECHNIQUE: 8.862 mCi of pipflufolastat F-18 (18-F-DCFPyL) was administered i.v. Low dose computed to mography (CT) images were acquired from the base of the brain to the base of the brain to the proxima l thighs for attenuation correction and anatomic localization. Positron emission tomography (PET) belkys ges were acquired in the same distribution beginning 105 minutes after injection. Images including fu sed PET/CT images were reconstructed in axial, coronal, and sagittal planes. Automated exposure contr ol technique was employed. The dose-length product was 1206.80mGy-cm. COMPARISON: None FINDINGS: Head/neck: Typical pattern of symmetric physiologic increased activity in the lacrimal, parotid and submandibula r glands as well as along the mucosa of the nares, nasopharynx, oropharynx and hypopharynx. No pathol ogically enlarged cervical lymphadenopathy or suspicious foci of increased uptake in the visualized h ead or neck. Chest: Respiratory motion the lungs. Mild discoid atelectasis at the lingula, right middle and right lower l obes. No suspicious pulmonary nodules, pneumonia, pulmonary edema or pleural effusion. Calcified left hilar lymph nodes consistent with old granulomatous disease. Mild cardiomegaly. Atherosclerotic karena nary artery calcification and aortic valve calcification. No pericardial effusion. No pathologically enlarged thoracic lymphadenopathy. No suspicious foci of activity in the chest. Abdomen/pelvis/proximal thighs: Physiologic renal accumulation and excretion of activity in the kidneys, bladder and along portions o f ureters. Small focus of increased uptake at the inferior left posterolateral aspect of the prostate which appears to fall from the expected location of the prostatic urethra to suggest urinary activit y potentially related to reported history of prostate cancer. Normal degree and slightly heterogenous pattern of increased uptake throughout the liver and spleen without radiologic correlate or dominant PSMA avid lesion. Cholecystectomy clips at the gallbladder fossa. Scattered hepatic and splenic calc ific lesions consistent with old granulomatous disease. Pancreas and bilateral adrenal glands are nor mal. Moderate uptake scattered throughout the bowels with typical proximal duodenal and jejunal predo minance and without radiologic correlate, also likely physiologic. Infrarenal IVC filter. There is ca lcified atherosclerosis of the aorta and many of the other arteries. No other abnormal foci of incre ased uptake or pathologically enlarged lymphadenopathy in the abdomen, pelvis or proximal thighs. Musculoskeletal: Severe lumbar spondylosis with pedicle screws and radiolucent vertical rods for posterior spinal fusi on at L4-S1. Spinal stimulator at the left flank with leads extending along the posterior aspect of t he lower thoracic spine with lead tip at the level of T7. There are densely sclerotic bone lesions at the left sacral ala and left and right posterior iliac spines which are new since CT dated 03/30/2020. No associated PSMA activity to suggest metastatic disease. There are also linear lucent tracks withi n each of the sclerotic lesions suggesting possible iatrogenic etiology such as methyl methacrylate i njection. Some of the high attenuation material extends into the left sacroiliac joint space. Correla te with clinical/surgical history. No other suspicious lytic, blastic or PSMA avid bone lesions ident ified. Moderate bilateral glenohumeral osteoarthritis. IMPRESSION: 1. Small region of increased activity at the inferior left posterolateral aspect of the prostate whic h given the elevated PSA level raises suspicion for either new or recurrent prostate cancer. No lesio n suspicious for metastatic disease. 2. A few new sclerotic bone lesions at the left sacrum and bilateral posteri
== END 2021-08-15 13:31 | disposition home or self-care (01) ==
PROVIDERS: PCP Family Medicine; Visit Provider Urology
DX: C61 Malignant neoplasm of prostate (principal); Z98.1 Arthrodesis status; M47.817 Spondylosis without myelopathy or radiculopathy, lumbosacral region; I51.7 Cardiomegaly; I25.10 Atherosclerotic heart disease of native coronary artery without angina pectoris; I70.0 Atherosclerosis of aorta
CPT/HCPCS: 78815; A9595

== ENCOUNTER 2021-10-23 12:46 | Outpatient (CLI) | payer MEDICARE, SELFPAY ==
[2021-10-23 13:46] LABS: Basophils Percent Auto 0.5 % (0.2-1.2); Eosinophils Absolute Auto 0.2 K/mm3 (0-0.3); Eosinophils Percent Auto 2.2 % (0-4.4); Hematocrit 50.4 % (42.0-52.0); Hemoglobin 15.9 g/dL (14.0-18.0); Immature Granulocyte Absolute 0.03 K/mm3 (0.00-0.031); Immature Granulocyte Percent A 0.4 % (0-0.5); Lymphocytes Absolute Auto 1.29 K/mm3 (0.9-3.2); Lymphocytes Percent Auto 17.6 % (18.3-44.2); Mean Corpuscular HGB Conc 31.5 g/dl (32-36); Mean Corpuscular Hemoglobin 26.5 pg (26-34); Mean Corpuscular Volume 83.9 fl (80-100); Mean Platelet Volume 10.9 fl (7.4-10.4); Monocytes Absolute Auto 0.9 K/mm3 (0.1-0.6); Neutrophils Absolute Auto 4.9 K/mm3 (1.3-6.7); Neutrophils Percent Auto 67.3 % (45.5-73.1); Platelet Count Result 222 k/mm3 (150-375); Red Blood Count 6.01 M/mm3 (4.6-6.20); Red Cell Distribution Width 17.6 % (11.5-14.5); White Blood Count 7.3 K/mm3 (4.5-10.0)
[2021-10-23 13:58] LABS: Alanine Aminotransferase 36 U/L (6-50); Albumin Level 4.5 g/dL (3.5-5.1); Alkaline Phosphatase 105 U/L (38-126); Anion Gap 8 mmol/L (8-16); Aspartate Amino Transferase 37 U/L (17-59); Bilirubin,Total 1.9 mg/dL (0.2-1.3); Blood Urea Nitrogen 34 mg/dL (9-20); Calcium 9.3 mg/dL (8.4-10.2); Carbon Dioxide 25 mmol/L (22-30); Chloride 98 mmol/L (98-107); Estimated Glomerular Filt Rate 34; Glucose 120 mg/dL (65-110); Potassium 4.8 mmol/L (3.4-5.0); Sodium 131 mmol/L (137-145)
[2021-10-23 14:05] LABS: Immunoglobulin A 315 mg/dL (70-400)
[2021-10-25 20:06] LABS: Albumin 3.7 g/dL (3.8-4.8); Alpha 1 Globulin 0.4 g/dL (0.2-0.3); Alpha 2 Globulin 1.1 g/dL (0.5-0.9); Beta 1 Globulin 0.5 g/dL (0.4-0.6); Gamma Globulin 0.8 g/dL (0.8-1.7)
[2021-10-27 04:31] LABS: Kappa\\Lambda Light Chains 2.21 (0.26-1.65); Lambda Light Chain 20.6 mg/L (5.7-26.3)
[2021-10-27 10:41] LABS: Beta-2-Microglobulin 4.14 mg/L (<=2.51)
== END 2021-10-23 12:47 | disposition home or self-care (01) ==
LOC: ANHLAB 12:50
PROVIDERS: PCP Family Medicine; Visit Provider Internal Medicine Medical Oncology
DX: C90.00 Multiple myeloma not having achieved remission (principal)
CPT/HCPCS: 36415; 80053; 82232; 82784; 83883; 84155; 84165; 85025

== ENCOUNTER 2021-11-02 16:15 | Outpatient (CLI) | payer MEDICARE, SELFPAY ==
[2021-11-02 16:54] LABS: Hematocrit 48.5 % (42.0-52.0); Hemoglobin 15.5 g/dL (14.0-18.0); Mean Corpuscular Volume 84.3 fl (80-100); Mean Platelet Volume 10.1 fl (7.4-10.4); Platelet Count Result 175 k/mm3 (150-375); Red Blood Count 5.75 M/mm3 (4.6-6.20); Red Cell Distribution Width 17.2 % (11.5-14.5); White Blood Count 7.7 K/mm3 (4.5-10.0)
[2021-11-02 17:01] LABS: Albumin Level 4.2 g/dL (3.5-5.1); Anion Gap 11 mmol/L (8-16); Blood Urea Nitrogen 34 mg/dL (9-20); Calcium 9.1 mg/dL (8.4-10.2); Carbon Dioxide 25 mmol/L (22-30); Chloride 99 mmol/L (98-107); Estimated Glomerular Filt Rate 37; Glucose 111 mg/dL (65-110); Phosphorus 3.7 mg/dL (2.5-4.5); Potassium 4.5 mmol/L (3.4-5.0); Sodium 135 mmol/L (137-145)
[2021-11-02 17:10] LABS: Creatinine Urine 93.3 mg/dL; Total Protein Urine Random 10 mg/dL; Ur Ttl Prot Creatinine Ratio 0.11 mg/mg (0-0.20)
[2021-11-02 17:13] LABS: Parathyroid Intact 111.3 pg/mL (7.5-53.5)
== END 2021-11-02 16:16 | disposition home or self-care (01) ==
LOC: ANHLAB 16:19
PROVIDERS: PCP Family Medicine; Visit Provider Internal Medicine Nephrology
DX: N18.32 Chronic kidney disease, stage 3b (principal)
CPT/HCPCS: 36415; 80069; 82570; 83970; 84156; 85027

== ENCOUNTER 2021-11-16 00:16 | Day surgery (SDC) | payer MEDICARE, SELFPAY ==
[2021-11-12 11:27] VITALS: BMI 34.0
[2021-11-16 09:18] VITALS: BP 135/81; PULSE 80; RESP 20; TEMP 36.3; O2SAT 98; BMI 34.0
[2021-11-16] MEDS: LACTATED RINGERS 1,000 ML 150 ML IV CONT (09:36)
[2021-11-16 09:38] LABS: Glucose Point of Care 134 mg/dl (65-105)
--- NOTE | 2021-11-16 09:48 | WPDANESEPPF ---
Anes - Initial Pre Proc Eval Procedure: Operation Date: 11/16/21 10:15 Proposed Procedures p Esophagogastroduodenoscopy & Colonoscopy - Jose Antonio Ferguson MD Date/Time: 11/16/21 09:48 Surgeon: Jose Antonio Ferguson MD Pre Op Diagnosis: abdominal pain Patient Data Age: 76 Gender: M Height: 1.78 m Weight: 107.5 kg Last Vital Signs Temp 97.4 F L 11/16/21 09:18 Pulse 80 11/16/21 09:18 Resp 20 11/16/21 09:18 BP 135/81 11/16/21 09:18 Pulse Ox 98 11/16/21 09:18 O2 Del Method Room Air 11/16/21 09:18 Allergies Allergy/AdvReac Type Severity Reaction Status Date / Time lenalidomide [From Revlimid] Allergy Intermediate Hives Verified 11/16/21 09:18 niacin Allergy Intermediate Hives Verified 11/16/21 09:18 NSAIDS (Non-Steroidal Allergy Mild Unknown Verified 11/16/21 09:18 Anti-Inflamma Home Medications Medication Instructions Recorded Confirmed Type atorvastatin 80 mg tablet 80 mg PO DAILY #90 tabs 02/09/19 11/16/21 Rx pen needle, diabetic 32 gauge x #100 ea 02/09/19 Rx 5/32 (BD Ultra-Fine Haven Pen Needle) amiodarone 200 mg tablet 200 mg PO DAILY 04/22/19 11/16/21 History cholecalciferol (vitamin D3) 50 2,000 unit PO BID 04/22/19 11/16/21 History mcg (2,000 unit) tablet ezetimibe 10 mg tablet (Zetia) 10 mg PO DAILY 04/22/19 11/16/21 History furosemide 20 mg tablet (Lasix) 20 mg PO EVERY OTHER DAY 04/22/19 11/16/21 History ixazomib 4 mg capsule (Ninlaro) See Rx Instructions PO .COMPLEX 04/22/19 11/16/21 History nitroglycerin 0.4 mg sublingual See Rx Instructions .Route .COMPLEX 04/22/19 11/16/21 History tablet (Nitrostat) spironolactone 25 mg tablet 25 mg PO DAILY 04/22/19 11/16/21 History apixaban 5 mg tablet (Eliquis) 5 mg PO BID 07/09/21 11/16/21 History dulaglutide 1.5 mg/0.5 mL 3 mg subcut WEEKLY 07/09/21 11/16/21 History subcutaneous pen injector (Trulicity) empagliflozin 25 mg tablet 25 mg PO DAILY 07/09/21 11/16/21 History (Jardiance) gabapentin 300 mg capsule 300 mg PO QPM 07/09/21 11/16/21 History gabapentin 800 mg tablet 800 mg PO QAM 07/09/21 11/16/21 History oxycodone-acetaminophen 5 mg-325 1 tablet PO Q6H PRN Pain 07/09/21 11/16/21 History mg tablet insulin glargine U-300 conc 300 40 unit subcut DAILY 10/03/21 11/16/21 History unit/mL (1.5 mL) subcutaneous pen (Toujeo SoloStar U-300 Insulin) insulin lispro 100 unit/mL 12 unit subcut TIDWMEAL 11/12/21 11/16/21 History subcutaneous pen (Humalog KwikPen (U-100) Insulin) Laboratory Tests 11/16/21 09:33 POC Capillary Glucose 134 mg/dl H mg/dl (65-105) Patient hx anesthesia problems: none Family hx anesthesia problems: none Results Review: All pre-operative results and documents have been reviewed as part of the pre-operative evaluation. [facility] Past Medical History Medical History (Updated 10/03/21 @ 11:07 by Jose Antonio Ferguson MD) Cardiomyopathy due to hypertension, with heart failure Chronic obstructive pulmonary disease, unspecified CKD (chronic kidney disease) stage 4, GFR 15-29 ml/min Essential (primary) hypertension H/O deep venous thrombosis Multiple myeloma Other hyperlipidemia Type 2 diabetes mellitus with diabetic neuropathy, unspecified Surgical History Surgical History (Updated 10/03/21 @ 10:33 by Fani Clayton CMA) History of bilateral carpal tunnel release History of colon resection History of colostomy reversal Hx laparoscopic cholecystectomy Hx of angioplasty Hx of cardiac cath Hx of tonsillectomy Hx of total knee replacement Family History Family History Father Acute myocardial infarction, Onset Age: 72 Mother Acute myocardial infarction, Onset Age: 83 Social History Social History (Updated 10/03/21 @ 10:33 by Fani Clayton, [facility]) Smoking packs per day: 1.5 Smoking cigarettes per day: 30.0 Years smoked: 25 Smoking pack-years: 37.50
--- NOTE | 2021-11-16 09:59 | PM.IMHP ---
H&P: HPI History of Present Illness Date/Time: 11/16/21 09:59 Chief Complaint: Abdominal pain. Narrative: This is a 76-year-old white male patient presents for colonoscopy an EGD because of abdominal pain. Patient reports suprapubic abdominal pain that appears to improve with famotidine. He had a brief episode of diarrhea that is now improved. Current weight appetite bowel movements are normal. He recently was diagnosed with multiple myeloma is undergoing therapy. He has a distant history of prostate carcinoma treated that included radiation therapy. GI endoscopy is recommended because of his abdominal pain. Review of Systems Review of Systems: Review of systems noncontributory. [facility] Past Medical History Medical History (Updated 11/16/21 @ 10:01 by Jose Antonio Ferguson MD) Cardiomyopathy due to hypertension, with heart failure Chronic obstructive pulmonary disease, unspecified CKD (chronic kidney disease) stage 4, GFR 15-29 ml/min Essential (primary) hypertension H/O deep venous thrombosis Multiple myeloma Other hyperlipidemia Type 2 diabetes mellitus with diabetic neuropathy, unspecified Surgical History Surgical History (Updated 10/03/21 @ 10:33 by Fani Clayton CMA) History of bilateral carpal tunnel release History of colon resection History of colostomy reversal Hx laparoscopic cholecystectomy Hx of angioplasty Hx of cardiac cath Hx of tonsillectomy Hx of total knee replacement Family History Family History Father Acute myocardial infarction, Onset Age: 72 Mother Acute myocardial infarction, Onset Age: 83 Social History Social History (Updated 10/03/21 @ 10:33 by Fani Clayton [facility]) Smoking packs per day: 1.5 Smoking cigarettes per day: 30.0 Years smoked: 25 Smoking pack-years: 37.50 Smoking status: Former smoker Tobacco type: cigarettes and cigars Smoking end date: 02/24/89 Alcohol intake: current Alcohol use details: social Substance use: never Substance use type: does not use Living arrangements: with family Spiritual care concerns: No Meds Home Medications and Allergies Home Medications Medication Instructions Recorded Confirmed Type atorvastatin 80 mg tablet 80 mg PO DAILY #90 tabs 02/09/19 11/16/21 Rx pen needle, diabetic 32 gauge x #100 ea 02/09/19 Rx 5/32 (BD Ultra-Fine Haven Pen Needle) amiodarone 200 mg tablet 200 mg PO DAILY 04/22/19 11/16/21 History cholecalciferol (vitamin D3) 50 2,000 unit PO BID 04/22/19 11/16/21 History mcg (2,000 unit) tablet ezetimibe 10 mg tablet (Zetia) 10 mg PO DAILY 04/22/19 11/16/21 History furosemide 20 mg tablet (Lasix) 20 mg PO EVERY OTHER DAY 04/22/19 11/16/21 History ixazomib 4 mg capsule (Ninlaro) See Rx Instructions PO .COMPLEX 04/22/19 11/16/21 History nitroglycerin 0.4 mg sublingual See Rx Instructions .Route .COMPLEX 04/22/19 11/16/21 History tablet (Nitrostat) spironolactone 25 mg tablet 25 mg PO DAILY 04/22/19 11/16/21 History apixaban 5 mg tablet (Eliquis) 5 mg PO BID 07/09/21 11/16/21 History dulaglutide 1.5 mg/0.5 mL 3 mg subcut WEEKLY 07/09/21 11/16/21 History subcutaneous pen injector (Trulicity) empagliflozin 25 mg tablet 25 mg PO DAILY 07/09/21 11/16/21 History (Jardiance) gabapentin 300 mg capsule 300 mg PO QPM 07/09/21 11/16/21 History gabapentin 800 mg tablet 800 mg PO QAM 07/09/21 11/16/21 History oxycodone-acetaminophen 5 mg-325 1 tablet PO Q6H PRN Pain 07/09/21 11/16/21 History mg tablet insulin glargine U-300 conc 300 40 unit subcut DAILY 10/03/21 11/16/21 History unit/mL (1.5 mL) subcutaneous pen (Toujeo SoloStar U-300 Insulin) insulin lispro 100 unit/mL 12 unit subcut TIDWMEAL 11/12/21 11/16/21 History subcutaneous pen (Humalog KwikPen (U-100) Insulin) Allergies Allergy/AdvReac Type Severity Reaction Status Date / Time lenalidomide [From Rev
[2021-11-16 10:29] VITALS: BP 106/55; PULSE 62; RESP 22; O2SAT 100
[2021-11-16 10:39] VITALS: BP 106/52; PULSE 60; RESP 20; O2SAT 100
[2021-11-16 10:49] VITALS: BP 108/50; PULSE 62; RESP 20; O2SAT 100
== END 2021-11-16 11:03 | disposition home or self-care (01) ==
PROVIDERS: PCP Family Medicine; Visit Provider Internal Medicine Gastroenterology
PROC: 0DJ08ZZ Inspection of Upper Intestinal Tract, Via Natural or Artificial Opening Endoscopic (ICD-10-PCS; CPT 43235; principal; 2021-11-16 10:15)
DX: Z12.11 Encounter for screening for malignant neoplasm of colon (principal); R10.9 Unspecified abdominal pain; K64.8 Other hemorrhoids; K57.30 Diverticulosis of large intestine without perforation or abscess without bleeding; R10.84 Generalized abdominal pain; R19.7 Diarrhea, unspecified; I13.0 Hypertensive heart and chronic kidney disease with heart failure and stage 1 through stage 4 chronic kidney disease, or unspecified chronic kidney disease; C90.00 Multiple myeloma not having achieved remission; E11.22 Type 2 diabetes mellitus with diabetic chronic kidney disease; N18.4 Chronic kidney disease, stage 4 (severe); Z85.46 Personal history of malignant neoplasm of prostate; Z92.3 Personal history of irradiation; Z85.820 Personal history of malignant melanoma of skin; Z86.718 Personal history of other venous thrombosis and embolism; Z90.49 Acquired absence of other specified parts of digestive tract; Z87.891 Personal history of nicotine dependence; Z79.4 Long term (current) use of insulin; Z79.01 Long term (current) use of anticoagulants; E66.9 Obesity, unspecified; Z68.34 Body mass index [BMI] 34.0-34.9, adult
CPT/HCPCS: 43239; G0121; 82948; 87081; J2704; J7120

== ENCOUNTER 2021-12-28 16:35 | Outpatient (CLI) | payer MEDICARE, SELFPAY ==
[2021-12-28 16:55] LABS: Basophils Percent Auto 0.2 % (0.2-1.2); Eosinophils Absolute Auto 0.1 K/mm3 (0-0.3); Eosinophils Percent Auto 0.8 % (0-4.4); Hematocrit 47.6 % (42.0-52.0); Hemoglobin 14.9 g/dL (14.0-18.0); Immature Granulocyte Absolute 0.05 K/mm3 (0.00-0.031); Immature Granulocyte Percent A 0.8 % (0-0.5); Lymphocytes Absolute Auto 2.61 K/mm3 (0.9-3.2); Mean Corpuscular HGB Conc 31.3 g/dl (32-36); Mean Corpuscular Hemoglobin 26.2 pg (26-34); Mean Corpuscular Volume 83.7 fl (80-100); Mean Platelet Volume 11.9 fl (7.4-10.4); Monocytes Absolute Auto 0.7 K/mm3 (0.1-0.6); Monocytes Percent Auto 11.3 % (2.6-8.5); Neutrophils Absolute Auto 3.1 K/mm3 (1.3-6.7); Neutrophils Percent Auto 46.9 % (45.5-73.1); Platelet Count Result 144 k/mm3 (150-375); Red Blood Count 5.69 M/mm3 (4.6-6.20); White Blood Count 6.5 K/mm3 (4.5-10.0)
[2021-12-28 17:05] LABS: Alanine Aminotransferase 40 U/L (6-50); Albumin Level 4.1 g/dL (3.5-5.1); Alkaline Phosphatase 110 U/L (38-126); Anion Gap 11 mmol/L (8-16); Aspartate Amino Transferase 40 U/L (17-59); Bilirubin,Total 1.3 mg/dL (0.2-1.3); Blood Urea Nitrogen 28 mg/dL (9-20); Calcium 8.7 mg/dL (8.4-10.2); Carbon Dioxide 23 mmol/L (22-30); Chloride 104 mmol/L (98-107); Estimated Glomerular Filt Rate 34; Glucose 166 mg/dL (65-110); Potassium 4.5 mmol/L (3.4-5.0); Sodium 138 mmol/L (137-145)
[2021-12-28 17:12] LABS: Immunoglobulin A 293 mg/dL (70-400)
[2021-12-31 15:57] LABS: Kappa\\Lambda Light Chains 2.25 (0.26-1.65)
[2021-12-31 17:09] LABS: Albumin 3.2 g/dL (3.8-4.8); Alpha 1 Globulin 0.4 g/dL (0.2-0.3); Alpha 2 Globulin 1.1 g/dL (0.5-0.9); Beta 1 Globulin 0.5 g/dL (0.4-0.6); Gamma Globulin 0.8 g/dL (0.8-1.7); Protein, Total 6.4 g/dL (6.1-8.1)
[2022-01-02 10:14] LABS: Beta-2-Microglobulin 4.92 mg/L (<=2.51)
== END 2021-12-28 16:36 | disposition home or self-care (01) ==
PROVIDERS: PCP Family Medicine; Visit Provider Internal Medicine Medical Oncology
DX: C90.00 Multiple myeloma not having achieved remission (principal)
CPT/HCPCS: 36415; 80053; 82232; 82784; 83883; 84155; 84165; 85025

== ENCOUNTER 2022-01-01 14:00 | Outpatient (CLI) | payer MEDICARE, SELFPAY ==
--- NOTE | ~2022-01-01 | CT_ITS ---
EXAMINATION: CT chest abdomen pelvis wo con DATE: 01/01/2022 14:26 INDICATION: Multiple myeloma. TECHNIQUE: Computed tomography (CT) of the chest, abdomen, and pelvis was performed without intraveno us contrast. Automated exposure control and iterative reconstruction technique were employed. The dos e-length product was 1536.80 mGy-cm. COMPARISON: Pelvis CT 03/30/2020, abdomen CT 02/06/2019, 09/18/12 FINDINGS: CHEST CT: There is mild emphysema. There is mild atelectasis bilaterally. Calcified pulmonary nodules and calci fied hilar and mediastinal lymph nodes are consistent with old granulomatous disease. No pleural effu kartik. The heart size is normal. There are coronary artery calcifications. No pericardial effusion. Th ere are calcifications of aortic valve. There is bilateral gynecomastia. There is mild chronic anteri or wedging of multiple vertebral bodies in thoracic and lumbar spine. There is severe thoracic spondy losis. ABDOMEN/PELVIS CT: Calcifications in the liver and spleen are consistent with old granulomatous disease. There are murray es of cholecystectomy. The common duct measures 12 mm, which is chronic and likely not clinically sig nificant given the recent normal liver function tests. The pancreas and adrenal glands are normal. Th ere are cysts in the kidneys measuring up to 2.1 cm on the right. There is a filter in the inferior v blanca cava. There is calcified atherosclerosis of the aorta and many of the other arteries. There is di ffuse bladder wall thickening, likely secondary to chronic outlet obstruction from the mildly enlarge d prostate. There are bilateral inguinal hernias containing fat. There is an anastomosis in the sigmo id colon. There is diverticulosis of the colon without evidence of diverticulitis. The appendix is no rmal. There are no pathologically enlarged lymph nodes. There is no free intraperitoneal fluid. Epidu ral electrodes are noted. There are changes of posterior fusion procedure from L4 to S1. There is sev ere lumbar spondylosis. IMPRESSION: 1. No specific evidence of multiple myeloma. Reviewed, dictated and finalized at location A. ORT STATION SUPERVISOR
== END 2022-01-01 14:01 | disposition home or self-care (01) ==
LOC: ANHIMG 14:02
PROVIDERS: PCP Family Medicine; Visit Provider Internal Medicine Medical Oncology
DX: C90.00 Multiple myeloma not having achieved remission (principal)
CPT/HCPCS: 71250; 74176

== ENCOUNTER 2022-01-30 13:51 | Outpatient (CLI) | payer MEDICARE, SELFPAY ==
--- NOTE | 2022-01-30 | ECG_ITS ---
Measurements Intervals [place] Rate: 60 P: 44 OK: 288 QRS: 48 QRSD: 112 T: -8 QT: 499 QTc: 499 Interpretive Statements SINUS RHYTHM WITH FIRST DEGREE AV BLOCK LOW QRS VOLTAGE IN PRECORDIAL LEADS [QRS DEFLECTION < 1.0 mV IN CHEST LEADS] CANNOT RULE OUT SEPTAL MYOCARDIAL INFARCTION , OF INDETERMINATE AGE [40+ ms Q WAVE IN V1/V2] COMPARED TO ECG 07/09/2021 17:00:32 FIRST DEGREE AV BLOCK NOW PRESENT Electronically Signed On 01-30-2022 15:19:35 HUNTER GUIDE by Fuad Pineda M.D.
[2022-01-30 15:01] LABS: Basophils Percent Auto 0.4 % (0.2-1.2); Eosinophils Absolute Auto 0.1 K/mm3 (0-0.3); Eosinophils Percent Auto 0.9 % (0-4.4); Hematocrit 47.6 % (42.0-52.0); Hemoglobin 15.1 g/dL (14.0-18.0); Immature Granulocyte Absolute 0.03 K/mm3 (0.00-0.031); Immature Granulocyte Percent A 0.4 % (0-0.5); Immature Platelet Fraction Pct 7.9 % (0.9-11.2); Lymphocytes Absolute Auto 2.03 K/mm3 (0.9-3.2); Lymphocytes Percent Auto 27.3 % (18.3-44.2); Mean Corpuscular HGB Conc 31.7 g/dl (32-36); Mean Corpuscular Hemoglobin 26.1 pg (26-34); Mean Corpuscular Volume 82.4 fl (80-100); Mean Platelet Volume 11.5 fl (7.4-10.4); Monocytes Absolute Auto 0.9 K/mm3 (0.1-0.6); Monocytes Percent Auto 11.7 % (2.6-8.5); Neutrophils Absolute Auto 4.4 K/mm3 (1.3-6.7); Neutrophils Percent Auto 59.3 % (45.5-73.1); Platelet Count Result 152 k/mm3 (150-375); Red Blood Count 5.78 M/mm3 (4.6-6.20); Red Cell Distribution Width 18.7 % (11.5-14.5); White Blood Count 7.4 K/mm3 (4.5-10.0)
[2022-01-30 15:06] LABS: Appearance Urine Clear (Clear); Bilirubin Urine Negative (Negative); Blood Urine Negative (Negative); Color Urine Yellow (Yellow); Glucose Urine UA 2+ mg/dL (Negative); Ketones Urine Negative (Negative); Leukocyte Esterase Ur Negative LEU/UL (Negative); Nitrate Urine Negative (Negative); Protein Urine Negative (Negative); Specific Grav Ur 1.015 (1.001-1.035); Urobilinogen Urine 0.2 mg/dL (<2.0)
[2022-01-30 15:10] LABS: Alanine Aminotransferase 43 U/L (6-50); Alkaline Phosphatase 105 U/L (38-126); Anion Gap 7 mmol/L (8-16); Aspartate Amino Transferase 51 U/L (17-59); Bilirubin,Total 1.5 mg/dL (0.2-1.3); Blood Urea Nitrogen 34 mg/dL (9-20); Calcium 8.9 mg/dL (8.4-10.2); Carbon Dioxide 25 mmol/L (22-30); Chloride 105 mmol/L (98-107); Estimated Glomerular Filt Rate 37; Glucose 109 mg/dL (65-110); Potassium 4.2 mmol/L (3.4-5.0); Sodium 137 mmol/L (137-145)
[2022-01-30 15:23] LABS: Mucus Urine Rare /lpf; RBC Urine 0-2 /hpf (0-2); Squamous Epithelial Cell Urine Rare /hpf (Few); WBC Urine 0-3 /hpf
[2022-01-30 15:48] LABS: Add Urine Microscopic? YES
== END 2022-01-30 13:52 | disposition home or self-care (01) ==
PROVIDERS: PCP Family Medicine
DX: M96.1 Postlaminectomy syndrome, not elsewhere classified (principal); R94.31 Abnormal electrocardiogram [ECG] [EKG]
CPT/HCPCS: 36415; 80053; 81001; 85025; 85055; 93005

== ENCOUNTER 2022-03-01 11:19 | Outpatient (CLI) | payer MEDICARE, SELFPAY ==
[2022-03-01 11:45] LABS: Basophils Percent Auto 0.3 % (0.2-1.2); Eosinophils Absolute Auto 0.1 K/mm3 (0-0.3); Eosinophils Percent Auto 0.9 % (0-4.4); Hemoglobin 15.9 g/dL (14.0-18.0); Immature Granulocyte Absolute 0.03 K/mm3 (0.00-0.031); Immature Granulocyte Percent A 0.4 % (0-0.5); Lymphocytes Absolute Auto 1.76 K/mm3 (0.9-3.2); Lymphocytes Percent Auto 25.3 % (18.3-44.2); Mean Corpuscular HGB Conc 33.1 g/dl (32-36); Mean Corpuscular Hemoglobin 26.2 pg (26-34); Mean Corpuscular Volume 79.2 fl (80-100); Mean Platelet Volume 11.5 fl (7.4-10.4); Monocytes Absolute Auto 0.7 K/mm3 (0.1-0.6); Monocytes Percent Auto 9.6 % (2.6-8.5); Neutrophils Absolute Auto 4.4 K/mm3 (1.3-6.7); Neutrophils Percent Auto 63.5 % (45.5-73.1); Platelet Count Result 170 k/mm3 (150-375); Red Blood Count 6.06 M/mm3 (4.6-6.20); Red Cell Distribution Width 19.1 % (11.5-14.5)
[2022-03-01 11:58] LABS: Alanine Aminotransferase 44 U/L (6-50); Albumin Level 4.3 g/dL (3.5-5.1); Alkaline Phosphatase 115 U/L (38-126); Anion Gap 6 mmol/L (8-16); Aspartate Amino Transferase 44 U/L (17-59); Bilirubin,Total 1.8 mg/dL (0.2-1.3); Blood Urea Nitrogen 45 mg/dL (9-20); Calcium 9.7 mg/dL (8.4-10.2); Carbon Dioxide 26 mmol/L (22-30); Chloride 103 mmol/L (98-107); Estimated Glomerular Filt Rate 31; Glucose 145 mg/dL (65-110); Potassium 5.1 mmol/L (3.4-5.0); Sodium 135 mmol/L (137-145)
[2022-03-01 12:05] LABS: Immunoglobulin A 290 mg/dL (70-400)
[2022-03-04 17:37] LABS: Albumin 3.7 g/dL (3.8-4.8); Alpha 1 Globulin 0.4 g/dL (0.2-0.3); Alpha 2 Globulin 1.1 g/dL (0.5-0.9); Beta 1 Globulin 0.5 g/dL (0.4-0.6); Gamma Globulin 0.8 g/dL (0.8-1.7); Protein, Total 6.9 g/dL (6.1-8.1)
[2022-03-05 09:47] LABS: Beta-2-Microglobulin 4.04 mg/L (<=2.51)
[2022-03-05 12:19] LABS: Kappa\\Lambda Light Chains 2.59 (0.26-1.65); Lambda Light Chain 19.4 mg/L (5.7-26.3)
== END 2022-03-01 11:20 | disposition home or self-care (01) ==
LOC: ANHLAB 11:22
PROVIDERS: PCP Family Medicine; Visit Provider Internal Medicine Medical Oncology
DX: C90.00 Multiple myeloma not having achieved remission (principal)
CPT/HCPCS: 36415; 80053; 82232; 82784; 83883; 84155; 84165; 85025

== ENCOUNTER 2022-03-13 14:59 | Outpatient (CLI) | payer MEDICARE, SELFPAY ==
[2022-03-13 15:50] LABS: Anion Gap 8 mmol/L (8-16); Blood Urea Nitrogen 38 mg/dL (9-20); Calcium 9.1 mg/dL (8.4-10.2); Carbon Dioxide 27 mmol/L (22-30); Chloride 99 mmol/L (98-107); Estimated Glomerular Filt Rate 31; Glucose 185 mg/dL (65-110); Potassium 4.6 mmol/L (3.4-5.0); Sodium 134 mmol/L (137-145)
[2022-03-15 17:34] LABS: Albumin 3.6 g/dL (3.8-4.8); Alpha 1 Globulin 0.3 g/dL (0.2-0.3); Beta 1 Globulin 0.5 g/dL (0.4-0.6); Gamma Globulin 0.8 g/dL (0.8-1.7); Protein, Total 6.6 g/dL (6.1-8.1)
== END 2022-03-13 15:00 | disposition home or self-care (01) ==
PROVIDERS: PCP Family Medicine; Visit Provider Internal Medicine Medical Oncology
DX: C90.00 Multiple myeloma not having achieved remission (principal)
CPT/HCPCS: 36415; 80048; 84155; 84165

== ENCOUNTER 2022-04-12 08:09 | Outpatient (CLI) | payer MEDICARE, SELFPAY ==
--- NOTE | ~2022-04-12 | NM_ITS ---
EXAMINATION: NM bone scan whole body DATE: 04/12/2022 11:25 INDICATION: Prostate cancer TECHNIQUE: 23.4 mCi Tc-99m HDP was administered intravenously. Delayed whole-body scintigrams were o btained. COMPARISON: Bone scan dated 09/21/2012 and skeletal survey dated 04/12/2016 FINDINGS: Photopenic defects corresponding to bilateral total knee arthroplasties. Similar pattern of likely de generative joint centered uptake at the bilateral feet,, elbows, hands and wrists, acromioclavicular and sternoclavicular joints. New focus of likely degenerative joint centered uptake at the medial lef t ankle. A few small foci of mild uptake corresponding to severe facet and degenerative disc disease in the cervical spine. Mild likely degenerative disc centered uptake with corresponding severe disc h eight loss and degenerative endplate changes extending horizontally across the L3-L4 disc space and a t the right side of the L1-L2 and L2-L3 disc spaces. No other suspicious foci of abnormal bone uptake to suggest metastatic disease. IMPRESSION: 1. Slight progression in typical distribution of scattered likely degenerative joint centered uptake. No lesions suspicious for metastatic disease. Reviewed, dictated and finalized at location A. OR ONLINE MARKETING MANAGER
== END 2022-04-12 08:10 | disposition home or self-care (01) ==
LOC: ANHIMG 08:12
PROVIDERS: PCP Family Medicine; Visit Provider Urology
DX: C61 Malignant neoplasm of prostate (principal)
CPT/HCPCS: 78306; A9503

== ENCOUNTER 2022-04-29 16:37 | Outpatient (CLI) | payer MEDICARE, SELFPAY ==
[2022-04-29 18:25] LABS: Alanine Aminotransferase 66 U/L (6-50); Albumin Level 4.1 g/dL (3.5-5.1); Alkaline Phosphatase 88 U/L (38-126); Anion Gap 8 mmol/L (8-16); Aspartate Amino Transferase 62 U/L (17-59); Blood Urea Nitrogen 36 mg/dL (9-20); Calcium 8.9 mg/dL (8.4-10.2); Carbon Dioxide 24 mmol/L (22-30); Chloride 101 mmol/L (98-107); Estimated Glomerular Filt Rate 32; Glucose 88 mg/dL (65-110); Potassium 4.4 mmol/L (3.4-5.0); Sodium 133 mmol/L (137-145)
[2022-04-29 18:30] LABS: Immunoglobulin A 226 mg/dL (70-400)
[2022-05-02 10:33] LABS: Beta-2-Microglobulin 4.37 mg/L (<=2.51)
[2022-05-02 21:23] LABS: Kappa\\Lambda Light Chains 2.72 (0.26-1.65); Lambda Light Chain 18.4 mg/L (5.7-26.3)
== END 2022-04-29 16:38 | disposition home or self-care (01) ==
PROVIDERS: PCP Family Medicine; Visit Provider Internal Medicine Medical Oncology
DX: C90.00 Multiple myeloma not having achieved remission (principal)
CPT/HCPCS: 36415; 80053; 82232; 82784; 83883

== ENCOUNTER 2022-05-03 11:34 | Outpatient (CLI) | payer MEDICARE, SELFPAY ==
[2022-05-03 12:06] LABS: Hematocrit 48.3 % (42.0-52.0); Mean Corpuscular HGB Conc 31.1 g/dl (32-36); Mean Corpuscular Hemoglobin 26.2 pg (26-34); Mean Corpuscular Volume 84.3 fl (80-100); Mean Platelet Volume 11.6 fl (7.4-10.4); Platelet Count Result 202 k/mm3 (150-375); Red Blood Count 5.73 M/mm3 (4.6-6.20); Red Cell Distribution Width 19.1 % (11.5-14.5); White Blood Count 6.2 K/mm3 (4.5-10.0)
[2022-05-03 12:13] LABS: Creatinine Urine 160.9 mg/dL; Total Protein Urine Random 23 mg/dL; Ur Ttl Prot Creatinine Ratio 0.14 mg/mg (0-0.20)
[2022-05-03 12:16] LABS: Albumin Level 4.1 g/dL (3.5-5.1); Anion Gap 5 mmol/L (8-16); Blood Urea Nitrogen 30 mg/dL (9-20); Calcium 9.1 mg/dL (8.4-10.2); Carbon Dioxide 26 mmol/L (22-30); Chloride 103 mmol/L (98-107); Estimated Glomerular Filt Rate 39; Glucose 103 mg/dL (65-110); Phosphorus 3.3 mg/dL (2.5-4.5); Potassium 4.7 mmol/L (3.4-5.0); Sodium 134 mmol/L (137-145)
[2022-05-03 12:28] LABS: Parathyroid Intact 166.6 pg/mL (7.5-53.5)
[2022-05-03 12:46] LABS: Thyroid Stimulating Hormone 0.805 uIU/mL (0.465-4.680); Vitamin D 25 Hydroxy 79.9 ng/mL
[2022-05-03 14:06] LABS: Cortisol Random 8.27 ug/dL
== END 2022-05-03 11:35 | disposition home or self-care (01) ==
PROVIDERS: PCP Family Medicine; Visit Provider Internal Medicine Nephrology
DX: N18.32 Chronic kidney disease, stage 3b (principal); E21.1 Secondary hyperparathyroidism, not elsewhere classified; E87.1 Hypo-osmolality and hyponatremia
CPT/HCPCS: 36415; 80069; 82306; 82533; 82570; 83970; 84156; 84443; 85027

== ENCOUNTER 2022-05-20 15:02 | Outpatient (CLI) | payer MEDICARE, SELFPAY ==
[2022-05-20 16:08] LABS: Alanine Aminotransferase 67 U/L (6-50); Albumin Level 4.1 g/dL (3.5-5.1); Alkaline Phosphatase 98 U/L (38-126); Anion Gap 9 mmol/L (8-16); Aspartate Amino Transferase 64 U/L (17-59); Bilirubin,Total 1.9 mg/dL (0.2-1.3); Blood Urea Nitrogen 26 mg/dL (9-20); Carbon Dioxide 27 mmol/L (22-30); Chloride 100 mmol/L (98-107); Estimated Glomerular Filt Rate 37; Glucose 117 mg/dL (65-110); Potassium 4.1 mmol/L (3.4-5.0); Sodium 136 mmol/L (137-145)
== END 2022-05-20 15:03 | disposition home or self-care (01) ==
PROVIDERS: PCP Family Medicine; Visit Provider Internal Medicine Medical Oncology
DX: C90.00 Multiple myeloma not having achieved remission (principal)
CPT/HCPCS: 36415; 80053

== ENCOUNTER 2022-07-08 09:18 | Outpatient (CLI) | payer MEDICARE, SELFPAY ==
[2022-07-08 10:02] LABS: Hematocrit 47.9 % (42.0-52.0); Hemoglobin 15.5 g/dL (14.0-18.0); Mean Corpuscular HGB Conc 32.4 g/dl (32-36); Mean Corpuscular Hemoglobin 27.6 pg (26-34); Mean Corpuscular Volume 85.4 fl (80-100); Mean Platelet Volume 11.1 fl (7.4-10.4); Platelet Count Result 177 k/mm3 (150-375); Red Blood Count 5.61 M/mm3 (4.6-6.20); White Blood Count 7.4 K/mm3 (4.5-10.0)
[2022-07-08 10:13] LABS: Alanine Aminotransferase 69 U/L (6-50); Albumin Level 4.1 g/dL (3.5-5.1); Alkaline Phosphatase 97 U/L (38-126); Anion Gap 9 mmol/L (8-16); Aspartate Amino Transferase 58 U/L (17-59); Bilirubin,Total 1.6 mg/dL (0.2-1.3); Blood Urea Nitrogen 33 mg/dL (9-20); Calcium 9.3 mg/dL (8.4-10.2); Carbon Dioxide 25 mmol/L (22-30); Chloride 101 mmol/L (98-107); Estimated Glomerular Filt Rate 42; Glucose 141 mg/dL (65-110); Potassium 4.2 mmol/L (3.4-5.0); Sodium 135 mmol/L (137-145)
[2022-07-08 10:19] LABS: Immunoglobulin A 249 mg/dL (70-400)
[2022-07-11 21:27] LABS: Albumin 3.5 g/dL (3.8-4.8); Alpha 1 Globulin 0.3 g/dL (0.2-0.3); Beta 1 Globulin 0.5 g/dL (0.4-0.6); Gamma Globulin 0.8 g/dL (0.8-1.7); Protein, Total 6.5 g/dL (6.1-8.1)
[2022-07-12 21:03] LABS: Kappa\\Lambda Light Chains 2.97 (0.26-1.65); Lambda Light Chain 16.8 mg/L (5.7-26.3)
[2022-07-16 06:03] LABS: Beta-2-Microglobulin 3.56 mg/L (<=2.51)
== END 2022-07-08 09:19 | disposition home or self-care (01) ==
PROVIDERS: PCP Family Medicine; Visit Provider Internal Medicine Medical Oncology
DX: C90.00 Multiple myeloma not having achieved remission (principal)
CPT/HCPCS: 36415; 80053; 82232; 82784; 83883; 84155; 84165; 85025

== ENCOUNTER 2022-09-04 16:24 | Outpatient (CLI) | payer MEDICARE, SELFPAY ==
[2022-09-04 17:32] LABS: Basophils Percent Auto 0.5 % (0.2-1.2); Eosinophils Absolute Auto 0.1 K/mm3 (0-0.3); Eosinophils Percent Auto 1.6 % (0-4.4); Hematocrit 48.4 % (42.0-52.0); Hemoglobin 15.7 g/dL (14.0-18.0); Immature Granulocyte Absolute 0.02 K/mm3 (0.00-0.031); Immature Granulocyte Percent A 0.4 % (0-0.5); Lymphocytes Absolute Auto 1.38 K/mm3 (0.9-3.2); Lymphocytes Percent Auto 24.5 % (18.3-44.2); Mean Corpuscular HGB Conc 32.4 g/dl (32-36); Mean Corpuscular Hemoglobin 28.2 pg (26-34); Mean Corpuscular Volume 86.9 fl (80-100); Mean Platelet Volume 12.7 fl (7.4-10.4); Monocytes Absolute Auto 0.9 K/mm3 (0.1-0.6); Monocytes Percent Auto 15.8 % (2.6-8.5); Neutrophils Absolute Auto 3.2 K/mm3 (1.3-6.7); Neutrophils Percent Auto 57.2 % (45.5-73.1); Platelet Count Result 137 k/mm3 (150-375); Red Blood Count 5.57 M/mm3 (4.6-6.20); Red Cell Distribution Width 19.3 % (11.5-14.5); White Blood Count 5.6 K/mm3 (4.5-10.0)
[2022-09-04 17:50] LABS: Alanine Aminotransferase 61 U/L (6-50); Albumin Level 4.1 g/dL (3.5-5.1); Alkaline Phosphatase 100 U/L (38-126); Anion Gap 7 mmol/L (8-16); Aspartate Amino Transferase 63 U/L (17-59); Bilirubin,Total 1.5 mg/dL (0.2-1.3); Blood Urea Nitrogen 38 mg/dL (9-20); Calcium 9.5 mg/dL (8.4-10.2); Carbon Dioxide 25 mmol/L (22-30); Chloride 102 mmol/L (98-107); Estimated Glomerular Filt Rate 42; Glucose 109 mg/dL (65-110); Potassium 4.2 mmol/L (3.4-5.0); Sodium 134 mmol/L (137-145)
[2022-09-06 19:17] LABS: Beta-2-Microglobulin 5.42 mg/L (<=2.51); Immunoglobulin A 252 mg/dL (70-320); Immunoglobulin G 838 mg/dL (600-1540); Immunoglobulin M 46 mg/dL (50-300)
[2022-09-07 10:12] LABS: Kappa\\Lambda Light Chains 2.45 (0.26-1.65)
[2022-09-07 21:06] LABS: Albumin 3.3 g/dL (3.8-4.8); Alpha 1 Globulin 0.4 g/dL (0.2-0.3); Alpha 2 Globulin 1.1 g/dL (0.5-0.9); Beta 1 Globulin 0.5 g/dL (0.4-0.6); Gamma Globulin 0.8 g/dL (0.8-1.7); Protein, Total 6.5 g/dL (6.1-8.1)
== END 2022-09-04 16:25 | disposition home or self-care (01) ==
LOC: ANHLAB 16:32
PROVIDERS: PCP Family Medicine; Visit Provider Internal Medicine Medical Oncology
DX: C90.00 Multiple myeloma not having achieved remission (principal)
CPT/HCPCS: 36415; 80053; 82232; 82784; 83883; 84155; 84165; 85025; 85055

== ENCOUNTER 2022-10-10 09:37 | Outpatient (CLI) | payer MEDICARE, SELFPAY ==
--- NOTE | ~2022-10-10 | US_ITS ---
EXAMINATION: US venous doppler [facility] DATE: 10/10/2022 10:21 INDICATION: Left lower limb swelling. TECHNIQUE: Grayscale ultrasound images without and with compression and Doppler ultrasound images of the left lower extremity veins were obtained. COMPARISON: Ultrasound 05/12/2020 FINDINGS: The visualized portions of left common femoral vein, profunda (deep) femoral vein, femoral vein, conchis jt veins, posterior tibial veins, and greater saphenous vein outflow are patent. There is thrombus in left popliteal vein. IMPRESSION: 1. Deep vein thrombosis involving left popliteal vein. Reviewed, dictated and finalized at location A.
== END 2022-10-10 09:38 | disposition home or self-care (01) ==
PROVIDERS: PCP Family Medicine; Visit Provider Internal Medicine Medical Oncology
DX: M79.89 Other specified soft tissue disorders (principal); I82.432 Acute embolism and thrombosis of left popliteal vein; Z86.718 Personal history of other venous thrombosis and embolism
CPT/HCPCS: 93971

== ENCOUNTER 2022-11-09 09:25 | Outpatient (CLI) | payer MEDICARE, SELFPAY ==
[2022-11-09 10:12] LABS: Basophils Percent Auto 0.5 % (0.2-1.2); Eosinophils Absolute Auto 0.1 K/mm3 (0-0.3); Eosinophils Percent Auto 1.3 % (0-4.4); Hematocrit 43.3 % (42.0-52.0); Hemoglobin 13.7 g/dL (14.0-18.0); Immature Granulocyte Absolute 0.03 K/mm3 (0.00-0.031); Immature Granulocyte Percent A 0.4 % (0-0.5); Lymphocytes Absolute Auto 1.29 K/mm3 (0.9-3.2); Lymphocytes Percent Auto 16.9 % (18.3-44.2); Mean Corpuscular HGB Conc 31.6 g/dl (32-36); Mean Corpuscular Hemoglobin 27.8 pg (26-34); Mean Corpuscular Volume 87.8 fl (80-100); Mean Platelet Volume 10.7 fl (7.4-10.4); Monocytes Absolute Auto 0.6 K/mm3 (0.1-0.6); Monocytes Percent Auto 8.1 % (2.6-8.5); Neutrophils Absolute Auto 5.6 K/mm3 (1.3-6.7); Neutrophils Percent Auto 72.8 % (45.5-73.1); Platelet Count Result 194 k/mm3 (150-375); Red Blood Count 4.93 M/mm3 (4.6-6.20); White Blood Count 7.7 K/mm3 (4.5-10.0)
[2022-11-09 10:22] LABS: Potassium 4.5 mmol/L (3.4-5.0)
[2022-11-09 10:28] LABS: Alanine Aminotransferase 39 U/L (6-50); Albumin Level 4.1 g/dL (3.5-5.1); Alkaline Phosphatase 85 U/L (38-126); Anion Gap 8 mmol/L (8-16); Aspartate Amino Transferase 38 U/L (17-59); Bilirubin,Total 1.4 mg/dL (0.2-1.3); Blood Urea Nitrogen 39 mg/dL (9-20); Calcium 9.2 mg/dL (8.4-10.2); Carbon Dioxide 25 mmol/L (22-30); Chloride 104 mmol/L (98-107); Estimated Glomerular Filt Rate 42; Glucose 137 mg/dL (65-110); Immunoglobulin G 679 mg/dL (700-1600); Sodium 137 mmol/L (137-145)
[2022-11-13 15:46] LABS: Albumin 3.4 g/dL (3.8-4.8); Alpha 1 Globulin 0.3 g/dL (0.2-0.3); Beta 1 Globulin 0.5 g/dL (0.4-0.6); Gamma Globulin 0.7 g/dL (0.8-1.7); Protein, Total 6.3 g/dL (6.1-8.1)
[2022-11-13 21:38] LABS: Kappa\\Lambda Light Chains 2.74 (0.26-1.65); Lambda Light Chain 21.7 mg/L (5.7-26.3)
[2022-11-14 20:36] LABS: Beta-2-Microglobulin 3.57 mg/L (<=2.51)
== END 2022-11-09 09:26 | disposition home or self-care (01) ==
PROVIDERS: PCP Family Medicine; Visit Provider Internal Medicine Medical Oncology
DX: C90.00 Multiple myeloma not having achieved remission (principal)
CPT/HCPCS: 36415; 80053; 82232; 82784; 83883; 84155; 84165; 85025

== ENCOUNTER 2022-11-12 15:12 | Outpatient (CLI) | payer MEDICARE, SELFPAY ==
[2022-11-13 17:28] LABS: Prostate Specific Antigen 5.5 ng/mL (< OR = 4.0)
== END 2022-11-12 15:13 | disposition home or self-care (01) ==
PROVIDERS: PCP Family Medicine; Visit Provider Internal Medicine Medical Oncology
DX: Z12.5 Encounter for screening for malignant neoplasm of prostate (principal)
CPT/HCPCS: 36415; 84153; G0103

== ENCOUNTER 2022-12-18 17:15 | Outpatient (CLI) | payer MEDICARE, SELFPAY ==
[2022-12-18 17:43] LABS: Hematocrit 35.5 % (42.0-52.0); Hemoglobin 10.6 g/dL (14.0-18.0); Mean Corpuscular HGB Conc 29.9 g/dl (32-36); Mean Corpuscular Hemoglobin 25.3 pg (26-34); Mean Corpuscular Volume 84.7 fl (80-100); Mean Platelet Volume 10.3 fl (7.4-10.4); Platelet Count Result 194 k/mm3 (150-375); Red Blood Count 4.19 M/mm3 (4.6-6.20); Red Cell Distribution Width 14.9 % (11.5-14.5); White Blood Count 6.5 K/mm3 (4.5-10.0)
[2022-12-18 17:57] LABS: Albumin Level 3.8 g/dL (3.5-5.1); Anion Gap 9 mmol/L (8-16); Blood Urea Nitrogen 27 mg/dL (9-20); Calcium 9.3 mg/dL (8.4-10.2); Carbon Dioxide 24 mmol/L (22-30); Chloride 102 mmol/L (98-107); Estimated Glomerular Filt Rate 39; Glucose 76 mg/dL (65-110); Phosphorus 3.6 mg/dL (2.5-4.5); Potassium 4.2 mmol/L (3.4-5.0); Sodium 135 mmol/L (137-145)
[2022-12-18 18:08] LABS: Parathyroid Intact 123.7 pg/mL (7.5-53.5)
[2022-12-18 18:25] LABS: Total Protein Urine Random 20 mg/dL; Ur Ttl Prot Creatinine Ratio 0.17 mg/mg (0-0.20)
== END 2022-12-18 17:16 | disposition home or self-care (01) ==
PROVIDERS: PCP Family Medicine; Visit Provider Internal Medicine Nephrology
DX: N18.32 Chronic kidney disease, stage 3b (principal); N18.4 Chronic kidney disease, stage 4 (severe); E21.1 Secondary hyperparathyroidism, not elsewhere classified; E87.1 Hypo-osmolality and hyponatremia
CPT/HCPCS: 36415; 80069; 82570; 83970; 84156; 85027

== ENCOUNTER 2023-01-03 16:31 | Outpatient (CLI) | payer MEDICARE, SELFPAY ==
[2023-01-03 17:54] LABS: Basophils Percent Auto 0.3 % (0.2-1.2); Eosinophils Absolute Auto 0.1 K/mm3 (0-0.3); Eosinophils Percent Auto 1.3 % (0-4.4); Hematocrit 28.2 % (42.0-52.0); Hemoglobin 8.2 g/dL (14.0-18.0); Immature Granulocyte Absolute 0.06 K/mm3 (0.00-0.031); Immature Granulocyte Percent A 0.9 % (0-0.5); Lymphocytes Absolute Auto 1.15 K/mm3 (0.9-3.2); Lymphocytes Percent Auto 16.6 % (18.3-44.2); Mean Corpuscular HGB Conc 29.1 g/dl (32-36); Mean Corpuscular Hemoglobin 24.1 pg (26-34); Mean Corpuscular Volume 82.9 fl (80-100); Mean Platelet Volume 12.3 fl (7.4-10.4); Monocytes Absolute Auto 0.6 K/mm3 (0.1-0.6); Monocytes Percent Auto 8.5 % (2.6-8.5); Neutrophils Percent Auto 72.4 % (45.5-73.1); Platelet Count Result 231 k/mm3 (150-375); Red Cell Distribution Width 15.7 % (11.5-14.5); White Blood Count 6.9 K/mm3 (4.5-10.0)
[2023-01-03 18:05] LABS: Alanine Aminotransferase 27 U/L (6-50); Alkaline Phosphatase 91 U/L (38-126); Anion Gap 13 mmol/L (8-16); Aspartate Amino Transferase 30 U/L (17-59); Bilirubin,Total 1.3 mg/dL (0.2-1.3); Blood Urea Nitrogen 36 mg/dL (9-20); Calcium 9.5 mg/dL (8.4-10.2); Carbon Dioxide 20 mmol/L (22-30); Chloride 99 mmol/L (98-107); Estimated Glomerular Filt Rate 34; Glucose 168 mg/dL (65-110); Potassium 4.2 mmol/L (3.4-5.0); Sodium 132 mmol/L (137-145)
[2023-01-03 18:36] LABS: Prostate Specific Antigen 1.8 ng/mL (< OR = 4.0)
[2023-01-03 20:02] LABS: Immunoglobulin G 565 mg/dL (700-1600)
[2023-01-07 09:08] LABS: Beta-2-Microglobulin 5.04 mg/L (<=2.51)
[2023-01-08 21:22] LABS: Kappa\\Lambda Light Chains 2.94 (0.26-1.65); Lambda Light Chain 21.6 mg/L (5.7-26.3)
== END 2023-01-03 16:32 | disposition home or self-care (01) ==
PROVIDERS: PCP Family Medicine; Visit Provider Internal Medicine Medical Oncology
DX: C90.00 Multiple myeloma not having achieved remission (principal); C61 Malignant neoplasm of prostate
CPT/HCPCS: 36415; 80053; 82232; 82784; 83883; 84153; 85025; G0103

== ENCOUNTER 2023-01-07 17:18 | Outpatient (CLI) | payer MEDICARE, SELFPAY ==
[2023-01-07 17:56] LABS: Immature Reticulocyte Fraction 39.6 % (3.0-15.9); Reticulocyte Hemoglobin Conten 18.3 pg (28.2-35.7); Reticulocyte Percent 3.24 % (0.7-4.3)
[2023-01-07 20:13] LABS: Iron 39 ug/dL (49-181)
[2023-01-07 20:22] LABS: Percent Iron Saturation 8 % (20-50)
[2023-01-07 20:48] LABS: Ferritin 7.23 ng/mL (11.1-264)
== END 2023-01-07 17:19 | disposition home or self-care (01) ==
PROVIDERS: PCP Family Medicine; Visit Provider Internal Medicine Medical Oncology
DX: D64.9 Anemia, unspecified (principal)
CPT/HCPCS: 36415; 82728; 83540; 83550; 85046

== ENCOUNTER 2023-01-27 12:11 | Outpatient (CLI) | payer MEDICARE, SELFPAY ==
[2023-01-27 12:49] LABS: Basophils Percent Auto 0.4 % (0.2-1.2); Eosinophils Absolute Auto 0.1 K/mm3 (0-0.3); Eosinophils Percent Auto 1.8 % (0-4.4); Hematocrit 31.7 % (42.0-52.0); Hemoglobin 8.9 g/dL (14.0-18.0); Immature Granulocyte Absolute 0.05 K/mm3 (0.00-0.031); Immature Granulocyte Percent A 0.7 % (0-0.5); Lymphocytes Absolute Auto 1.51 K/mm3 (0.9-3.2); Lymphocytes Percent Auto 20.4 % (18.3-44.2); Mean Corpuscular HGB Conc 28.1 g/dl (32-36); Mean Corpuscular Hemoglobin 26.6 pg (26-34); Mean Corpuscular Volume 94.6 fl (80-100); Mean Platelet Volume 10.5 fl (7.4-10.4); Monocytes Absolute Auto 0.7 K/mm3 (0.1-0.6); Monocytes Percent Auto 9.3 % (2.6-8.5); Neutrophils Percent Auto 67.4 % (45.5-73.1); Platelet Count Result 213 k/mm3 (150-375); Red Blood Count 3.35 M/mm3 (4.6-6.20); Red Cell Distribution Width 26.1 % (11.5-14.5); White Blood Count 7.4 K/mm3 (4.5-10.0)
[2023-01-27 13:35] LABS: Anisocytosis 1+ (NORMAL); Hypochromasia 1+ (NORMAL); Platelet Estimate Adequate (Adequate); Schistocytes Rare (NORMAL)
[2023-01-27 13:36] LABS: Poikilocytosis 1+ (NORMAL)
== END 2023-01-27 12:12 | disposition home or self-care (01) ==
PROVIDERS: PCP Family Medicine; Visit Provider Internal Medicine Medical Oncology
DX: C90.00 Multiple myeloma not having achieved remission (principal); D64.9 Anemia, unspecified
CPT/HCPCS: 36415; 85025

== ENCOUNTER 2023-02-19 15:52 | Outpatient (CLI) | payer MEDICARE, SELFPAY ==
[2023-02-19 16:48] LABS: Basophils Percent Auto 0.6 % (0.2-1.2); Eosinophils Absolute Auto 0.1 K/mm3 (0-0.3); Eosinophils Percent Auto 2.1 % (0-4.4); Hematocrit 23.7 % (42.0-52.0); Immature Granulocyte Absolute 0.05 K/mm3 (0.00-0.031); Immature Granulocyte Percent A 0.7 % (0-0.5); Lymphocytes Absolute Auto 1.14 K/mm3 (0.9-3.2); Mean Corpuscular Hemoglobin 25.5 pg (26-34); Mean Corpuscular Volume 94.4 fl (80-100); Mean Platelet Volume 10.9 fl (7.4-10.4); Monocytes Absolute Auto 0.8 K/mm3 (0.1-0.6); Monocytes Percent Auto 11.3 % (2.6-8.5); Neutrophils Absolute Auto 4.6 K/mm3 (1.3-6.7); Neutrophils Percent Auto 68.3 % (45.5-73.1); Nucleated Red Blood Cells Perc 0.3 % (0.0-0.2); Platelet Count Result 216 k/mm3 (150-375); Red Blood Count 2.51 M/mm3 (4.6-6.20); Red Cell Distribution Width 20.7 % (11.5-14.5); White Blood Count 6.7 K/mm3 (4.5-10.0)
[2023-02-19 17:05] LABS: Hemoglobin 6.4 g/dL (14.0-18.0); Hypochromasia 1+ (NORMAL); Macrocytosis 1+ (NORMAL); Platelet Estimate Adequate (Adequate)
[2023-02-19 17:06] LABS: Anisocytosis 2+ (NORMAL); Microcytosis 1+ (NORMAL); Ovalocytes 1+ (NORMAL); Polychromasia 1+ (NORMAL); Schistocytes Rare (NORMAL)
[2023-02-19 17:22] LABS: Immunoglobulin A 171 mg/dL (70-400)
[2023-02-19 17:46] LABS: Prostate Specific Antigen 2.1 ng/mL (< OR = 4.0)
[2023-02-22 17:15] LABS: Albumin 3.2 g/dL (3.8-4.8); Alpha 1 Globulin 0.4 g/dL (0.2-0.3); Alpha 2 Globulin 0.7 g/dL (0.5-0.9); Beta 1 Globulin 0.4 g/dL (0.4-0.6); Gamma Globulin 0.5 g/dL (0.8-1.7); Protein, Total 5.5 g/dL (6.1-8.1)
[2023-02-24 09:21] LABS: Beta-2-Microglobulin 4.27 mg/L (<=2.51); Immunoglobulin A 179 mg/dL (70-320); Immunoglobulin G 589 mg/dL (600-1540); Immunoglobulin M 29 mg/dL (50-300)
== END 2023-02-19 15:53 | disposition home or self-care (01) ==
LOC: ANHLAB 15:56
PROVIDERS: PCP Family Medicine; Visit Provider Internal Medicine Medical Oncology
DX: C61 Malignant neoplasm of prostate (principal); C90.00 Multiple myeloma not having achieved remission
CPT/HCPCS: 36415; 82232; 82784; 84153; 84155; 84165; 85025

== ENCOUNTER 2023-02-19 20:29 | Inpatient (IN) | payer MEDICARE, SELFPAY ==
--- NOTE | ~2023-02-19 | XR_ITS ---
EXAMINATION: XR chest 2V Exam Date/Time: 02/19/2023 21:10 RESEARCH LABORATORY SPECIALIST HISTORY: cp, weakness, low hgb SINCE NOVEMBER Comparison: 07/10/2021. RESULT: Lines, tubes, and devices: Cholecystectomy clips. Lungs and pleura: Granulomatous calcifications. Peripheral left basilar scar. Cardiomediastinal silhouette: Stable. Other: No acute osseous or upper abdominal finding. IMPRESSION: No acute cardiopulmonary process. Reviewed, dictated and finalized at location K. ARCH LABORATORY SPECIALIST
[2023-02-19 20:54] VITALS: BP 99/51; PULSE 77; RESP 20; TEMP 36.2; O2SAT 100
--- NOTE | 2023-02-19 20:58 | ECG_ITS ---
Measurements Intervals [place] Rate: 72 P: 18 MN: 295 QRS: 54 QRSD: 107 T: -8 QT: 421 QTc: 464 Interpretive Statements SINUS RHYTHM WITH FIRST DEGREE AV BLOCK LOW QRS VOLTAGE IN PRECORDIAL LEADS [QRS DEFLECTION < 1.0 mV IN CHEST LEADS] MODERATE INTRAVENTRICULAR CONDUCTION DELAY [105+ ms QRS DURATION, 80+ ms Q/S IN V1/V2, NO Q AND 60+ ms R IN I/aVL/V5/V6] NONSPECIFIC T-WAVE ABNORMALITY COMPARED TO ECG 01/30/2022 14:36:46 NO SIGNIFICANT CHANGES Electronically Signed On 02-19-2023 21:16:16 JANITOR CARETAKER by Fuad Pineda M.D.
[2023-02-19 21:16] LABS: Basophils Percent Auto 0.6 % (0.2-1.2); Eosinophils Absolute Auto 0.1 K/mm3 (0-0.3); Eosinophils Percent Auto 1.5 % (0-4.4); Hematocrit 23.2 % (42.0-52.0); Immature Granulocyte Absolute 0.06 K/mm3 (0.00-0.031); Immature Granulocyte Percent A 0.8 % (0-0.5); Lymphocytes Absolute Auto 0.89 K/mm3 (0.9-3.2); Lymphocytes Percent Auto 12.4 % (18.3-44.2); Mean Corpuscular HGB Conc 27.2 g/dl (32-36); Mean Corpuscular Hemoglobin 25.5 pg (26-34); Mean Corpuscular Volume 93.9 fl (80-100); Mean Platelet Volume 10.2 fl (7.4-10.4); Monocytes Absolute Auto 0.5 K/mm3 (0.1-0.6); Monocytes Percent Auto 7.5 % (2.6-8.5); Neutrophils Absolute Auto 5.5 K/mm3 (1.3-6.7); Neutrophils Percent Auto 77.2 % (45.5-73.1); Nucleated Red Blood Cells Perc 0.4 % (0.0-0.2); Platelet Count Result 201 k/mm3 (150-375); Red Blood Count 2.47 M/mm3 (4.6-6.20); Red Cell Distribution Width 20.9 % (11.5-14.5); White Blood Count 7.2 K/mm3 (4.5-10.0)
[2023-02-19 21:27] LABS: Hemoglobin 6.3 g/dL (14.0-18.0); INR 1.3; Partial Thromboplastin Time 31.9 SECONDS (22.3-36.8); Prothrombin Time 17.1 Seconds (11.1-14.7)
[2023-02-19 21:28] LABS: Anisocytosis 1+ (NORMAL); Hypochromasia 1+ (NORMAL); Ovalocytes 1+ (NORMAL); Platelet Estimate Adequate (Adequate); Schistocytes None Seen (NORMAL)
[2023-02-19 21:33] LABS: Alanine Aminotransferase 17 U/L (6-50); Albumin Level 3.2 g/dL (3.5-5.1); Alkaline Phosphatase 89 U/L (38-126); Anion Gap 8 mmol/L (8-16); Aspartate Amino Transferase 22 U/L (17-59); Bilirubin,Total 0.6 mg/dL (0.2-1.3); Blood Urea Nitrogen 29 mg/dL (9-20); Calcium 8.3 mg/dL (8.4-10.2); Carbon Dioxide 22 mmol/L (22-30); Chloride 106 mmol/L (98-107); Estimated Glomerular Filt Rate 42; Glucose 231 mg/dL (65-110); Lipase 200 U/L (23-300); Potassium 3.9 mmol/L (3.4-5.0); Sodium 136 mmol/L (137-145)
[2023-02-19 21:45] LABS: Troponin I 0.372 ng/mL (0.000-0.034)
[2023-02-19 22:33] VITALS: BP 137/75; PULSE 78; RESP 15; TEMP 36.7; O2SAT 100
--- NOTE | 2023-02-19 22:47 | ED.GENADULT ---
HPI - General Adult General Chief complaint: Recheck/Abnormal Lab/Rx Stated complaint: low hgb Time Seen by Provider: 02/19/23 22:39 History of Present Illness HPI narrative: patient is a 77-year-old gentleman who presents to emergency department with chief complaint of abnormal labs. Patient has history of multiple myeloma and has had issues with anemia the patient states that he has also been having intermittent episodes of shortness of breath and chest discomfort the patient was found have a low hemoglobin in the 6 is and was recommend to come to the emergency department for evaluation. Patient reports that he has had some black stool and is on Eliquis Related Data Home Medications Medication Instructions Recorded Confirmed amiodarone 200 mg tablet 200 mg PO DAILY 04/22/19 12/24/22 ezetimibe 10 mg tablet (Zetia) 10 mg PO DAILY 04/22/19 12/24/22 furosemide 20 mg tablet (Lasix) 20 mg PO EVERY OTHER DAY 04/22/19 12/24/22 ixazomib 4 mg capsule (Ninlaro) See Rx Instructions PO .COMPLEX 04/22/19 12/24/22 nitroglycerin 0.4 mg sublingual See Rx Instructions .Route .COMPLEX 04/22/19 12/24/22 tablet (Nitrostat) spironolactone 25 mg tablet 25 mg PO DAILY 04/22/19 12/24/22 apixaban 5 mg tablet (Eliquis) 5 mg PO BID 07/09/21 12/24/22 dulaglutide 1.5 mg/0.5 mL 3 mg subcut WEEKLY 07/09/21 12/24/22 subcutaneous pen injector (Trulicity) empagliflozin 25 mg tablet 25 mg PO DAILY 07/09/21 12/24/22 (Jardiance) gabapentin 300 mg capsule 300 mg PO QPM 07/09/21 12/24/22 gabapentin 800 mg tablet 800 mg PO QAM 07/09/21 12/24/22 oxycodone-acetaminophen 5 mg-325 1 tablet PO Q6H PRN Pain 07/09/21 12/24/22 mg tablet acyclovir 400 mg tablet 400 mg PO .PM 12/23/22 12/24/22 cholecalciferol (vitamin D3) 50 50 mcg PO DAILY 12/23/22 12/23/22 mcg (2,000 unit) capsule insulin glargine U-300 conc 300 35 unit subcut DAILY 12/23/22 12/24/22 unit/mL (1.5 mL) subcutaneous pen (Toujeo SoloStar U-300 Insulin) insulin lispro 100 unit/mL 8 unit subcut TIDWMEAL 12/23/22 12/24/22 subcutaneous pen (Humalog KwikPen (U-100) Insulin) relugolix 120 mg tablet (Orgovyx) 120 mg PO .AM 12/23/22 12/24/22 Allergies Allergy/AdvReac Type Severity Reaction Status Date / Time lenalidomide [From Revlimid] Allergy Intermediate Hives Verified 12/23/22 11:01 niacin Allergy Intermediate Hives Verified 12/23/22 11:01 NSAIDS (Non-Steroidal Allergy Mild Unknown Verified 12/23/22 11:01 Anti-Inflamma Review of Systems Review of Systems: A 10 system review of systems was completed on the patient and is negative except for what is stated in the HPI. Nursing and ancillary documentation was reviewed. [facility] Past Medical History Medical History Cardiomyopathy due to hypertension, with heart failure Chronic obstructive pulmonary disease, unspecified CKD (chronic kidney disease) stage 4, GFR 15-29 ml/min Essential (primary) hypertension H/O deep venous thrombosis Multiple myeloma Other hyperlipidemia Type 2 diabetes mellitus with diabetic neuropathy, unspecified Surgical History Surgical History History of bilateral carpal tunnel release History of colon resection History of colostomy reversal Hx laparoscopic cholecystectomy Hx of angioplasty Hx of cardiac cath Hx of tonsillectomy Hx of total knee replacement Family History Family History Father Acute myocardial infarction, Onset Age: 72 Mother Acute myocardial infarction, Onset Age: 83 Social History Social History Smoking packs per day: 1.5 Smoking cigarettes per day: 30.0 Years smoked: 25 Smoking pack-years: 37.50 Smoking status: Former smoker Tobacco type: cigarettes and cigars Smoking end date: 02/24/89 Fabrizio
[2023-02-19 23:13] VITALS: BP 120/62; PULSE 74; RESP 22; O2SAT 100
[2023-02-19 23:21] VITALS: BP 120/62; PULSE 71; RESP 15; O2SAT 100
[2023-02-20] VITALS (26 sets, daily range): BP systolic 106–140; BP diastolic 53–92; PULSE 61–81; RESP 15–24; TEMP 36.3–37.1; O2SAT 97–100; BMI 32.5
[2023-02-20 01:07] LABS: Troponin I 0.379 ng/mL (0.000-0.034)
[2023-02-20] MEDS: SODIUM CHLORIDE 0.9% IV 250 ML 30 ML IV CONT ×2 (01:18→05:53)
[2023-02-20] MEDS: TUBING, BLOOD PLUM PUMP TUBING 1 EACH XX ×2 (01:18→05:53)
[2023-02-20 04:14] LABS: Hematocrit 24.8 % (42.0-52.0)
[2023-02-20 04:32] LABS: Hemoglobin 6.9 g/dL (14.0-18.0)
[2023-02-20 04:50] LABS: Troponin I 0.324 ng/mL (0.000-0.034)
[2023-02-20 05:25] LABS: Basophils Percent Auto 0.6 % (0.2-1.2); Eosinophils Absolute Auto 0.2 K/mm3 (0-0.3); Eosinophils Percent Auto 2.7 % (0-4.4); Hematocrit 25.1 % (42.0-52.0); Immature Granulocyte Absolute 0.05 K/mm3 (0.00-0.031); Immature Granulocyte Percent A 0.8 % (0-0.5); Lymphocytes Absolute Auto 1.07 K/mm3 (0.9-3.2); Mean Corpuscular HGB Conc 27.9 g/dl (32-36); Mean Corpuscular Hemoglobin 25.7 pg (26-34); Mean Corpuscular Volume 92.3 fl (80-100); Mean Platelet Volume 10.3 fl (7.4-10.4); Monocytes Absolute Auto 0.7 K/mm3 (0.1-0.6); Monocytes Percent Auto 10.3 % (2.6-8.5); Neutrophils Absolute Auto 4.3 K/mm3 (1.3-6.7); Neutrophils Percent Auto 68.6 % (45.5-73.1); Nucleated Red Blood Cells Perc 0.3 % (0.0-0.2); Platelet Count Result 187 k/mm3 (150-375); Red Blood Count 2.72 M/mm3 (4.6-6.20); White Blood Count 6.3 K/mm3 (4.5-10.0)
[2023-02-20 05:37] LABS: Anion Gap 6 mmol/L (8-16); Blood Urea Nitrogen 25 mg/dL (9-20); Calcium 8.4 mg/dL (8.4-10.2); Carbon Dioxide 22 mmol/L (22-30); Chloride 110 mmol/L (98-107); Estimated CRCL calculation 47 ml/min; Estimated Glomerular Filt Rate 49; Glucose 120 mg/dL (65-110); Potassium 3.7 mmol/L (3.4-5.0); Sodium 138 mmol/L (137-145)
[2023-02-20 05:57] LABS: Platelet Estimate Adequate (Adequate)
[2023-02-20 05:58] LABS: Anisocytosis 2+ (NORMAL); Hypochromasia 2+ (NORMAL); Ovalocytes 1+ (NORMAL); Polychromasia 1+ (NORMAL); Schistocytes 1+ (NORMAL); Tear Drop Cells 1+ (NORMAL)
--- NOTE | 2023-02-20 10:01 | ADMGEN ---
This patient, Cal Yang, was admitted to [facility]. Patient/family oriented to hospital policies and general routines including ID bracelet, bed and alarms, visiting hours, pain management, procedures, bathroom and other care routines, personal items, smoking policy, room service/diet, and visiting hours. Information on how to activate the Rapid Response Team has been discussed. Patient/Family are encouraged to report perceived risks to care and to ask questions if they do not understand what they are told or what they should do.
--- NOTE | 2023-02-20 10:20 | PC.NURSE ---
Dr. Pierson stopped by to assess and speak with patient.
[2023-02-20] MEDS: PANTOPRAZOLE SODIUM IV 40 MG VIAL IV PUSH (10:27)
--- NOTE | 2023-02-20 10:31 | PM.IMHP ---
H&P: HPI History of Present Illness Date/Time: 02/20/23 10:31 Chief Complaint: 1. Low hemoglobin 2. Chest pain Narrative: 77 years old male with history of multiple medical problems including multiple myeloma, chronic anemia on Eliquis came to the emergency room with complaints that patient was found to have low hemoglobin during outpatient lab testing. Patient is on Eliquis and did complain of having black stool for few days. Patient complained having generalized weakness. Patient denies any abdominal pain or nausea. In the emergency room patient also complained having chest pain and mild shortness of breath. Patient was also found to have abnormal troponin. Patient was given 1 unit of blood in the ER. And was transferred to floor for further evaluation management. At present time patient is pain free. Patient however complained having generalized weakness. Patient denies any other complaints at present time. Review of Systems Review of Systems: All systems reviewed & are unremarkable except as noted in HPI and below (the history and physical examination.) [facility] Past Medical History Medical History Cardiomyopathy due to hypertension, with heart failure Chronic obstructive pulmonary disease, unspecified CKD (chronic kidney disease) stage 4, GFR 15-29 ml/min Essential (primary) hypertension H/O deep venous thrombosis Multiple myeloma Other hyperlipidemia Type 2 diabetes mellitus with diabetic neuropathy, unspecified Surgical History Surgical History History of bilateral carpal tunnel release History of colon resection History of colostomy reversal Hx laparoscopic cholecystectomy Hx of angioplasty Hx of cardiac cath Hx of tonsillectomy Hx of total knee replacement Family History Family History Father Acute myocardial infarction, Onset Age: 72 Mother Acute myocardial infarction, Onset Age: 83 Social History Social History Smoking packs per day: 1.5 Smoking cigarettes per day: 30.0 Years smoked: 25 Smoking pack-years: 37.50 Smoking status: Former smoker Tobacco type: cigarettes Smoking end date: 02/24/90 Alcohol intake: current Drinks per week: 1 Alcohol use details: social Substance use: never Substance use type: does not use Do You Feel Safe in your Home?: Yes Lack of Transportation: No Lack of Food: Never True Current Housing: I Have Housing Concerned About Future Housing: No Difficulty Paying Gas/Electric Bills: No Difficulty Paying for Meds: No Currently Unemployed: No Education: Bachelor's Degree Difficulty w/ Childcare or Family Care: No Living arrangements: with family Gender identity (if verbalized by the patient): Male Spiritual care concerns: No Meds Home Medications and Allergies Home Medications Medication Instructions Recorded Confirmed Type atorvastatin 80 mg tablet 80 mg PO DAILY #90 tabs 02/09/19 02/20/23 Rx pen needle, diabetic 32 gauge x #100 ea 02/09/19 12/24/22 Rx /32 (BD Ultra-Fine Haven Pen Needle) amiodarone 200 mg tablet 200 mg PO DAILY 04/22/19 02/20/23 History ezetimibe 10 mg tablet (Zetia) 10 mg PO DAILY 04/22/19 02/20/23 History furosemide 20 mg tablet (Lasix) 20 mg PO EVERY OTHER DAY 04/22/19 02/20/23 History ixazomib 4 mg capsule (Ninlaro) See Rx Instructions PO .COMPLEX 04/22/19 02/20/23 History nitroglycerin 0.4 mg sublingual 0.4 mg buccal DIRECTED PRN 04/22/19 02/20/23 History tablet (Nitrostat) Chest Pain spironolactone 25 mg tablet 25 mg PO DAILY 04/22/19 02/20/23 History apixaban 5 mg tablet (Eliquis) 5 mg PO BID 07/09/21 02/20/23 History dulaglutide 1.5 mg/0.5 mL 3 mg subcut WEEKLY 07/09/21 02/20/23 History subcutaneous pen injector (Trulicity) empagliflozin 25 mg table
--- NOTE | 2023-02-20 10:44 | PC.NURSE ---
Dr. Pineda with cardiology assessed and talked with patient.
--- NOTE | 2023-02-20 10:47 | PM.CNCAR ---
Assessment and Plan Assessment and plan (1) Elevated troponin: Code(s): R79.89 - Other specified abnormal findings of blood chemistry Status: Acute Assessment and Plan: Mildly elevated, but flat. EKG without ischemic changes. In the setting of acute on chronic anemia requiring blood transfusions. Elevated troponin is not consistent with an acute coronary syndrome. No further cardiac workup at this time. Recommend treatment of underlying anemia. (2) Acute on chronic anemia: Code(s): D64.9 - Anemia, unspecified Status: Acute Assessment and Plan: As per primary team. Can hold Eliquis if needed, resume once Hgb stabilizes and no concerns for active bleed. (3) Stool guaiac positive: Code(s): R19.5 - Other fecal abnormalities Status: Acute Assessment and Plan: Has had black stools for the past 2 months. GI has been consulted. (4) Coronary artery disease: Code(s): I25.10 - Atherosclerotic heart disease of [place] coronary artery without angina pectoris Status: Acute Assessment and Plan: Stable. Continue medical management. Outpatient follow up with Dr. Garrett. (5) Atrial fibrillation: Code(s): I48.91 - Unspecified atrial fibrillation Status: Acute Assessment and Plan: In sinus rhythm. Continue Amiodarone. Can hold Eliquis if needed, resume once Hgb stabilizes and no concerns for active bleed. Plan Cardiology will sign off at this time. Please call us back if needed. Will arrange for outpatient follow up with Dr. Garrett. History of Present Illness History of Present Illness Consult date/time: 02/20/23 10:47 Requesting physician: Basim Middleton MD Consult reason: Other (Elevated troponin) Reason For Visit: Acute Anemia,Guaiac-Positive Stools,Elevated Trop Narrative: We are consulted for elevated troponin. This is a 77 year old male who sees Dr. Garrett. Last saw Dr. Garrett in December 2022. He has a history of coronary artery disease s/p prior intervention and history of ischemic left ventricular dysfunction. Has atrial fibrillation for which he has been on Amiodarone and Eliquis. When he last saw Dr. Garrett, he reported anginal symptoms, but he was also noted to be quite anemic. Stress test done recently shows pervious inferoposterior infarction, medium sized area of mild to moderate ischemia in the apex, apical anterior, and mid anteroseptal bray (although per Dr. Baird, he did not really appreciate any evidence for ischemia when he personally reviewed the images). Plan for conservative management due to ongoing issues with anemia. Patient tells me that he has had stable chest pain, same chest pain when he last saw Dr. Garrett. It usually gets worse when his anemia worsens and improves after getting blood transfusions and having improvement in Hgb levels. Patient was sent to the ER on 02/19 because his Hgb was noted to be low, found to be 6. He reports having black stools for the past two months. EKG without ischemic changes. Troponins of 0.372, 0.379, 0.324. He is currently feeling better after getting blood transfusions. Review of Systems Review of Systems: All systems reviewed & are unremarkable except as noted in HPI and below (HPI) PMFSH Past Medical History Medical History Cardiomyopathy due to hypertension, with heart failure Chronic obstructive pulmonary disease, unspecified CKD (chronic kidney disease) stage 4, GFR 15-29 ml/min Essential (primary) hypertension H/O deep venous thrombosis Multiple myeloma Other hyperlipidemia Type 2 diabetes mellitus with diabetic neuropathy, unspecified Surgical History Surgical History History of bilateral carpal tunnel release History of colon resection History of colostomy reversal Hx laparoscopic cholecystectomy Hx of angioplasty Hx of cardiac cath Hx of tonsil
[2023-02-20 13:29] LABS: Hematocrit 28.4 % (42.0-52.0); Hemoglobin 8.2 g/dL (14.0-18.0)
--- NOTE | 2023-02-20 15:12 | WPDGICN ---
Assessment and Plan Assessment and plan (1) CKD (chronic kidney disease) stage 4, GFR 15-29 ml/min: Code(s): N18.4 - Chronic kidney disease, stage 4 (severe) Status: Acute Assessment and Plan: Chronic kidney disease probably contributes to least in some part to his anemia. His creatinine was 1.6 yesterday and 1.4 today. Troponins have been elevated at just over 0.3 on 3 consecutive measurements. He has been seen by Cardiology. His Eliquis has been held because of the suspected bleeding. (2) Acute on chronic anemia: Code(s): D64.9 - Anemia, unspecified Status: Acute Assessment and Plan: He had melena in the form of black stools for the past few weeks. Stool is Hemoccult positive. He is chronically on Eliquis. He did have an EGD 1 year ago which was unremarkable. Also at that time colonoscopy revealed only internal hemorrhoids. (3) H/O deep venous thrombosis: Code(s): Z86.718 - Personal history of other venous thrombosis and embolism Status: Acute Assessment and Plan: He is chronically anticoagulated for this reason but more so because of atrial fibrillation (4) Atrial fibrillation: Code(s): I48.91 - Unspecified atrial fibrillation Status: Acute (5) Multiple myeloma: Code(s): C90.00 - Multiple myeloma not having achieved remission Status: Acute Assessment and Plan: he is treated by Dr. Orona would recently given him 2 units of blood and iron infusion. Plan Will perform EGD tomorrow morning. I see that he has been NPO all day and has no IV fluids. I will ask nursing to check with Cardiology to see if it is okay for him to have IV fluids to prevent dehydration. GI Consult Note Consult date/time: 02/20/23 15:12 HPI: Cal Yang is a 77 year old male who was admitted this morning because of chest pain and low blood counts. He does have multiple myeloma, he is chronically anemic and he takes Eliquis because of history of deep vein thrombosis. He states that he has noticed black stools for about the past 3 weeks. He was started on oral iron about 2 weeks ago. His stools however were black prior to that. He had a recent ablation of his prostate. Was not radiation treatment he. He had that actually a couple of years ago. He was found to be quite anemic with a hemoglobin last night was 6.3. He received 1 unit of blood and today his blood count is up to a hemoglobin of 7. He is chronically anemic but earlier this month his hemoglobin was 8.9 and therefore this is quite low for him. He did receive transfusions in December and also an infusion of iron at that time. He also recently has had discomfort of a cramping sensation in the mid abdomen. He has had no vomiting. He denies significant or chronic heartburn. Admission he was quite weak but no longer having abdominal pain. Review of Systems Review of Systems: All systems reviewed & are unremarkable except as noted in HPI and below PMFSH Past Medical History Medical History Cardiomyopathy due to hypertension, with heart failure Chronic obstructive pulmonary disease, unspecified CKD (chronic kidney disease) stage 4, GFR 15-29 ml/min Essential (primary) hypertension H/O deep venous thrombosis Multiple myeloma Other hyperlipidemia Type 2 diabetes mellitus with diabetic neuropathy, unspecified Surgical History Surgical History History of bilateral carpal tunnel release History of colon resection History of colostomy reversal Hx laparoscopic cholecystectomy Hx of angioplasty Hx of cardiac cath Hx of tonsillectomy Hx of total knee replacement Family History Family History Father Acute myocardial infarction, Onset Age: 72 Mother Acute myocardial infarction, Onset Age: 83 Mati
--- NOTE | 2023-02-20 16:43 | PC.NURSE ---
Addendum entered by Alie Linton RN 02/20/23 16:53: pt went to 309 instead of 327 Original Note: pt transferred to room 327 @1640. Report given to 3 media manager. Pt taken via wheelchair with chart in hand.
[2023-02-20 17:27] LABS: Glucose Point of Care 161 mg/dl (65-105)
[2023-02-20] MEDS: GABAPENTIN 300 MG CAPSULE PO (17:40)
[2023-02-20] MEDS: INSULIN ASPART (*BKC) 100 UNITS/ML 12 UNITS SUB-Q (17:40)
[2023-02-20 19:42] LABS: Hematocrit 27.6 % (42.0-52.0); Hemoglobin 7.9 g/dL (14.0-18.0)
[2023-02-20 21:26] LABS: Glucose Point of Care 176 mg/dl (65-105)
[2023-02-21] VITALS (10 sets, daily range): BP systolic 100–142; BP diastolic 53–82; PULSE 63–80; RESP 16–24; TEMP 36.5–36.9; O2SAT 96–100
--- NOTE | 2023-02-21 | ECHO_ITS ---
Patient Info Name: Cal Yang Age: 77 years : 1945 Gender: Male Ht: 70 in Wt: 227 lbs BSA: 2.29 m2 HR: 63 bpm BP: 109 / 60 mmHg Heart Rhythm: Sinus Rhythm Technical Quality: Good Exam Date: 02/21/2023 2:13 PM Exam Location: Echo Lab Patient Status: Inpatient Admit Date: 02/20/2023 Staff Ordering Physician: Domitila Phillips PA-C Continuous Linter Drier Operator: Che Baltazar RDCS Attending Provider: Domitila Phillips PA-C Referring Physician: Jacqueline CORNEJO; Exam Type: CA echo dop color flow w con Study Info Indications - new murmur Complete two-dimensional, color flow and Doppler transthoracic echocardiogram is performed with contrast to opacify the left ventricle and to improve the deliniation of the left ventricle endocardial borders. Contrast/Agitated Saline Contrast/Ag. Saline: Definity Amount: 3.00 ml Administered By: Che Baltazar RDCS Existing IV Access: Yes IV Access Condition: patent with no signs of infiltration Summary 1. Left ventricular chamber dimension is normal. 2. Left ventricular systolic function is normal, estimated at 55-60%. 3. There is mildly increased left ventricular wall thickness. 4. The left ventricular diastolic function is grade I diastolic dysfunction. 5. Right ventricular systolic function is normal. 6. Left atrial chamber dimension is severely enlarged. 7. There is severe aortic valve calcification. 8. There is mild aortic valve stenosis with a peak velocity of 293.52 cm/s, mean gradient of 17 mmHg, and aortic valve area of 1.77 cm2. 9. There is moderate mitral valve regurgitation. 10. There is mild tricuspid valve regurgitation. Left Ventricle Left ventricular chamber dimension is normal. Left ventricular systolic function is normal, estimated at 55-60%. There is mildly increased left ventricular wall thickness. The left ventricular diastolic function is grade I diastolic dysfunction. Right Ventricle Right ventricular chamber dimension is normal. Right ventricular systolic function is normal. Left Atria Left atrial chamber dimension is severely enlarged. Right Atria Right atrial chamber dimension is normal. Atrial Septum Intact interatrial septum visualized by color flow imaging. Aortic Valve The aortic valve is probable trileaflet. There is mild aortic valve stenosis with a peak velocity of 293.52 cm/s, mean gradient of 17 mmHg, and aortic valve area of 1.77 cm2. There is mild aortic valve regurgitation. There is severe aortic valve calcification. Pulmonic Valve The pulmonic valve is not well visualized. Mitral Valve There is moderate mitral valve regurgitation. The mitral valve annulus is mildly calcified. Tricuspid Valve There is mild tricuspid valve regurgitation. Pericardium/Pleural There is no pericardial effusion. Inferior Vena Cava Normal inferior vena cava with >50% collapse upon inspiration consistent with normal right atrial pressure, 3 mmHg. Aorta The aortic root size at the sinus of Valsalva is normal. Left Ventricular Outflow Tract Name Value Normal LVOT 2D LVOT Diameter 2.33 cm LVOT Doppler LVOT Peak Gradient 5 mmHg LVOT Mean Gradient
[2023-02-21 06:53] LABS: Basophils Percent Auto 0.6 % (0.2-1.2); Eosinophils Absolute Auto 0.2 K/mm3 (0-0.3); Eosinophils Percent Auto 2.7 % (0-4.4); Hematocrit 28.4 % (42.0-52.0); Hemoglobin 8.2 g/dL (14.0-18.0); Immature Granulocyte Absolute 0.04 K/mm3 (0.00-0.031); Immature Granulocyte Percent A 0.6 % (0-0.5); Lymphocytes Absolute Auto 1.15 K/mm3 (0.9-3.2); Lymphocytes Percent Auto 16.5 % (18.3-44.2); Mean Corpuscular HGB Conc 28.9 g/dl (32-36); Mean Corpuscular Hemoglobin 26.5 pg (26-34); Mean Corpuscular Volume 91.9 fl (80-100); Mean Platelet Volume 10.5 fl (7.4-10.4); Monocytes Absolute Auto 0.7 K/mm3 (0.1-0.6); Monocytes Percent Auto 10.4 % (2.6-8.5); Neutrophils Absolute Auto 4.8 K/mm3 (1.3-6.7); Neutrophils Percent Auto 69.2 % (45.5-73.1); Platelet Count Result 191 k/mm3 (150-375); Red Blood Count 3.09 M/mm3 (4.6-6.20); Red Cell Distribution Width 20.5 % (11.5-14.5)
[2023-02-21 07:03] LABS: Alanine Aminotransferase 15 U/L (6-50); Albumin Level 2.9 g/dL (3.5-5.1); Alkaline Phosphatase 75 U/L (38-126); Anion Gap 6 mmol/L (8-16); Aspartate Amino Transferase 21 U/L (17-59); Bilirubin,Total 1.4 mg/dL (0.2-1.3); Blood Urea Nitrogen 20 mg/dL (9-20); Calcium 8.5 mg/dL (8.4-10.2); Carbon Dioxide 22 mmol/L (22-30); Chloride 108 mmol/L (98-107); Estimated CRCL calculation 46 ml/min; Estimated Glomerular Filt Rate 49; Glucose 117 mg/dL (65-110); Potassium 4.1 mmol/L (3.4-5.0); Sodium 136 mmol/L (137-145)
[2023-02-21 07:48] LABS: Glucose Point of Care 143 mg/dl (65-105)
[2023-02-21] MEDS: EMPAGLIFLOZIN 25 MG TABLET PO (08:45)
[2023-02-21] MEDS: CHOLECALCIFEROL 1,000 UNITS TABLET 2000 UNITS PO (08:45)
[2023-02-21] MEDS: AMIODARONE HCL 200 MG TABLET PO (08:45)
[2023-02-21] MEDS: SPIRONOLACTONE 25 MG TABLET PO (08:45)
[2023-02-21] MEDS: ATORVASTATIN 40 MG TABLET 80 MG PO (08:45)
[2023-02-21] MEDS: EZETIMIBE 10 MG TABLET PO (08:45)
[2023-02-21] MEDS: calcitrioL 0.25 MCG CAPSULE PO (08:45)
[2023-02-21] MEDS: FUROSEMIDE 20 MG TABLET PO (08:45)
[2023-02-21] MEDS: GABAPENTIN 400 MG CAPSULE 800 MG PO (08:45)
[2023-02-21] MEDS: oxyCODONE/ACETAMINOPHEN (*CRX) 5-325 MG TABLET 1 TABLET PO (08:50)
[2023-02-21] MEDS: PANTOPRAZOLE SODIUM IV 40 MG VIAL IV PUSH (08:51)
[2023-02-21 09:00] LABS: Anisocytosis 2+ (NORMAL); Platelet Estimate Adequate (Adequate)
[2023-02-21 09:01] LABS: Crenated RBC 1+ (NORMAL); Ovalocytes 1+ (NORMAL); Poikilocytosis 1+ (NORMAL); Schistocytes None Seen (NORMAL)
[2023-02-21 11:27] LABS: Glucose Point of Care 139 mg/dl (65-105)
[2023-02-21] MEDS: LACTATED RINGERS 1,000 ML 150 ML IV CONT (11:51)
--- NOTE | 2023-02-21 12:03 | WPDANESEPPF ---
Anes - Initial Pre Proc Eval Procedure: Operation Date: 02/21/23 15:00 Proposed Procedures p Esophagogastroduodenoscopy - Hong Mcintosh MD Date/Time: 02/21/23 12:03 Surgeon: Domitila Phillips PA-C Pre Op Diagnosis: Acute Anemia,Guaiac-Positive Stools,Elevated Trop Patient Data Age: 77 Gender: M Height: 1.78 m Weight: 103.3 kg Last Vital Signs Temp 97.7 F 02/21/23 11:41 Pulse 69 02/21/23 11:41 Resp 20 02/21/23 11:41 BP 121/53 L 02/21/23 11:41 Pulse Ox 100 02/21/23 11:41 O2 Del Method Room Air 02/21/23 11:41 Allergies Allergy/AdvReac Type Severity Reaction Status Date / Time lenalidomide [From Revlimid] Allergy Intermediate Hives Verified 02/21/23 11:37 niacin Allergy Intermediate Hives Verified 02/21/23 11:37 NSAIDS (Non-Steroidal Allergy Mild Unknown Verified 02/21/23 11:37 Anti-Inflamma Home Medications Medication Instructions Recorded Confirmed Type atorvastatin 80 mg tablet 80 mg PO DAILY #90 tabs 02/09/19 02/20/23 Rx pen needle, diabetic 32 gauge x #100 ea 02/09/19 12/24/22 Rx /32 (BD Ultra-Fine Haven Pen Needle) amiodarone 200 mg tablet 200 mg PO DAILY 04/22/19 02/20/23 History ezetimibe 10 mg tablet (Zetia) 10 mg PO DAILY 04/22/19 02/20/23 History furosemide 20 mg tablet (Lasix) 20 mg PO EVERY OTHER DAY 04/22/19 02/20/23 History ixazomib 4 mg capsule (Ninlaro) See Rx Instructions PO .COMPLEX 04/22/19 02/20/23 History nitroglycerin 0.4 mg sublingual 0.4 mg buccal DIRECTED PRN 04/22/19 02/20/23 History tablet (Nitrostat) Chest Pain spironolactone 25 mg tablet 25 mg PO DAILY 04/22/19 02/20/23 History apixaban 5 mg tablet (Eliquis) 5 mg PO BID 07/09/21 02/20/23 History dulaglutide 1.5 mg/0.5 mL 3 mg subcut WEEKLY 07/09/21 02/20/23 History subcutaneous pen injector (Trulicity) empagliflozin 25 mg tablet 25 mg PO DAILY 07/09/21 02/20/23 History (Jardiance) gabapentin 300 mg capsule 300 mg PO QPM 07/09/21 02/20/23 History gabapentin 800 mg tablet 800 mg PO QAM 07/09/21 02/20/23 History oxycodone-acetaminophen 5 mg-325 1 tablet PO Q6H PRN Pain 07/09/21 02/20/23 History mg tablet acyclovir 400 mg tablet 400 mg PO .PM PRN Rash 12/23/22 02/20/23 History calcitriol 0.25 mcg capsule 0.25 mcg PO 3XW #45 caps 12/23/22 02/20/23 Rx cholecalciferol (vitamin D3) 50 50 mcg PO DAILY 12/23/22 02/20/23 History mcg (2,000 unit) capsule insulin glargine U-300 conc 300 50 unit subcut DAILY 12/23/22 02/20/23 History unit/mL (1.5 mL) subcutaneous pen (Toujeo SoloStar U-300 Insulin) insulin lispro 100 unit/mL 12 unit subcut TIDWMEAL 12/23/22 02/20/23 History subcutaneous pen (Humalog KwikPen (U-100) Insulin) Laboratory Tests 02/20/23 02/20/23 02/20/23 13:19 17:22 19:17 WBC RBC Hgb 8.2 L g/dL 7.9 L g/dL (14.0-18.0) (14.0-18.0) Hct 28.4 L % 27.6 L % (42.0-52.0) (42.0-52.0) MCV MCH MCHC RDW Plt Count MPV Immature Gran % (Auto) Neut % (Auto) Lymph % (Auto) [place] % (Auto) Eos % (Auto) Baso % (Auto) Lymph # (Auto) [place] # (Auto) Eos # (Auto) Baso # (Auto) Abs Immat Gran (auto) Absolute Neuts (auto) Absolute Nucleated RBC Nucleated RBC % Platelet Estimate Poikilocytosis Anisocytosis Ovalocytes Crenated Cell Schistocytes Sodium Potassium Chloride Carbon Dioxide Anion Gap BUN Creatinine Estim Creat Clear Calc Estimated GFR Glucose POC Capillary Glucose 161 H mg/dl (65-105) Calcium Total Bilirubin AST ALT
[2023-02-21] MEDS: SIMETHICONE ORAL SUSPENSION 20 MG/0.3 ML 30 ML BOTTLE 0.6 ML PO (12:37)
--- NOTE | 2023-02-21 13:56 | PM.IMPN ---
Progress Note: A&P Assessment and Plan (1) Gastric AVM: Code(s): K31.819 - Angiodysplasia of stomach and duodenum without bleeding Status: Acute Assessment and Plan: Patient underwent EGD this morning which revealed a gastric AVM that was cauterized -per GI plan to hold anticoagulation at least until Friday. Patient has history of multiple DVTs but does have an IVC filter -GI consulted (2) Gastric antral vascular ectasia (watermelon stomach): Code(s): K31.819 - Angiodysplasia of stomach and duodenum without bleeding Status: Acute Assessment and Plan: As above (3) Newly recognized murmur: Code(s): R01.1 - Cardiac murmur, unspecified Status: Acute Assessment and Plan: Patient states he has no history of this. Could be more recognizable due to anemia but patient continues to have dyspnea on exertion -obtain echo (4) Acute on chronic anemia: Code(s): D64.9 - Anemia, unspecified Status: Acute Assessment and Plan: Patient has received 1 unit of blood and hemoglobin is stable -Holding Eliquis . (5) Chest pain: Code(s): R07.9 - Chest pain, unspecified Status: Acute Assessment and Plan: Resolved -troponins flat, likely type 2 infarction due to severe anemia. -cardiology consulted -echo pending (6) Type 2 diabetes mellitus with diabetic neuropathy, unspecified: Code(s): E11.40 - Type 2 diabetes mellitus with diabetic neuropathy, unspecified Status: Acute Assessment and Plan: Last glucose 139 -will decrease insulin here since pts diet will likely be more managed -hold oral dm medications -start sliding scale (7) H/O deep venous thrombosis: Code(s): Z86.718 - Personal history of other venous thrombosis and embolism Status: Acute Assessment and Plan: Because of GI bleed patient Eliquis is put on hold. Will monitor closely. -pt has ivc filter (8) Essential (primary) hypertension: Code(s): I10 - Essential (primary) hypertension Status: Acute Assessment and Plan: last bp 109/60 (9) Chronic obstructive pulmonary disease, unspecified: Code(s): J44.9 - Chronic obstructive pulmonary disease, unspecified Status: Acute Assessment and Plan: Stable on current medications, continue current treatment . (10) Multiple myeloma: Code(s): C90.00 - Multiple myeloma not having achieved remission Status: Acute Assessment and Plan: Stable on current medications, continue current treatment. (11) CKD (chronic kidney disease) stage 4, GFR 15-29 ml/min: Code(s): N18.4 - Chronic kidney disease, stage 4 (severe) Status: Acute Assessment and Plan: Stable on current medication, continue current treatment. Plan Patient is full code. DVT prophylaxis is put on hold because of bleeding. . Time Spent With Patient Time with patient: 25 - 35 minutes Subjective Date/time seen: 02/21/23 13:56 Interval history: Pt is a 77-year-old male here for GI bleed. Patient was seen today and is doing better. He has no further chest pains. He does have dyspnea on exertion which is better but still not normal for him. He has no history of being told that he has a murmur. He has noted some lower extremity swelling lately. His last bowel movement was this morning and is still black. He has not eaten anything yet but is looking forward to it. He does see Dr. Orona and has a IVC filter Review of Systems Review of Systems: All systems reviewed & are unremarkable except as noted in HPI and below Exam Narrative: General: Well developed well nourished patient in NAD HEENT: normocephalic Neck: supple Neuro: Alert and oriented x4 CV:RRR with loud systolic murmur Resp:CTA Abd: Soft, non distended. No pain to palpation. Positive bowel sounds Extremities: Bilateral extremity swell
[2023-02-21] MEDS: PERFLUTREN LIPID MICROSPHERES 1.5 ML VIAL DILUTED TO 10 ML TOTAL VOLUME IV PUSH (14:30)
--- NOTE | 2023-02-21 15:55 | IVDEFINITY ---
Prior to administration of IV Definity the patient was educated on the risks and benefits of the imaging enhancing agent including potential adverse side effects. The patient verbalized understanding. Allergies were verified. No exclusion criteria were identified and at least one of the following inclusion criteria were met: 1) physician request, 2) patient technically difficult to image (per the [place] [employer] guidelines of two or more segments not discernable within the apical view), or 3) questionable left ventricular function. ?
[2023-02-21 16:36] LABS: Glucose Point of Care 231 mg/dl (65-105)
[2023-02-21] MEDS: GABAPENTIN 300 MG CAPSULE PO (20:26)
[2023-02-21 22:28] LABS: Glucose Point of Care 196 mg/dl (65-105)
[2023-02-22] VITALS: BP 108/49; PULSE 71; RESP 18; TEMP 36.9; O2SAT 98
[2023-02-22 04:00] VITALS: BP 121/65; PULSE 69; RESP 18; TEMP 36.6; O2SAT 99
[2023-02-22 06:24] LABS: Hematocrit 30.4 % (42.0-52.0); Hemoglobin 8.6 g/dL (14.0-18.0)
[2023-02-22 08:00] VITALS: BP 141/73; PULSE 75; RESP 10; TEMP 36.6; O2SAT 99
[2023-02-22 08:33] LABS: Glucose Point of Care 151 mg/dl (65-105)
--- NOTE | 2023-02-22 08:41 | PM.DS ---
DS: Admitting Diagnosis Discharge Date 02/22/23 Admitting Diagnosis - Acute on chronic anemia. - Chest pain - T2DM - H/O DVT - Essential HTN - afib - COPD - Multiple Myeloma - CKD DS: Discharge Diagnosis Discharge Diagnosis (1) Acute on chronic anemia: Code(s): D64.9 - Anemia, unspecified Status: Acute Assessment and Plan: - Underwent endoscopy with multiple AVM noted one bleeding which was cauterized. Also found G.A.B.E. - Hgb has improved s/p procedure and transfusions, now stable >48 hours with hgb >8 today. - On protonix which will continue on discharge. - Repeat cbc mid next week. - Instructed on bleeding precautions and s/s to watch for. (2) Atrial fibrillation: Code(s): I48.91 - Unspecified atrial fibrillation Status: Acute Assessment and Plan: - Well controlled, eliquis is held in light of bleeding, ok to resume eliquis on 02/23/23. - Patient instructed on medication resumption. (3) Chest pain: Code(s): R07.9 - Chest pain, unspecified Status: Acute Assessment and Plan: Resolved s/p transfusion. Mild elevation of troponin most likely demand ischemia from anemia. Cardiology has consulted and no further workup at this time is warranted. (4) Multiple myeloma: Code(s): C90.00 - Multiple myeloma not having achieved remission Status: Acute Assessment and Plan: - Cont. to follow with hematology/oncology. (5) Chronic kidney disease, stage 3b: Code(s): N18.32 - Chronic kidney disease, stage 3b Status: Acute Assessment and Plan: - Stable. (6) Newly recognized murmur: Code(s): R01.1 - Cardiac murmur, unspecified Status: Acute Assessment and Plan: - Echo with noted aortic valve stenosis. Plan Discharge to home with close f/u in place. DS: Summary Hospital Course Reason for hospitalization: Anemia, chest pain Hospital Course: Cal Yang presented with abnormal lab values, anemia with hgb of 6.4 on outpatient labs. He was transfused PRBC and had EGD performed with findings of multiple AVM and G.A.V.E. There was cautery of a bleeding avm. He has had stable hgb at 7.0 or greater than 48 hours. The chest pain resolved with transfusion. There were mild troponin elevations which were not uptrending. EKG was without acute ischemic changes. Status at Discharge Cognitive/behavioral status at discharge: AO4. Time Spent with Patient Time attestation: Total time spent providing and/or coordinating discharge services: >35 minutes. Exam Narrative: GENERAL APPEARANCE: Appears to be in no acute distress. HEAD: normocephalic atraumatic EYES: PERRL, EOMI. Vision grossly intact. ENT: Hearing grossly intact, no nasal discharge NECK: Neck supple, trachea midline. CARDIAC: Normal S1/S2. Rhythm is regular. No murmurs, rubs, or gallops. No cyanosis or pallor. Extremities are warm and well perfused. LUNGS: Clear to auscultation without rales, rhonchi, wheezing or diminished breath sounds. Respirations even and unlabored. ABDOMEN: BS positive x 4 quadrants. Soft, nondistended, nontender. No guarding or rebound. MSK: No joint tenderness/swelling, fair strength in all extremities. PERIPHERAL VASCULAR: Peripheral pulses palpable. Normal perfusion, cap refill <2 seconds. No edema. NEURO: Follows commands. No focal deficits. SKIN: Utting without lesions or eruptions. PSYCH: Stable, no paranoia or delusional thinking. DS: Data Data Completed and Pending Labs on day of discharge: Labs from last 24 hours 02/22/23 02/22/23 02/21/23 08:28 05:54 21:23 WBC RBC Hgb 8.6 L Hct 30.4 L MCV MCH MCHC RDW Plt Count MPV Immature Gran % (Auto) Neut % (Auto) Lymph % (Auto) [place] % (Auto) Eos % (Auto) Baso % (Auto) Lymph # (Auto) [place] # (Auto) Eos # (Auto) Baso # (Auto) Abs Immat Gran (auto) Absolute Neuts (auto) Absolute Nuc
[2023-02-22] MEDS: PANTOPRAZOLE SODIUM IV 40 MG VIAL IV PUSH (09:22)
[2023-02-22] MEDS: CHOLECALCIFEROL 1,000 UNITS TABLET 2000 UNITS PO (09:22)
[2023-02-22 09:23] VITALS: PULSE 70
[2023-02-22] MEDS: EZETIMIBE 10 MG TABLET PO (09:23)
[2023-02-22] MEDS: AMIODARONE HCL 200 MG TABLET PO (09:23)
[2023-02-22] MEDS: oxyCODONE/ACETAMINOPHEN (*CRX) 5-325 MG TABLET 1 TABLET PO (09:23)
[2023-02-22] MEDS: GABAPENTIN 400 MG CAPSULE 800 MG PO (09:23)
[2023-02-22] MEDS: ATORVASTATIN 40 MG TABLET 80 MG PO (09:23)
[2023-02-22] MEDS: SPIRONOLACTONE 25 MG TABLET PO (09:24)
[2023-02-22 11:38] LABS: Glucose Point of Care 276 mg/dl (65-105)
[2023-02-22 12:00] VITALS: BP 136/56; PULSE 92; RESP 10; TEMP 36.6; O2SAT 100
--- NOTE | 2023-02-22 12:11 | WPDANESPN ---
Anes - Prog Note Post-Op Date/Time: 02/22/23 12:11 Cardiovascular status: normal Respiratory status: normal Airway patency: baseline Mental status: baseline Post-Op hydration status: normal Vital Signs: Last Vital Signs Temp 36.6 C 02/22/23 08:00 Pulse 70 02/22/23 09:23 Resp 10 L 02/22/23 08:00 BP 141/73 H 02/22/23 08:00 Pulse Ox 99 02/22/23 08:00 O2 Del Method Room Air 02/21/23 20:00 Pain Score (VAS): 2/10 I/O: Intake & Output 02/21/23 02/22/23 02/22/23 23:59 07:59 15:59 Intake Total 480 300 480 Balance 480 300 480 Laboratory Tests 02/22/23 05:54 02/21/23 06:30 02/21/23 02/21/23 02/22/23 16:32 21:23 05:54 Hgb 8.6 L Hct 30.4 L POC Capillary Glucose 231 H 196 H 02/22/23 02/22/23 08:28 11:31 Hgb Hct POC Capillary Glucose 151 H 276 H Post-procedural complaints: none Patient Feedback: Patient satisfied with anesthetic care.
== END 2023-02-22 14:00 | disposition home or self-care (01) | DRG 378 ==
LOC: ANHED 02-20 02:41 → ANHIMU 02-20 05:51 → ANHCPC 02-20 08:43 → ANH3MEDSUR 02-20 17:29
PROVIDERS: Internal Medicine; Internal Medicine Gastroenterology; Physician Assistant; Admitting Provider General Practice; Emergency Provider Emergency Medicine; PCP Family Medicine; Visit Provider Nurse Practitioner Family
PROC: 0DJ08ZZ Inspection of Upper Intestinal Tract, Via Natural or Artificial Opening Endoscopic (ICD-10-PCS; CPT 43235; principal; 2023-02-21 15:00)
DX: K31.811 Angiodysplasia of stomach and duodenum with bleeding (principal); C90.00 Multiple myeloma not having achieved remission; I13.0 Hypertensive heart and chronic kidney disease with heart failure and stage 1 through stage 4 chronic kidney disease, or unspecified chronic kidney disease; I42.8 Other cardiomyopathies; N18.4 Chronic kidney disease, stage 4 (severe); D62 Acute posthemorrhagic anemia; I24.89 Other forms of acute ischemic heart disease; K31.819 Angiodysplasia of stomach and duodenum without bleeding; I50.9 Heart failure, unspecified; J44.9 Chronic obstructive pulmonary disease, unspecified; E11.22 Type 2 diabetes mellitus with diabetic chronic kidney disease; E11.42 Type 2 diabetes mellitus with diabetic polyneuropathy; I48.91 Unspecified atrial fibrillation; I25.10 Atherosclerotic heart disease of native coronary artery without angina pectoris; E78.49 Other hyperlipidemia; Z86.718 Personal history of other venous thrombosis and embolism; Z90.49 Acquired absence of other specified parts of digestive tract; Z96.659 Presence of unspecified artificial knee joint; Z87.891 Personal history of nicotine dependence; Z79.01 Long term (current) use of anticoagulants; Z68.32 Body mass index [BMI] 32.0-32.9, adult; E66.9 Obesity, unspecified; R01.1 Cardiac murmur, unspecified; I35.0 Nonrheumatic aortic (valve) stenosis
CPT/HCPCS: 36415; 36430; 71046; 80048; 80053; 82232; 82784; 82948; 83690; 84153; 84155; 84165; 84484; 85014; 85018; 85025; 85610; 85730; 86850; 86900; 86901; 86920; 93005; 96361; 99285; A9270; C8929; C9113; G0378; J1815; J2704; J7050; J7120; P9016; Q9957

== ENCOUNTER 2023-02-25 12:26 | Outpatient (CLI) | payer MEDICARE, SELFPAY ==
[2023-02-25 13:03] LABS: Hematocrit 32.8 % (42.0-52.0); Hemoglobin 9.2 g/dL (14.0-18.0); Mean Corpuscular Hemoglobin 26.1 pg (26-34); Mean Corpuscular Volume 92.9 fl (80-100); Mean Platelet Volume 10.3 fl (7.4-10.4); Platelet Count Result 198 k/mm3 (150-375); Red Blood Count 3.53 M/mm3 (4.6-6.20); Red Cell Distribution Width 18.8 % (11.5-14.5); White Blood Count 7.2 K/mm3 (4.5-10.0)
== END 2023-02-25 12:27 | disposition home or self-care (01) ==
PROVIDERS: PCP Family Medicine; Visit Provider Nurse Practitioner Family
DX: D64.9 Anemia, unspecified (principal)
CPT/HCPCS: 36415; 85027

== ENCOUNTER 2023-02-28 15:28 | Outpatient (CLI) | payer MEDICARE, SELFPAY ==
[2023-02-28 15:57] LABS: Basophils Percent Auto 0.4 % (0.2-1.2); Eosinophils Absolute Auto 0.2 K/mm3 (0-0.3); Eosinophils Percent Auto 2.1 % (0-4.4); Hematocrit 33.4 % (42.0-52.0); Hemoglobin 9.7 g/dL (14.0-18.0); Immature Granulocyte Absolute 0.03 K/mm3 (0.00-0.031); Immature Granulocyte Percent A 0.4 % (0-0.5); Lymphocytes Absolute Auto 1.23 K/mm3 (0.9-3.2); Lymphocytes Percent Auto 15.5 % (18.3-44.2); Mean Corpuscular Hemoglobin 26.4 pg (26-34); Mean Platelet Volume 10.3 fl (7.4-10.4); Monocytes Absolute Auto 0.8 K/mm3 (0.1-0.6); Monocytes Percent Auto 9.7 % (2.6-8.5); Neutrophils Absolute Auto 5.7 K/mm3 (1.3-6.7); Neutrophils Percent Auto 71.9 % (45.5-73.1); Platelet Count Result 208 k/mm3 (150-375); Red Blood Count 3.67 M/mm3 (4.6-6.20); White Blood Count 7.9 K/mm3 (4.5-10.0)
[2023-02-28 16:06] LABS: Anisocytosis 1+ (NORMAL); Hypochromasia 1+ (NORMAL); Ovalocytes 1+ (NORMAL); Platelet Estimate Adequate (Adequate); Schistocytes None Seen (NORMAL)
== END 2023-02-28 15:29 | disposition home or self-care (01) ==
LOC: ANHLAB 15:30
PROVIDERS: PCP Family Medicine; Visit Provider Internal Medicine Medical Oncology
DX: C90.00 Multiple myeloma not having achieved remission (principal)
CPT/HCPCS: 36415; 85025

== ENCOUNTER 2023-03-20 15:25 | Outpatient (CLI) | payer MEDICARE, SELFPAY ==
[2023-03-20 17:04] LABS: Hematocrit 34.1 % (42.0-52.0); Hemoglobin 9.6 g/dL (14.0-18.0); Mean Corpuscular HGB Conc 28.2 g/dl (32-36); Mean Corpuscular Hemoglobin 28.7 pg (26-34); Mean Corpuscular Volume 101.8 fl (80-100); Mean Platelet Volume 11.1 fl (7.4-10.4); Platelet Count Result 178 k/mm3 (150-375); Red Blood Count 3.35 M/mm3 (4.6-6.20); Red Cell Distribution Width 20.9 % (11.5-14.5); White Blood Count 7.4 K/mm3 (4.5-10.0)
[2023-03-20 17:14] LABS: INR 1.2; Prothrombin Time 16.2 Seconds (11.1-14.7)
== END 2023-03-20 15:26 | disposition home or self-care (01) ==
LOC: ANHLAB 15:29
PROVIDERS: PCP Family Medicine; Visit Provider Nurse Practitioner
DX: K31.819 Angiodysplasia of stomach and duodenum without bleeding (principal); K92.1 Melena; R53.83 Other fatigue; E11.40 Type 2 diabetes mellitus with diabetic neuropathy, unspecified
CPT/HCPCS: 36415; 85027; 85610

== ENCOUNTER 2023-03-26 00:38 | Day surgery (SDC) | payer MEDICARE, SELFPAY ==
--- NOTE | 2023-03-20 11:29 | PC.NURSE ---
Patient called today to do pre-op interview and he tells me he has been having increased fatigue, more general malaise-no energy, despite a good appetite. He states he is also having dark stool the past 3 weeks that have been getting darker black. I did try to get patient to go to the ER to be checked and he and his do not want to have to go to ER it has not been proven to be helpful in the past except to have bruises everywhere I spoke with Miladis Holt PROJECT ADMIN with Dr. Mcintosh and explained his symptoms to her and she is ordering labs for patient to be done today. I did also move him sooner on our Endoscopy schedule to 03/26/23 for EGD.
[2023-03-20 11:41] VITALS: BMI 31.6
--- NOTE | 2023-03-24 12:39 | SUR.PREOP ---
Patient called regarding upcoming procedure. Pt updated on arrival date and time. All questions answered.
--- NOTE | 2023-03-25 14:02 | PM.HPGS ---
History of Present Illness History of Present Illness Consent: Risks, benefits, and alternatives have been discussed and questions answered. Patient agrees to proceed with procedure. 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 He returns now for follow-up and probable further treatment of this condition. Review of Systems Review of Systems: All systems reviewed & are unremarkable except as noted in HPI and below PMFSH Past Medical History Medical History Cardiomyopathy due to hypertension, with heart failure Chronic obstructive pulmonary disease, unspecified CKD (chronic kidney disease) stage 4, GFR 15-29 ml/min Essential (primary) hypertension Fatigue H/O deep venous thrombosis Melena Multiple myeloma Other hyperlipidemia Type 2 diabetes mellitus with diabetic neuropathy, unspecified Surgical History Surgical History History of bilateral carpal tunnel release History of colon resection History of colostomy reversal Hx laparoscopic cholecystectomy Hx of angioplasty Hx of cardiac cath Hx of tonsillectomy Hx of total knee replacement Family History Family History Father Acute myocardial infarction, Onset Age: 72 Mother Acute myocardial infarction, Onset Age: 83 Social History Social History Smoking packs per day: 1.5 Smoking cigarettes per day: 30.0 Years smoked: 25 Smoking pack-years: 37.50 Smoking status: Former smoker Tobacco type: cigarettes Smoking end date: 02/24/90 Alcohol intake: current Drinks per week: 1 Alcohol use details: social Substance use: never Substance use type: does not use Do You Feel Safe in your Home?: Yes Lack of Transportation: No Lack of Food: Never True Current Housing: I Have Housing Concerned About Future Housing: No Difficulty Paying Gas/Electric Bills: No Difficulty Paying for Meds: No Currently Unemployed: No Education: Bachelor's Degree Difficulty w/ Childcare or Family Care: No Living arrangements: with family Gender identity (if verbalized by the patient): Male Spiritual care concerns: No Meds Home Medications and Allergies Home Medications Medication Instructions Recorded Confirmed Type atorvastatin 80 mg tablet 80 mg PO DAILY #90 tabs 02/09/19 03/26/23 Rx pen needle, diabetic 32 gauge x #100 ea 02/09/19 03/20/23 Rx 5/32 (BD Ultra-Fine Haven Pen Needle) amiodarone 200 mg tablet 200 mg PO DAILY 04/22/19 03/26/23 History ezetimibe 10 mg tablet (Zetia) 10 mg PO DAILY 04/22/19 03/26/23 History furosemide 20 mg tablet (Lasix) 20 mg PO EVERY OTHER DAY 04/22/19 03/26/23 History ixazomib 4 mg capsule (Ninlaro) See Rx Instructions PO .COMPLEX 04/22/19 03/26/23 History nitroglycerin 0.4 mg sublingual 0.4 mg buccal DIRECTED PRN 04/22/19 03/26/23 History tablet (Nitrostat) Chest Pain spironolactone 25 mg tablet 25 mg PO DAILY 04/22/19 03/26/23 History apixaban 5 mg tablet (Eliquis) 5 mg PO BID 07/09/21 03/26/23 History dulaglutide 1.5 mg/0.5 mL 3 mg subcut WEEKLY 07/09/21 03/26/23 History subcutaneous pen injector (Trulicity) empagliflozin 25 mg tablet 25 mg PO DAILY 07/09/21 03/26/23 History (Jardiance) gabapentin 300 mg capsule 300 mg PO QPM 07/09/21 03/26/23 History gabapentin 800 mg tablet 800 mg PO QAM 07/09/21 03/26/23 History oxycodone-acetaminophen 5 mg-325 1 tablet PO Q6H PRN Pain 07/09/21 03/26/23 History mg tablet acyclovir 400 mg tablet 400 mg PO .PM PRN Rash 12/23/22 03/26/23 History calcitriol 0.25
[2023-03-26 09:40] VITALS: BP 142/65; PULSE 52; RESP 18; TEMP 36.1; O2SAT 100; BMI 33.1
[2023-03-26] MEDS: LACTATED RINGERS 1,000 ML 150 ML IV CONT (09:43)
--- NOTE | 2023-03-26 10:23 | WPDANESEPPF ---
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 Patient Data Age: 77 Gender: M Height: 1.78 m Weight: 104.8 kg Last Vital Signs Temp 96.9 F L 03/26/23 09:40 Pulse 52 L 03/26/23 09:40 Resp 18 03/26/23 09:40 BP 142/65 H 03/26/23 09:40 Pulse Ox 100 03/26/23 09:40 O2 Del Method Room Air 03/26/23 09:40 Allergies Allergy/AdvReac Type Severity Reaction Status Date / Time lenalidomide [From Revlimid] Allergy Intermediate Hives Verified 03/26/23 09:37 niacin Allergy Intermediate Hives Verified 03/26/23 09:37 NSAIDS (Non-Steroidal Allergy Mild Unknown Verified 03/26/23 09:37 Anti-Inflamma Home Medications Medication Instructions Recorded Confirmed Type atorvastatin 80 mg tablet 80 mg PO DAILY #90 tabs 02/09/19 03/26/23 Rx pen needle, diabetic 32 gauge x #100 ea 02/09/19 03/20/23 Rx /32 (BD Ultra-Fine Haven Pen Needle) amiodarone 200 mg tablet 200 mg PO DAILY 04/22/19 03/26/23 History ezetimibe 10 mg tablet (Zetia) 10 mg PO DAILY 04/22/19 03/26/23 History furosemide 20 mg tablet (Lasix) 20 mg PO EVERY OTHER DAY 04/22/19 03/26/23 History ixazomib 4 mg capsule (Ninlaro) See Rx Instructions PO .COMPLEX 04/22/19 03/26/23 History nitroglycerin 0.4 mg sublingual 0.4 mg buccal DIRECTED PRN 04/22/19 03/26/23 History tablet (Nitrostat) Chest Pain spironolactone 25 mg tablet 25 mg PO DAILY 04/22/19 03/26/23 History apixaban 5 mg tablet (Eliquis) 5 mg PO BID 07/09/21 03/26/23 History dulaglutide 1.5 mg/0.5 mL 3 mg subcut WEEKLY 07/09/21 03/26/23 History subcutaneous pen injector (Trulicity) empagliflozin 25 mg tablet 25 mg PO DAILY 07/09/21 03/26/23 History (Jardiance) gabapentin 300 mg capsule 300 mg PO QPM 07/09/21 03/26/23 History gabapentin 800 mg tablet 800 mg PO QAM 07/09/21 03/26/23 History oxycodone-acetaminophen 5 mg-325 1 tablet PO Q6H PRN Pain 07/09/21 03/26/23 History mg tablet acyclovir 400 mg tablet 400 mg PO .PM PRN Rash 12/23/22 03/26/23 History calcitriol 0.25 mcg capsule 0.25 mcg PO 3XW #45 caps 12/23/22 03/26/23 Rx cholecalciferol (vitamin D3) 50 50 mcg PO DAILY 12/23/22 03/26/23 History mcg (2,000 unit) capsule insulin glargine U-300 conc 300 50 unit subcut DAILY 12/23/22 03/26/23 History unit/mL (1.5 mL) subcutaneous pen (Toujeo SoloStar U-300 Insulin) insulin lispro 100 unit/mL 12 unit subcut TIDWMEAL 12/23/22 03/26/23 History subcutaneous pen (Humalog KwikPen (U-100) Insulin) pantoprazole 40 mg tablet,delayed 40 mg PO QAM 4 weeks #28 tabs 02/22/23 03/26/23 Rx release Patient hx anesthesia problems: none Family hx anesthesia problems: none Results Review: All pre-operative results and documents have been reviewed as part of the pre-operative evaluation. [facility] Past Medical History Medical History Cardiomyopathy due to hypertension, with heart failure Chronic obstructive pulmonary disease, unspecified CKD (chronic kidney disease) stage 4, GFR 15-29 ml/min Essential (primary) hypertension Fatigue H/O deep venous thrombosis Melena Multiple myeloma Other hyperlipidemia Type 2 diabetes mellitus with diabetic neuropathy, unspecified Surgical History Surgical History History of bilateral carpal tunnel release History of colon resection History of colostomy reversal Hx laparoscopic cholecystectomy Hx of angioplasty Hx of cardiac cath Hx of tonsillectomy Hx of total knee replacement Family History Family History Father Acute myocardial infarction, Onset Age: 72 Mother Acute myocardial infarction, Onset Age: 83 Social
[2023-03-26 10:58] VITALS: BP 82/47; PULSE 63; RESP 26; O2SAT 96
[2023-03-26 11:08] VITALS: BP 99/47; PULSE 59; RESP 21; O2SAT 98
[2023-03-26 11:18] VITALS: BP 103/51; PULSE 58; RESP 19; O2SAT 98
== END 2023-03-26 11:29 | disposition home or self-care (01) ==
PROVIDERS: PCP Family Medicine; Visit Provider Internal Medicine Gastroenterology
PROC: 0DJ08ZZ Inspection of Upper Intestinal Tract, Via Natural or Artificial Opening Endoscopic (ICD-10-PCS; CPT 43235; principal; 2023-03-26 10:30)
DX: K31.819 Angiodysplasia of stomach and duodenum without bleeding (principal); D50.0 Iron deficiency anemia secondary to blood loss (chronic); K21.9 Gastro-esophageal reflux disease without esophagitis; I13.0 Hypertensive heart and chronic kidney disease with heart failure and stage 1 through stage 4 chronic kidney disease, or unspecified chronic kidney disease; I50.9 Heart failure, unspecified; I43 Cardiomyopathy in diseases classified elsewhere; E11.22 Type 2 diabetes mellitus with diabetic chronic kidney disease; E11.40 Type 2 diabetes mellitus with diabetic neuropathy, unspecified; N18.4 Chronic kidney disease, stage 4 (severe); E78.2 Mixed hyperlipidemia; J44.9 Chronic obstructive pulmonary disease, unspecified; Z90.49 Acquired absence of other specified parts of digestive tract; Z86.718 Personal history of other venous thrombosis and embolism; Z87.891 Personal history of nicotine dependence; E66.9 Obesity, unspecified; Z68.33 Body mass index [BMI] 33.0-33.9, adult; Z79.01 Long term (current) use of anticoagulants; Z79.85 Long-term (current) use of injectable non-insulin antidiabetic drugs; Z79.84 Long term (current) use of oral hypoglycemic drugs; Z79.891 Long term (current) use of opiate analgesic; Z79.4 Long term (current) use of insulin
CPT/HCPCS: 43270; J2704; J7120

== ENCOUNTER 2023-04-08 03:25 | Inpatient (IN) | payer MEDICARE, SELFPAY ==
[2023-04-08] VITALS (7 sets, daily range): BP systolic 103–159; BP diastolic 57–72; PULSE 51–81; RESP 13–20; TEMP 36.5–37.1; O2SAT 97–100
--- NOTE | ~2023-04-08 | CT_ITS ---
CT of the Abdomen and Pelvis: Indication: Abdominal pain Technique: 2.5 mm axial scans were obtained through the abdomen and pelvis following intravenous adm inistration of 100 cc of Omnipaque 350. Dose reduction technique was used on this scan by utilizing a utomated exposure control and iterative reconstruction technique. The dose-length product (DLP) was 1 105.99 mGy-cm. COMPARISON: 01/01/2022 Findings: Scans through the lung bases are unremarkable. Cholecystectomy clips are present. There is intrahepatic and extra hepatic biliary dilatation, which appears similar to prior exam. Calcified hepatic and splenic granulomas are present. The spleen, panc reas, adrenals and kidneys are within normal limits. There are atherosclerotic calcifications of the aorta. IVC filter present. No lymphadenopathy. There are multiple mildly distended small bowel loops. Large bowel unremarkable. Images through the pelvis were performed. Urinary bladder unremarkable. No pelvic mass evident. No as cites. Impression: Mildly distended small bowel loops raise the possibility of early or partial small bowel obstruction. Correlate with symptomatology. Intrahepatic and extra hepatic biliary dilatation is similar to prior exam, presumably chronic in [place] ure. Reviewed, dictated and finalized at [facility]. NIGHT Impression: Mildly distended small bowel loops raise the possibility of early or partial sm all bowel obstruction. Correlate with symptomatology. Intrahepatic and extra hepatic biliary dilatation is similar to prior exam, pre sumably chronic in nature.
--- NOTE | ~2023-04-08 | XR_ITS ---
EXAMINATION: XR sm bowel follow through DATE: 04/08/2023 14:28 INDICATION: Small bowel obstruction. TECHNIQUE: Oral contrast was administered, and a time course of radiographs of the abdomen was obtain ed. Fluoroscopy of the small bowel was not performed. Fluoroscopy exposure time was 0 minutes. The to viry number of images was 8. COMPARISON: CT abdomen and pelvis 04/08/2023 FINDINGS: There are multiple dilated loops of small bowel. Transit time from the stomach to proximal colon was approximately 2.5 hours. There are changes of posterior fusion procedure in lumbar spine. There is a filter in the inferior vena cava. Surgical clips in the right upper quadrant are likely from cholecys tectomy. IMPRESSION: 1. Persistently dilated small bowel, consistent with adynamic ileus versus distal partial obstruction . Reviewed, dictated and finalized at location [facility]. [employer]OP[employer] IMPRESSION: 1. Persistently dilated small bowel, consistent with adynamic ileus versus dist al partial obstruction.
--- NOTE | ~2023-04-08 | XR_ITS ---
Portable upright view of the abdomen Clinical history: NG tube placement Findings: NG tube in satisfactory position. Bowel gas pattern is nonspecific. No evidence for obstruc tion or free air. No abnormal mass lesion or calcification is seen. Osseous structures are intact. Impression: NG tube in satisfactory position. Reviewed, dictated and finalized at [facility]. OVERHAULER Impression: NG tube in satisfactory position.
[2023-04-08 03:52] LABS: Basophils Percent Auto 0.1 % (0.2-1.2); Eosinophils Percent Auto 0.1 % (0-4.4); Hematocrit 29.6 % (42.0-52.0); Hemoglobin 8.4 g/dL (14.0-18.0); Immature Granulocyte Absolute 0.04 K/mm3 (0.00-0.031); Immature Granulocyte Percent A 0.4 % (0-0.5); Lymphocytes Absolute Auto 0.41 K/mm3 (0.9-3.2); Lymphocytes Percent Auto 4.6 % (18.3-44.2); Mean Corpuscular HGB Conc 28.4 g/dl (32-36); Mean Corpuscular Hemoglobin 26.7 pg (26-34); Mean Platelet Volume 11.6 fl (7.4-10.4); Monocytes Absolute Auto 0.4 K/mm3 (0.1-0.6); Monocytes Percent Auto 4.2 % (2.6-8.5); Neutrophils Absolute Auto 8.1 K/mm3 (1.3-6.7); Neutrophils Percent Auto 90.6 % (45.5-73.1); Platelet Count Result 196 k/mm3 (150-375); Red Blood Count 3.15 M/mm3 (4.6-6.20); Red Cell Distribution Width 16.9 % (11.5-14.5)
[2023-04-08 04:01] LABS: Alanine Aminotransferase 21 U/L (6-50); Albumin Level 3.8 g/dL (3.5-5.1); Alkaline Phosphatase 100 U/L (38-126); Anion Gap 7 mmol/L (8-16); Aspartate Amino Transferase 30 U/L (17-59); Blood Urea Nitrogen 23 mg/dL (9-20); Calcium 9.3 mg/dL (8.4-10.2); Carbon Dioxide 22 mmol/L (22-30); Chloride 107 mmol/L (98-107); Estimated CRCL calculation 43 ml/min; Estimated Glomerular Filt Rate 45; Glucose 201 mg/dL (65-110); Lipase 138 U/L (23-300); Potassium 4.4 mmol/L (3.4-5.0); Sodium 136 mmol/L (137-145)
[2023-04-08 04:02] LABS: Hypochromasia 1+ (NORMAL); Platelet Estimate Adequate (Adequate); Schistocytes None Seen (NORMAL)
[2023-04-08] MEDS: SODIUM CHLORIDE 0.9% IV 1,000 ML 999 ML IV CONT (04:07)
[2023-04-08] MEDS: ACETAMINOPHEN 500 MG TABLET 1000 MG PO (04:07)
[2023-04-08] MEDS: ONDANSETRON INJ 4 MG/2 ML VIAL IV PUSH (04:07)
[2023-04-08] MEDS: HYDROmorphone HCL INJ (*CRX) 1 MG/ML SYR 0.5 MG IV PUSH (04:07)
[2023-04-08 05:18] LABS: Appearance Urine Clear (Clear); Bacteria Urine None Seen /hpf; Bilirubin Urine Negative (Negative); Blood Urine Negative (Negative); Color Urine Yellow (Yellow); Glucose Urine UA 3+ mg/dL (Negative); Ketones Urine Negative (Negative); Leukocyte Esterase Ur Negative LEU/UL (Negative); Nitrate Urine Negative (Negative); Non Pathogenic Casts 0-2; Protein Urine Trace mg/dL (Negative); RBC Urine 0-2 /hpf (0-2); Specific Grav Ur 1.025 (1.001-1.035); Squamous Epithelial Cell Urine None seen /hpf (Few); Urobilinogen Urine 0.2 mg/dL (<2.0); WBC Urine 0-5 /hpf
[2023-04-08 05:30] LABS: Add Urine Microscopic? YES
--- NOTE | 2023-04-08 06:22 | ED.GENADULT ---
HPI - General Adult General Chief complaint: Abdominal Pain Stated complaint: lower abd pain Time Seen by Provider: 04/08/23 03:34 History of Present Illness HPI narrative: This is a 77-year-old male presenting ED for chief complaint of abdominal pain. Patient has been having intermittent sharp pains in his abdomen for the last week. However over the last several days it has become constant Patient has been having nausea vomiting. Denies fever chills chest pain with breathing. Last bowel movement was yesterday. He has not had a bowel movement today believes he may have passed gas once or twice. Related Data Home Medications Medication Instructions Recorded Confirmed amiodarone 200 mg tablet 200 mg PO DAILY 04/22/19 03/26/23 ezetimibe 10 mg tablet (Zetia) 10 mg PO DAILY 04/22/19 03/26/23 furosemide 20 mg tablet (Lasix) 20 mg PO EVERY OTHER DAY 04/22/19 03/26/23 ixazomib 4 mg capsule (Ninlaro) See Rx Instructions PO .COMPLEX 04/22/19 03/26/23 nitroglycerin 0.4 mg sublingual 0.4 mg buccal DIRECTED PRN 04/22/19 03/26/23 tablet (Nitrostat) Chest Pain spironolactone 25 mg tablet 25 mg PO DAILY 04/22/19 03/26/23 apixaban 5 mg tablet (Eliquis) 5 mg PO BID 07/09/21 03/26/23 dulaglutide 1.5 mg/0.5 mL 3 mg subcut WEEKLY 07/09/21 03/26/23 subcutaneous pen injector (Trulicity) empagliflozin 25 mg tablet 25 mg PO DAILY 07/09/21 03/26/23 (Jardiance) gabapentin 300 mg capsule 300 mg PO QPM 07/09/21 03/26/23 gabapentin 800 mg tablet 800 mg PO QAM 07/09/21 03/26/23 oxycodone-acetaminophen 5 mg-325 1 tablet PO Q6H PRN Pain 07/09/21 03/26/23 mg tablet acyclovir 400 mg tablet 400 mg PO .PM PRN Rash 12/23/22 03/26/23 cholecalciferol (vitamin D3) 50 50 mcg PO DAILY 12/23/22 03/26/23 mcg (2,000 unit) capsule insulin glargine U-300 conc 300 50 unit subcut DAILY 12/23/22 03/26/23 unit/mL (1.5 mL) subcutaneous pen (Toujeo SoloStar U-300 Insulin) insulin lispro 100 unit/mL 12 unit subcut TIDWMEAL 12/23/22 03/26/23 subcutaneous pen (Humalog KwikPen (U-100) Insulin) Allergies Allergy/AdvReac Type Severity Reaction Status Date / Time lenalidomide [From Revlimid] Allergy Intermediate Hives Verified 04/08/23 03:38 niacin Allergy Intermediate Hives Verified 04/08/23 03:38 NSAIDS (Non-Steroidal Allergy Mild Unknown Verified 04/08/23 03:38 Anti-Inflamma PMFSH Past Medical History Medical History Cardiomyopathy due to hypertension, with heart failure Chronic obstructive pulmonary disease, unspecified CKD (chronic kidney disease) stage 4, GFR 15-29 ml/min Essential (primary) hypertension Fatigue H/O deep venous thrombosis Melena Multiple myeloma Other hyperlipidemia Type 2 diabetes mellitus with diabetic neuropathy, unspecified Surgical History Surgical History History of bilateral carpal tunnel release History of colon resection History of colostomy reversal Hx laparoscopic cholecystectomy Hx of angioplasty Hx of cardiac cath Hx of tonsillectomy Hx of total knee replacement Family History Family History Father Acute myocardial infarction, Onset Age: 72 Mother Acute myocardial infarction, Onset Age: 83 Social History Social History Smoking packs per day: 1.5 Smoking cigarettes per day: 30.0 Years smoked: 25 Smoking pack-years: 37.50 Smoking status: Former smoker Tobacco type: cigarettes Smoking end date: 02/24/90 Alcohol intake: current Drinks per week: 1 Alcohol use details: social Substance use: never Substance use type: does not use Do You Feel Safe in your Home?: Yes Lack of Transportation: No Lack of Food: Never True Current Housing: I Have Housing Concerned About Future Housing: No Difficulty Paying Gas/Electric Bills: No Diffi
--- NOTE | 2023-04-08 07:09 | PC.NURSE ---
RN report to [facility]
--- NOTE | 2023-04-08 07:57 | ADMGEN ---
This patient, Cal Yang, was admitted to [facility] Room 328-01. Patient/family oriented to hospital policies and general routines including ID bracelet, bed and alarms, visiting hours, pain management, procedures, bathroom and other care routines, personal items, smoking policy, room service/diet, and visiting hours. Information on how to activate the Rapid Response Team has been discussed. Patient/Family are encouraged to report perceived risks to care and to ask questions if they do not understand what they are told or what they should do.
--- NOTE | 2023-04-08 08:25 | PM.IMHP ---
H&P: HPI History of Present Illness Date/Time: 04/08/23 08:25 Chief Complaint: 1. Abdominal pain 2. Nausea and Vomiting Narrative: Cal Yang is a 77 yo M with a mHx significant for colectomy 2/2 diverticulitis, obesity, Atrial fibrillation, IDDM, MM, COPD, DVT, AVM/GAVE, Anemia, Prostate Ca Over the last week, he has been experiencing lower abdominal pains; these are sharp/cramping, non-radiating, rated 7-10, aggravated by meals, alleviated by fasting, associated wtih nausea and vomiting; his stools have been dark due to AVM/GAVE. He denies fevers, chills, diarrhea, skin/joint pain; he attests to sweats. He does not smoke/chew tobacco, drink alcohol or consume recreational drugs; his family Hx is not contributory to the PC At the bedside, he has an NGT in place; bowel sounds are hypoactive. Significant findings: CTAP: Mildly distended small bowel loops raise the possibility of early or partial small bowel obstruction. WBC 9 Hb 8.3 PLTs 194 INR 1.2 Na 136 K 4.4 Cl 107 HCO3 22 AG 7 BUN 23 Cr. 1.5 GFR 45 UA: Unremarkable He will be admitted, evaluated and managed for partial SBO; an NGT was placed, GS was consulted. Review of Systems Constitutional: Constitutional: Reports fatigue Eyes: Eyes: Reports no additional eye complaints ENT: Reports system reviewed and no additional complaints, except as documented and Denies dysphagia Cardiovascular: Cardiovascular: Denies chest pain, Denies pedal edema and Denies leg edema Respiratory: Respiratory: Reports no additional respiratory complaints, Denies cough and Denies dyspnea Gastrointestinal: Gastrointestinal: Reports abdominal pain, Reports melena and Reports nausea Musculoskeletal: Musculoskeletal: Denies back pain, Denies myalgias and Denies arthralgias Integumentary/Breasts: Skin/Breast: Reports dry skin Neurologic: Denies abnormal gait, Denies confusion and Denies headache(s) Psychiatric: Psychiatric: Reports no additional psychiatric complaints [facility] Past Medical History Medical History (Updated 04/08/23 @ 14:41 by Júnior Garcia MD) Anemia Cardiomyopathy due to hypertension, with heart failure Chronic obstructive pulmonary disease, unspecified CKD (chronic kidney disease) stage 4, GFR 15-29 ml/min Essential (primary) hypertension Fatigue H/O deep venous thrombosis Melena Multiple myeloma Other hyperlipidemia Type 2 diabetes mellitus with diabetic neuropathy, unspecified Surgical History Surgical History History of bilateral carpal tunnel release History of colon resection History of colostomy reversal Hx laparoscopic cholecystectomy Hx of angioplasty Hx of cardiac cath Hx of tonsillectomy Hx of total knee replacement Family History Family History Father Acute myocardial infarction, Onset Age: 72 Mother Acute myocardial infarction, Onset Age: 83 Social History Social History Smoking packs per day: 1.5 Smoking cigarettes per day: 30.0 Years smoked: 25 Smoking pack-years: 37.50 Smoking status: Former smoker Tobacco type: cigarettes Smoking end date: 02/24/90 Alcohol intake: current Drinks per week: 4 Alcohol use details: social Substance use: never Substance use type: does not use Do You Feel Safe in your Home?: Yes Lack of Transportation: No Lack of Food: Never True Current Housing: I Have Housing Concerned About Future Housing: No Difficulty Paying Gas/Electric Bills: No Difficulty Paying for Meds: No Currently Unemployed: No Education: High School Diploma/GED Difficulty w/ Childcare or Family Care: No Living arrangements: with family Gender identity (if verbalized by the patient): Male Spiritual care concerns: No Meds Home Medications and Allergies Home Medications
[2023-04-08 08:49] LABS: Basophils Percent Auto 0.1 % (0.2-1.2); Hematocrit 29.6 % (42.0-52.0); Hemoglobin 8.3 g/dL (14.0-18.0); Immature Granulocyte Absolute 0.04 K/mm3 (0.00-0.031); Immature Granulocyte Percent A 0.4 % (0-0.5); Lymphocytes Absolute Auto 0.74 K/mm3 (0.9-3.2); Lymphocytes Percent Auto 8.2 % (18.3-44.2); Mean Corpuscular Hemoglobin 26.6 pg (26-34); Mean Corpuscular Volume 94.9 fl (80-100); Mean Platelet Volume 12.1 fl (7.4-10.4); Monocytes Absolute Auto 0.5 K/mm3 (0.1-0.6); Monocytes Percent Auto 5.6 % (2.6-8.5); Neutrophils Absolute Auto 7.7 K/mm3 (1.3-6.7); Neutrophils Percent Auto 85.7 % (45.5-73.1); Platelet Count Result 194 k/mm3 (150-375); Red Blood Count 3.12 M/mm3 (4.6-6.20)
[2023-04-08 08:51] LABS: Hemoglobin A1C 5.2 % (<5.7)
[2023-04-08] MEDS: SODIUM CHLORIDE 0.9% IV 1,000 ML 100 ML IV CONT ×2 (08:54→20:05)
[2023-04-08] MEDS: HYDROmorphone HCL INJ (*CRX) 1 MG/ML SYR 0.2 MG IV PUSH (08:55)
[2023-04-08 08:58] LABS: INR 1.2; Prothrombin Time 15.9 Seconds (11.1-14.7)
[2023-04-08 08:59] LABS: Partial Thromboplastin Time 31.7 SECONDS (22.3-36.8)
--- NOTE | 2023-04-08 09:48 | PM.CNGS ---
Assessment and Plan Assessment and plan (1) SBO (small bowel obstruction): Code(s): K56.609 - Unspecified intestinal obstruction, unspecified as to partial versus complete obstruction Status: Acute Assessment and Plan: CT showed partial/early small bowel obstruction. Patient has had significant abdominal surgeries that could cause intraabdominal adhesions. His abdominal exam is benign and he is passing some flatus this morning. Continue conservative treatment for now with NG tube decompression, bowel rest, IV fluids, and analgesics. Will get a water-soluble small bowel follow through to further assess the obstruction. If the SBFT is negative, then we could remove his NG tube and start a liquid diet. Discussed with the patient that if he has evidence of a high-grade small bowel obstruction that does not improve with conservative treatment, then we would have to consider surgical exploration. He has multiple co-morbidities that would increase his risks for surgery. Will continue to follow along closely. (2) Atrial fibrillation: Code(s): I48.91 - Unspecified atrial fibrillation Status: Acute (3) Multiple myeloma: Code(s): C90.00 - Multiple myeloma not having achieved remission Status: Acute (4) Chronic kidney disease, stage 3b: Code(s): N18.32 - Chronic kidney disease, stage 3b Status: Acute (5) Cardiomyopathy due to hypertension, with heart failure: Code(s): I11.0 - Hypertensive heart disease with heart failure; I43 - Cardiomyopathy in diseases classified elsewhere Status: Acute (6) Chronic obstructive pulmonary disease, unspecified: Code(s): J44.9 - Chronic obstructive pulmonary disease, unspecified Status: Acute (7) Anticoagulant long-term use: Code(s): Z79.01 - halfway (current) use of anticoagulants Status: Acute Assessment and Plan: Eliquis on hold and Heparinn drip started by Hospitalist. (8) H/O deep venous thrombosis: Code(s): Z86.718 - Personal history of other venous thrombosis and embolism Status: Acute Assessment and Plan: Multiple previous DVTs/PE. Takes Eliquis, which is on hold. (9) Prostate CA: Code(s): C61 - Malignant neoplasm of prostate Status: Acute Assessment and Plan: Treated with radiation therapy years ago and recently had a slowly rising PSA, and was treated with cryotherapy and ablation. (10) Anemia: Code(s): D64.9 - Anemia, unspecified Status: Chronic Assessment and Plan: Anemia appears stable compared to recent labs from January and February. 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 He is still reporting black stools that are unchanged. Will continue IV Protonix while he is NPO. Plan I have discussed the patient's case and plan of care with Dr. Castaneda. History of Present Illness Consult details Consult date: 04/08/23 Reason for consult: other (Small-bowel obstruction) Requesting physician: Mack Lane MD Narrative: This is a 77-year-old man with a history of COPD, multiple myeloma, diabetes mellitus type 2, multiple previous DVTs, atrial fibrillation on chronic anticoagulation, anemia, and mild aortic stenosis, who presented to the emergency department early this morning with complaints of abdominal pain. He reports over the last week noticing some very mild episodes of intermittent cramping abdominal pain across his lower abdomen. This would come and go and he denies any pattern to his pain. He also reports constipation over the past week. He was taking Colace daily and also had MiraLax on 3 different occasions. After taking MiraLax, his bowels would move. Through the end of the week, he fell his constipation was improving. Last night around 9:00 p.m., he reports an onset of lower abdominal pain. This was similar to his previous intermittent episodes, but much more severe and per
[2023-04-08 09:51] LABS: Anisocytosis 1+ (NORMAL); Hypochromasia 1+ (NORMAL); Platelet Estimate Adequate (Adequate); Poikilocytosis 1+ (NORMAL); Schistocytes Rare (NORMAL)
[2023-04-08] MEDS: PANTOPRAZOLE SODIUM IV 40 MG VIAL IV PUSH (10:29)
[2023-04-08] MEDS: HEPARIN SOD/D5W 100 UNITS/ML 25,000 UNITS/250 ML BAG 15 UNITS IV CONT (10:35)
--- NOTE | 2023-04-08 10:45 | PC.NURSE ---
pt to radiology for small bowel series
--- NOTE | 2023-04-08 12:59 | PC.NURSE ---
pt returned from radiology
[2023-04-08 14:00] LABS: Glucose Point of Care 180 mg/dl (65-105)
[2023-04-08 16:30] LABS: Glucose Point of Care 182 mg/dl (65-105)
[2023-04-08 17:23] LABS: Partial Thromboplastin Time 60.5 SECONDS (22.3-36.8)
[2023-04-08] MEDS: GABAPENTIN 300 MG CAPSULE PO (20:05)
[2023-04-08] MEDS: APIXABAN 5 MG TABLET PO (20:05)
[2023-04-08] MEDS: INSULIN GLARGINE (*BKC) 100 UNITS/ML 15 UNITS SUB-Q (20:24)
[2023-04-08 21:02] LABS: Glucose Point of Care 216 mg/dl (65-105)
[2023-04-09 06:00] VITALS: BP 105/59; PULSE 71; RESP 14; TEMP 36.6; O2SAT 100
[2023-04-09 06:32] LABS: Basophils Percent Auto 0.4 % (0.2-1.2); Eosinophils Absolute Auto 0.2 K/mm3 (0-0.3); Eosinophils Percent Auto 2.9 % (0-4.4); Hematocrit 28.5 % (42.0-52.0); Immature Granulocyte Absolute 0.03 K/mm3 (0.00-0.031); Immature Granulocyte Percent A 0.4 % (0-0.5); Lymphocytes Absolute Auto 1.35 K/mm3 (0.9-3.2); Lymphocytes Percent Auto 19.5 % (18.3-44.2); Mean Corpuscular HGB Conc 28.1 g/dl (32-36); Mean Corpuscular Hemoglobin 26.4 pg (26-34); Mean Corpuscular Volume 94.1 fl (80-100); Mean Platelet Volume 11.6 fl (7.4-10.4); Monocytes Absolute Auto 0.8 K/mm3 (0.1-0.6); Neutrophils Absolute Auto 4.6 K/mm3 (1.3-6.7); Neutrophils Percent Auto 65.8 % (45.5-73.1); Platelet Count Result 250 k/mm3 (150-375); Red Blood Count 3.03 M/mm3 (4.6-6.20); Red Cell Distribution Width 17.5 % (11.5-14.5); White Blood Count 6.9 K/mm3 (4.5-10.0)
[2023-04-09 06:44] LABS: Alanine Aminotransferase 21 U/L (6-50); Albumin Level 3.3 g/dL (3.5-5.1); Alkaline Phosphatase 97 U/L (38-126); Anion Gap 6 mmol/L (8-16); Aspartate Amino Transferase 32 U/L (17-59); Bilirubin,Total 0.8 mg/dL (0.2-1.3); Blood Urea Nitrogen 23 mg/dL (9-20); Calcium 8.9 mg/dL (8.4-10.2); Carbon Dioxide 23 mmol/L (22-30); Chloride 110 mmol/L (98-107); Estimated CRCL calculation 43 ml/min; Estimated Glomerular Filt Rate 45; Glucose 96 mg/dL (65-110); Potassium 4.3 mmol/L (3.4-5.0); Sodium 139 mmol/L (137-145)
[2023-04-09 07:28] LABS: Anisocytosis 1+ (NORMAL); Hypochromasia 1+ (NORMAL); Ovalocytes 1+ (NORMAL); Platelet Estimate Adequate (Adequate); Schistocytes None Seen (NORMAL); Tear Drop Cells 1+ (NORMAL)
[2023-04-09 07:50] LABS: Glucose Point of Care 105 mg/dl (65-105)
[2023-04-09 09:46] VITALS: PULSE 71
[2023-04-09] MEDS: AMIODARONE HCL 200 MG TABLET PO (09:46)
[2023-04-09] MEDS: ATORVASTATIN 40 MG TABLET 80 MG PO (09:46)
[2023-04-09] MEDS: CHOLECALCIFEROL 1,000 UNITS TABLET 2000 UNITS PO (09:46)
[2023-04-09] MEDS: APIXABAN 5 MG TABLET PO ×2 (09:46→21:02)
[2023-04-09] MEDS: EZETIMIBE 10 MG TABLET PO (09:46)
[2023-04-09] MEDS: GABAPENTIN 400 MG CAPSULE 800 MG PO (09:47)
[2023-04-09] MEDS: calcitrioL 0.25 MCG CAPSULE PO (11:28)
[2023-04-09] MEDS: PANTOPRAZOLE SODIUM IV 40 MG VIAL IV PUSH (11:28)
[2023-04-09] MEDS: SODIUM CHLORIDE 0.9% IV 1,000 ML 100 ML IV CONT (11:28)
[2023-04-09 11:40] LABS: Glucose Point of Care 120 mg/dl (65-105)
--- NOTE | 2023-04-09 11:55 | PM.PNGS ---
Progress Note: A&P Assessment and Plan (1) Partial small bowel obstruction: Code(s): K56.600 - Partial intestinal obstruction, unspecified as to cause Status: Acute Assessment and Plan: Tolerating diet so far. OK to discharge when tolerating regular diet. No surgical follow up needed. Return to ED for recurrent symptoms. (2) Anticoagulant long-term use: Code(s): Z79.01 - snf (current) use of anticoagulants Status: Acute (3) Anemia: Code(s): D64.9 - Anemia, unspecified Status: Chronic (4) Multiple myeloma: Code(s): C90.00 - Multiple myeloma not having achieved remission Status: Acute Subjective Subjective Date/Time Seen: 04/09/23 11:55 Interval history: Tolerating diet. Bowels moving. No bloating or nausea. Exam GI: Inspection: non-distended GI Palp: Yes Soft to palpation, No Tenderness to palpation present (GI) and No Guarding due to palpation present (GI) Auscultation: normal bowel sounds Objective Data Vital Signs Vital Signs: Vital Signs - 24 hr 04/08/23 14:00 04/08/23 19:37 04/08/23 22:00 Temperature 36.6 C 36.5 C Pulse Rate 81 80 Respiratory Rate 20 14 Blood Pressure 113/61 103/60 Pulse Oximetry 97 97 100 Oxygen Delivery Room Air 04/09/23 06:00 04/09/23 09:46 04/08/23 14:17 Temperature 36.6 C 36.6 C Pulse Rate 71 71 81 Respiratory Rate 14 20 Blood Pressure 105/59 L 113/61 Pulse Oximetry 100 97 Oxygen Delivery Intake/Output Intake/Output: Intake & Output 04/06/23 04/07/23 04/08/23 04/09/23 23:59 23:59 23:59 23:59 Intake Total 2694 1118 Output Total 400 Balance 2294 1118 Meds/Results Medications: Active Medications Generic Name Dose Route Start Last Admin Trade Name Freq PRN Reason Stop Dose Admin Amiodarone HCl 200 mg 04/09/23 09:00 04/09/23 09:46 Amiodarone Hcl 200 Mg Tablet PO 200 mg DAILY CATHY Administration Apixaban 5 mg 04/08/23 21:00 04/09/23 09:46 Apixaban 5 Mg Tablet PO 5 mg Q12HR CATHY Administration Atorvastatin Calcium 80 mg 04/09/23 09:00 04/09/23 09:46 Atorvastatin 40 Mg Tablet PO 80 mg DAILY CATHY Administration Calcitriol 0.25 mcg 04/09/23 09:55 04/09/23 11:28 Calcitriol 0.25 Mcg Capsule PO 0.25 mcg [id number] CATHY Administration Dextrose 12.5 gm 04/08/23 08:21 Dextrose 50% 25 Gm/50 Ml Syringe IV PUSH PRN PRN Hypoglycemia Protocol Ezetimibe 10 mg 04/09/23 09:00 04/09/23 09:46 Ezetimibe 10 Mg Tablet PO 10 mg DAILY CATHY Administration Gabapentin 800 mg 04/09/23 09:00 04/09/23 09:47 Gabapentin 400 Mg Capsule PO 800 mg QAM CATHY Administration Gabapentin 300 mg 04/08/23 18:00 04/08/23 20:05 Gabapentin 300 Mg Capsule PO 300 mg QPM CATHY Administration Glucagon 1 mg 04/08/23 08:21 Glucagon For Inj 1 Mg Vial IM PRN PRN Hypoglycemia Protocol Glucose 15 gm 04/08/23 08:21 Glucose Oral Gel 15 Gm Of Glucse In 37.5 Gm Tube PO PRN PRN Hypoglycemia Protocol Hydromorphone HCl 0.2 mg 04/08/23 08:22 04/08/23 08:55 Hydromorphone Hcl Inj (*Crx) 1 Mg/Ml Syr IV PUSH 0.2 mg Q4HR PRN Administration Pain Rated 7-10 Sodium Chloride 1,000 mls @ 100 mls/hr 04/08/23 08:20 04/09/23 11:28 Normal Saline Iv IV CONT 100 mls/hr .Q10H CATHY Administration Dextrose 1,000 mls @ 100 mls/hr 04/08/23 08:21 Dextrose 5% 1,000 Ml IVPB PRN PRN Hypoglycemia Protocol Insulin Aspart 2 - 5 units 04/08/23 08:00 04/09/23 11:32 Insulin Aspart (*Bkc) 100 Units/Ml SUB-Q Not Given TIDWM CATHY Protocol Insulin Glargine 15 units 04/08/23 21:00 04/08/23 20:24 Insulin Glargine (*Bkc) 100 Units/Ml SUB-Q 15 units HS CATHY Administration Pantoprazole Sodium 40 mg 04/08/23 10:25 04/09/23 11:28 Pantoprazole Sodium Iv 40 Mg Vial IV PUSH 40 mg QAM CATHY Administration Prochlorperazine Edisylate 5 mg 04/08/23 0
[2023-04-09 14:00] VITALS: BP 101/48; PULSE 75; RESP 18; TEMP 36.8; O2SAT 100
--- NOTE | 2023-04-09 14:55 | PM.DS ---
DS: Discharge Diagnosis Discharge Diagnosis (1) Partial small bowel obstruction: Code(s): K56.600 - Partial intestinal obstruction, unspecified as to cause Status: Acute (2) Anemia: Code(s): D64.9 - Anemia, unspecified Status: Chronic (3) Anticoagulant long-term use: Code(s): Z79.01 - intermediate (current) use of anticoagulants Status: Acute (4) Melena: Code(s): K92.1 - Melena Status: Acute (5) Gastric antral vascular ectasia (watermelon stomach): Code(s): K31.819 - Angiodysplasia of stomach and duodenum without bleeding Status: Acute (6) Coronary artery disease: Code(s): I25.10 - Atherosclerotic heart disease of [place] coronary artery without angina pectoris Status: Acute (7) H/O deep venous thrombosis: Code(s): Z86.718 - Personal history of other venous thrombosis and embolism Status: Acute (8) Type 2 diabetes mellitus with diabetic neuropathy, unspecified: Code(s): E11.40 - Type 2 diabetes mellitus with diabetic neuropathy, unspecified Status: Acute (9) Chronic obstructive pulmonary disease, unspecified: Code(s): J44.9 - Chronic obstructive pulmonary disease, unspecified Status: Acute (10) Multiple myeloma: Code(s): C90.00 - Multiple myeloma not having achieved remission Status: Acute (11) Prostate CA: Code(s): C61 - Malignant neoplasm of prostate Status: Acute Plan Acute and principal conditions 1. Partial SBO NPO; NGT General surgery consulted IVFs Hold Eliquis; Place on Heparin infusion Chronic and stable conditions 1. Anemia GAVE AVM 2. MM. on 3. CKD3. Avoid nephrotoxins 4.COPD. DuoNebs PRN 5. H/O DVTs/PE. on Heparin 6. Prostate Ca. s/p XRT, CryoRx Miscellaneous care. 1. Code status. Full 2. Nutrition. NPO 3. VTE prophylaxis. on Heparin DS: Summary Time Spent with Patient Time attestation: Total time spent providing and/or coordinating discharge services: Exam Const: General: comfortable; No in distress or confusion Orientation/consciousness: No confusion HENMT: Mouth: Yes moist mucous membranes Eyes: General: appearance normal, both eyes and all related structures Pupils: Equal, round and reactive pupils present Neck: Neck: supple Resp: Effort & Inspection: normal respiratory effort Auscultation: clear to auscultation bilaterally Cardio: Rate: regular rate Rhythm: regular rhythm GI: Auscultation: bowels sounds normal (Hypoactive) Skin: General skin exam: normal color Neuro: General: gait normal and No confusion Cranial nerves: Yes Equal, round and reactive pupils present Motor exam (neuro): 5/5 motor strength present throughout Extrem: General: normal to inspection DS: Data Data Completed and Pending Labs on day of discharge: Labs from last 24 hours 04/09/23 04/09/23 04/09/23 11:30 07:39 06:06 WBC 6.9 RBC 3.03 L Hgb 8.0 L Hct 28.5 L MCV 94.1 MCH 26.4 MCHC 28.1 L RDW 17.5 H Plt Count 250 MPV 11.6 H Immature Gran % (Auto) 0.4 Neut % (Auto) 65.8 Lymph % (Auto) 19.5 [place] % (Auto) 11.0 H Eos % (Auto) 2.9 Baso % (Auto) 0.4 Lymph # (Auto) 1.35 [place] # (Auto) 0.8 H Eos # (Auto) 0.2 Baso # (Auto) 0.0 Abs Immat Gran (auto) 0.03 Absolute Neuts (auto) 4.6 Absolute Nucleated RBC 0.0 Nucleated RBC % 0.0 Platelet Estimate Adequate Hypochromasia 1+ Anisocytosis 1+ Tear Drop Cells 1+ Ovalocytes 1+ Schistocytes None seen APTT Sodium 139 Potassium 4.3 Chloride 110 H Carbon Dioxide 23 Anion Gap 6 L BUN 23 H Creatinine 1.50 H Estim Creat Clear Calc 43 Estimated GFR 45 L Glucose 96 POC Capillary Glucose 120 H 105 Calcium 8.9 Total Bilirubin 0.8 AST 32 ALT 21 Alkaline Phosphatase 97 Total Protein 6.0 L Albumin 3.3 L 04/08/23 04/08/23 04/08/23 20:18 16:56 16:21 WB
--- NOTE | 2023-04-09 15:05 | PM.IMPN ---
Progress Note: A&P Assessment and Plan (1) Partial small bowel obstruction: Code(s): K56.600 - Partial intestinal obstruction, unspecified as to cause Status: Acute (2) Anemia: Code(s): D64.9 - Anemia, unspecified Status: Chronic (3) Anticoagulant long-term use: Code(s): Z79.01 - long-term (current) use of anticoagulants Status: Acute (4) Melena: Code(s): K92.1 - Melena Status: Acute (5) Gastric antral vascular ectasia (watermelon stomach): Code(s): K31.819 - Angiodysplasia of stomach and duodenum without bleeding Status: Acute (6) Coronary artery disease: Code(s): I25.10 - Atherosclerotic heart disease of [place] coronary artery without angina pectoris Status: Acute (7) H/O deep venous thrombosis: Code(s): Z86.718 - Personal history of other venous thrombosis and embolism Status: Acute (8) Type 2 diabetes mellitus with diabetic neuropathy, unspecified: Code(s): E11.40 - Type 2 diabetes mellitus with diabetic neuropathy, unspecified Status: Acute (9) Chronic obstructive pulmonary disease, unspecified: Code(s): J44.9 - Chronic obstructive pulmonary disease, unspecified Status: Acute (10) Multiple myeloma: Code(s): C90.00 - Multiple myeloma not having achieved remission Status: Acute (11) Prostate CA: Code(s): C61 - Malignant neoplasm of prostate Status: Acute Plan Acute and principal conditions 1. Partial SBO NPO; NGT General surgery consulted IVFs Hold Eliquis; Place on Heparin infusion Chronic and stable conditions 1. Anemia GAVE AVM 2. MM.?on 3. CKD3.?Avoid nephrotoxins 4.COPD.?DuoNebs PRN 5. H/O DVTs/PE.?on Heparin 6. Prostate Ca.?s/p XRT, CryoRx Miscellaneous care. 1. Code status.?Full 2. Nutrition.?NPO 3. VTE prophylaxis.?on Heparin 04/09/23: Diet advanced; will dC tomorrow if tolarating well Time Spent With Patient Time with patient: 25 - 35 minutes Subjective Date/time seen: 04/09/23 15:05 Interval history: Mr. Yang is being evaluated and managed for partial SBO He denies any fresh concern Review of Systems Constitutional: Constitutional: Reports fatigue and Denies headache(s) Eyes: Eyes: Reports no additional eye complaints ENT: Reports system reviewed and no additional complaints, except as documented, Denies dysphagia and Denies headache(s) Cardiovascular: Cardiovascular: Denies chest pain, Denies pedal edema, Denies leg edema and Denies dyspnea Respiratory: Respiratory: Reports no additional respiratory complaints, Denies cough and Denies dyspnea Gastrointestinal: Gastrointestinal: Reports abdominal pain, Reports melena, Denies dysphagia and Reports nausea Musculoskeletal: Musculoskeletal: Denies abnormal gait, Denies back pain, Denies myalgias and Denies arthralgias Integumentary/Breasts: Skin/Breast: Reports dry skin Neurologic: Denies abnormal gait and Denies headache(s) Psychiatric: Psychiatric: Reports no additional psychiatric complaints Endocrine: Endocrine: Reports fatigue Exam Const: General: comfortable and no acute distress HENMT: Ears: TM's normal bilaterally Eyes: General: appearance normal, both eyes and all related structures Neck: Neck: supple Resp: Effort & Inspection: normal respiratory effort Cardio: Rate: regular rate GI: GI Palp: Yes Soft to palpation Auscultation: normal bowel sounds Skin: General skin exam: normal color Neuro: General: gait normal Motor exam (neuro): 5/5 motor strength present throughout Extrem: General: normal to inspection Psych: Mental Status: mental status grossly normal Objective Data Vital Signs Vital Signs: Vital Signs - 24 hr 04/08/23 19:37 04/08/23 22:00 04/09/23 06:00 Temperature 97.7 F 98 F Pulse Rate 80 71 Respiratory Rate 14 14 Blood Pressure 103/60 105/59 L Pulse Oximetry 97 100 100 Oxygen Delivery Room Air 04/09/23 09:46 0
[2023-04-09 16:46] LABS: Glucose Point of Care 184 mg/dl (65-105)
[2023-04-09] MEDS: GABAPENTIN 300 MG CAPSULE PO (17:15)
[2023-04-09 20:00] VITALS: PULSE 75; RESP 18; O2SAT 100
[2023-04-09] MEDS: INSULIN GLARGINE (*BKC) 100 UNITS/ML 15 UNITS SUB-Q (21:03)
[2023-04-09 21:54] LABS: Glucose Point of Care 164 mg/dl (65-105)
[2023-04-09 22:00] VITALS: BP 108/61; PULSE 70; RESP 16; TEMP 36.9; O2SAT 97
[2023-04-10] MEDS: SODIUM CHLORIDE 0.9% IV 1,000 ML 100 ML IV CONT (00:22)
[2023-04-10 06:00] VITALS: BP 109/50; PULSE 64; RESP 18; TEMP 36.8; O2SAT 100
[2023-04-10 07:02] LABS: Alanine Aminotransferase 19 U/L (6-50); Albumin Level 3.2 g/dL (3.5-5.1); Alkaline Phosphatase 78 U/L (38-126); Anion Gap 6 mmol/L (8-16); Aspartate Amino Transferase 31 U/L (17-59); Bilirubin,Total 0.8 mg/dL (0.2-1.3); Blood Urea Nitrogen 20 mg/dL (9-20); Calcium 8.6 mg/dL (8.4-10.2); Carbon Dioxide 22 mmol/L (22-30); Chloride 108 mmol/L (98-107); Estimated CRCL calculation 43 ml/min; Estimated Glomerular Filt Rate 45; Glucose 113 mg/dL (65-110); Potassium 4.1 mmol/L (3.4-5.0); Sodium 136 mmol/L (137-145)
[2023-04-10 07:46] LABS: Glucose Point of Care 112 mg/dl (65-105)
[2023-04-10 08:58] VITALS: PULSE 72
[2023-04-10] MEDS: AMIODARONE HCL 200 MG TABLET PO (08:58)
[2023-04-10] MEDS: ATORVASTATIN 40 MG TABLET 80 MG PO (08:58)
[2023-04-10] MEDS: EZETIMIBE 10 MG TABLET PO (08:58)
[2023-04-10] MEDS: GABAPENTIN 400 MG CAPSULE 800 MG PO (08:58)
[2023-04-10] MEDS: CHOLECALCIFEROL 1,000 UNITS TABLET 2000 UNITS PO (09:01)
[2023-04-10] MEDS: APIXABAN 5 MG TABLET PO (09:01)
[2023-04-10] MEDS: PANTOPRAZOLE SODIUM IV 40 MG VIAL IV PUSH (09:05)
[2023-04-10 11:27] LABS: Glucose Point of Care 171 mg/dl (65-105)
--- NOTE | 2023-04-10 11:42 | PM.DS ---
DS: Admitting Diagnosis Discharge Date Admitting Diagnosis 1. Partial SBO DS: Discharge Diagnosis Discharge Diagnosis (1) Partial small bowel obstruction: Code(s): K56.600 - Partial intestinal obstruction, unspecified as to cause Status: Acute (2) Anemia: Code(s): D64.9 - Anemia, unspecified Status: Chronic (3) Anticoagulant long-term use: Code(s): Z79.01 - dross skimmer (current) use of anticoagulants Status: Acute (4) Melena: Code(s): K92.1 - Melena Status: Acute (5) Gastric antral vascular ectasia (watermelon stomach): Code(s): K31.819 - Angiodysplasia of stomach and duodenum without bleeding Status: Acute (6) Coronary artery disease: Code(s): I25.10 - Atherosclerotic heart disease of [place] coronary artery without angina pectoris Status: Acute (7) H/O deep venous thrombosis: Code(s): Z86.718 - Personal history of other venous thrombosis and embolism Status: Acute (8) Type 2 diabetes mellitus with diabetic neuropathy, unspecified: Code(s): E11.40 - Type 2 diabetes mellitus with diabetic neuropathy, unspecified Status: Acute (9) Chronic obstructive pulmonary disease, unspecified: Code(s): J44.9 - Chronic obstructive pulmonary disease, unspecified Status: Acute (10) Multiple myeloma: Code(s): C90.00 - Multiple myeloma not having achieved remission Status: Acute (11) Prostate CA: Code(s): C61 - Malignant neoplasm of prostate Status: Acute Plan Acute and principal conditions 1. Partial SBO NPO; NGT General surgery consulted IVFs Hold Eliquis; Place on Heparin infusion Per General surgery: Tolerating diet so far.? OK to discharge when tolerating regular diet.? No surgical follow up needed.? Return to ED for recurrent symptoms. Chronic and stable conditions 1. Anemia GAVE AVM 2. MM.?on 3. CKD3.?Avoid nephrotoxins 4.COPD.?DuoNebs PRN 5. H/O DVTs/PE.?on Heparin 6. Prostate Ca.?s/p XRT, CryoRx Miscellaneous care. 1. Code status.?Full 2. Nutrition.?NPO 3. VTE prophylaxis.?on Heparin 04/09/23: Diet advanced; will dC tomorrow if tolarating well DS: Summary Hospital Course Reason for hospitalization: Partial SBO Hospital Course: Chief Complaint: 1. Abdominal pain 2. Nausea and Vomiting Narrative: Cal aYng is a 77 yo M with a mHx significant for colectomy 2/2 diverticulitis, obesity, Atrial fibrillation, IDDM, MM, COPD, DVT, AVM/GAVE, Anemia, Prostate Ca Over the last week, he has been experiencing lower abdominal pains; these are sharp/cramping, non-radiating, rated 7-10, aggravated by meals, alleviated by fasting, associated wtih nausea and vomiting; his stools have been dark due to AVM/GAVE. He denies fevers, chills, diarrhea, skin/joint pain; he attests to sweats. He does not smoke/chew tobacco, drink alcohol or consume recreational drugs; his family Hx is not contributory to the PC At the bedside, he has an NGT in place; bowel sounds are hypoactive. Significant findings: CTAP: Mildly distended small bowel loops raise the possibility of early or partial small bowel obstruction. WBC 9 Hb 8.3 PLTs 194 INR 1.2 Na 136 K 4.4 Cl 107 HCO3 22 AG 7 BUN 23 Cr. 1.5 GFR 45 UA: Unremarkable He will be admitted, evaluated and managed for partial SBO; an NGT was placed, GS was consulted. Acute and principal conditions 1. Partial SBO NPO; NGT General surgery consulted IVFs Hold Eliquis; Place on Heparin infusion Per General surgery: Tolerating diet so far.? OK to discharge when tolerating regular diet.? No surgical follow up needed.? Return to ED for recurrent symptoms. Chronic and stable conditions 1. Anemia GAVE AVM 2. MM.?on 3. CKD3.?Avoid nephrotoxins 4.COPD.?DuoNebs PRN 5. H/O DVTs/PE.?on Heparin 6. Prostate Ca.?s/p XRT, CryoRx Miscellaneous care. 1. Code status.?Full 2. Nutrition.?NPO 3. VTE prophylaxis.?
--- NOTE | 2023-04-10 11:59 | PC.NURSE ---
On 04/10/23, the DEGREE CLERK, MEG DE LA FUENTE, provided care and completed [employer] documentation on this patient. I have reviewed the DEGREE CLERK's documentation and agree with the findings.
== END 2023-04-10 12:57 | disposition home or self-care (01) | DRG 389 ==
LOC: ANHED 06:37 → ANH3MEDSUR 07:28
PROVIDERS: Admitting Provider Internal Medicine; Emergency Provider Emergency Medicine; PCP Family Medicine; Visit Provider Internal Medicine
DX: K56.600 Partial intestinal obstruction, unspecified as to cause (principal); C90.00 Multiple myeloma not having achieved remission; N18.4 Chronic kidney disease, stage 4 (severe); K31.819 Angiodysplasia of stomach and duodenum without bleeding; I25.10 Atherosclerotic heart disease of native coronary artery without angina pectoris; E11.42 Type 2 diabetes mellitus with diabetic polyneuropathy; J44.9 Chronic obstructive pulmonary disease, unspecified; D64.9 Anemia, unspecified; C61 Malignant neoplasm of prostate; E66.9 Obesity, unspecified; E11.22 Type 2 diabetes mellitus with diabetic chronic kidney disease; I48.91 Unspecified atrial fibrillation; Z96.659 Presence of unspecified artificial knee joint; Z79.01 Long term (current) use of anticoagulants; Z86.718 Personal history of other venous thrombosis and embolism; Z86.711 Personal history of pulmonary embolism; Z68.31 Body mass index [BMI] 31.0-31.9, adult; Z90.49 Acquired absence of other specified parts of digestive tract; Z87.891 Personal history of nicotine dependence
CPT/HCPCS: 36415; 74177; 74250; 80053; 81001; 82948; 83036; 83690; 85025; 85610; 85730; 96375; 96376; A9270; C9113; G0378; J1170; J1644; J1815; J2405; J7030; Q9967

== ENCOUNTER 2023-04-12 12:05 | Outpatient (CLI) | payer MEDICARE, SELFPAY ==
[2023-04-12 12:45] LABS: Basophils Percent Auto 0.3 % (0.2-1.2); Eosinophils Absolute Auto 0.1 K/mm3 (0-0.3); Eosinophils Percent Auto 1.9 % (0-4.4); Hematocrit 26.9 % (42.0-52.0); Hemoglobin 7.6 g/dL (14.0-18.0); Immature Granulocyte Absolute 0.03 K/mm3 (0.00-0.031); Immature Granulocyte Percent A 0.5 % (0-0.5); Lymphocytes Absolute Auto 0.97 K/mm3 (0.9-3.2); Lymphocytes Percent Auto 16.7 % (18.3-44.2); Mean Corpuscular HGB Conc 28.3 g/dl (32-36); Mean Corpuscular Hemoglobin 25.9 pg (26-34); Mean Corpuscular Volume 91.8 fl (80-100); Mean Platelet Volume 11.3 fl (7.4-10.4); Monocytes Absolute Auto 0.8 K/mm3 (0.1-0.6); Monocytes Percent Auto 13.9 % (2.6-8.5); Neutrophils Absolute Auto 3.9 K/mm3 (1.3-6.7); Neutrophils Percent Auto 66.7 % (45.5-73.1); Platelet Count Result 269 k/mm3 (150-375); Red Blood Count 2.93 M/mm3 (4.6-6.20); Red Cell Distribution Width 17.8 % (11.5-14.5); White Blood Count 5.8 K/mm3 (4.5-10.0)
[2023-04-12 12:56] LABS: Creatinine Urine 102.1 mg/dL
[2023-04-12 13:08] LABS: Anisocytosis 1+ (NORMAL); Hypochromasia 1+ (NORMAL); Platelet Estimate Adequate (Adequate); Schistocytes None Seen (NORMAL)
[2023-04-12 13:08] LABS: Alanine Aminotransferase 18 U/L (6-50); Albumin Level 3.3 g/dL (3.5-5.1); Alkaline Phosphatase 79 U/L (38-126); Anion Gap 2 mmol/L (8-16); Aspartate Amino Transferase 25 U/L (17-59); Bilirubin,Total 0.6 mg/dL (0.2-1.3); Blood Urea Nitrogen 20 mg/dL (9-20); Calcium 9.1 mg/dL (8.4-10.2); Carbon Dioxide 28 mmol/L (22-30); Chloride 106 mmol/L (98-107); Cholesterol 114 mg/dL (0-200); Estimated Glomerular Filt Rate 53; Glucose 119 mg/dL (65-110); HDL Direct 43 mg/dL; Potassium 3.8 mmol/L (3.4-5.0); Sodium 136 mmol/L (137-145); Triglycerides 63 mg/dL (<150)
[2023-04-12 13:19] LABS: LDL Cholesterol Direct 61 mg/dL
[2023-04-12 13:33] LABS: MALB Creatinine Ratio 31.2 mg/g (0-30); Microalbumin Urine Random 31.9 mg/L (0-16.7)
[2023-04-12 13:48] LABS: Immunoglobulin A 169 mg/dL (70-400)
[2023-04-15 11:11] LABS: Kappa\\Lambda Light Chains 2.33 (0.26-1.65); Lambda Light Chain 18.6 mg/L (5.7-26.3)
[2023-04-15 14:26] LABS: Albumin 2.9 g/dL (3.8-4.8); Alpha 1 Globulin 0.3 g/dL (0.2-0.3); Alpha 2 Globulin 0.8 g/dL (0.5-0.9); Beta 1 Globulin 0.4 g/dL (0.4-0.6); Gamma Globulin 0.5 g/dL (0.8-1.7); Protein, Total 5.3 g/dL (6.1-8.1)
[2023-04-18 06:42] LABS: Beta-2-Microglobulin 3.46 mg/L (<=2.51)
== END 2023-04-12 12:06 | disposition home or self-care (01) ==
PROVIDERS: PCP Family Medicine; Referring Provider Nurse Practitioner Family; Visit Provider Internal Medicine Medical Oncology
DX: C90.00 Multiple myeloma not having achieved remission (principal); E11.65 Type 2 diabetes mellitus with hyperglycemia; E11.59 Type 2 diabetes mellitus with other circulatory complications; E78.5 Hyperlipidemia, unspecified; Z79.4 Long term (current) use of insulin
CPT/HCPCS: 36415; 80053; 80061; 82043; 82232; 82784; 83883; 84155; 84165; 85025

== ENCOUNTER 2023-04-18 16:54 | Observation (INO) | payer MEDICARE, SELFPAY ==
[2023-04-18 16:55] VITALS: BP 122/59; PULSE 81; RESP 20; TEMP 36.4; O2SAT 100
--- NOTE | 2023-04-18 17:00 | ECG_ITS ---
Measurements Intervals [place] Rate: 69 P: 12 MS: 310 QRS: 41 QRSD: 102 T: -3 QT: 414 QTc: 445 Interpretive Statements SINUS RHYTHM WITH FIRST DEGREE AV BLOCK LOW QRS VOLTAGE IN PRECORDIAL LEADS [QRS DEFLECTION < 1.0 mV IN CHEST LEADS] NONSPECIFIC T-WAVE ABNORMALITY BORDERLINE ECG COMPARED TO ECG 02/19/2023 21:03:33 NO SIGNIFICANT CHANGES Electronically Signed On 04-19-2023 14:36:00 REVIEW SPECIALIST by Jose Bishop M.D.
[2023-04-18 17:15] LABS: Basophils Percent Auto 0.5 % (0.2-1.2); Eosinophils Absolute Auto 0.1 K/mm3 (0-0.3); Eosinophils Percent Auto 1.4 % (0-4.4); Hematocrit 24.7 % (42.0-52.0); Immature Granulocyte Absolute 0.03 K/mm3 (0.00-0.031); Immature Granulocyte Percent A 0.5 % (0-0.5); Lymphocytes Absolute Auto 1.19 K/mm3 (0.9-3.2); Lymphocytes Percent Auto 20.1 % (18.3-44.2); Mean Corpuscular HGB Conc 28.3 g/dl (32-36); Mean Corpuscular Hemoglobin 25.1 pg (26-34); Mean Corpuscular Volume 88.5 fl (80-100); Mean Platelet Volume 10.4 fl (7.4-10.4); Monocytes Absolute Auto 0.7 K/mm3 (0.1-0.6); Monocytes Percent Auto 11.2 % (2.6-8.5); Neutrophils Absolute Auto 3.9 K/mm3 (1.3-6.7); Neutrophils Percent Auto 66.3 % (45.5-73.1); Platelet Count Result 241 k/mm3 (150-375); Red Blood Count 2.79 M/mm3 (4.6-6.20); Red Cell Distribution Width 19.3 % (11.5-14.5); White Blood Count 5.9 K/mm3 (4.5-10.0)
[2023-04-18 17:25] LABS: INR 1.3; Prothrombin Time 17.1 Seconds (11.1-14.7)
[2023-04-18 17:27] LABS: Partial Thromboplastin Time 34.5 SECONDS (22.3-36.8)
[2023-04-18 17:29] LABS: Alanine Aminotransferase 16 U/L (6-50); Albumin Level 3.6 g/dL (3.5-5.1); Alkaline Phosphatase 78 U/L (38-126); Anion Gap 8 mmol/L (8-16); Aspartate Amino Transferase 27 U/L (17-59); Bilirubin,Total 0.7 mg/dL (0.2-1.3); Blood Urea Nitrogen 36 mg/dL (9-20); Carbon Dioxide 23 mmol/L (22-30); Chloride 104 mmol/L (98-107); Estimated CRCL calculation 43 ml/min; Estimated Glomerular Filt Rate 45; Glucose 177 mg/dL (65-110); Potassium 3.9 mmol/L (3.4-5.0); Sodium 135 mmol/L (137-145)
[2023-04-18 17:39] LABS: Anisocytosis 1+ (NORMAL); Hypochromasia 1+ (NORMAL); Ovalocytes 1+ (NORMAL); Platelet Estimate Adequate (Adequate); Schistocytes None Seen (NORMAL); Tear Drop Cells 1+ (NORMAL)
[2023-04-18 23:25] VITALS: BP 120/56; PULSE 75; RESP 12; O2SAT 100
--- NOTE | 2023-04-18 23:29 | PC.NURSE ---
Bedside report received from JORDAN Pulliam. Pt being seen by Dr. Lane at this time.
[2023-04-18 23:30] VITALS: BP 113/63; PULSE 74; RESP 25; O2SAT 100
[2023-04-18 23:31] VITALS: PULSE 74; RESP 16
[2023-04-18 23:45] VITALS: BP 119/58; PULSE 72; RESP 17; O2SAT 100
[2023-04-19] VITALS (29 sets, daily range): BP systolic 112–149; BP diastolic 57–102; PULSE 65–100; RESP 12–21; TEMP 36.2–37.1; O2SAT 96–100; BMI 33.3
--- NOTE | 2023-04-19 01:02 | ED.GENADULT ---
HPI - General Adult General Chief complaint: Recheck/Abnormal Lab/Rx Stated complaint: low h&h Time Seen by Provider: 04/18/23 22:34 History of Present Illness HPI narrative: This is a 77-year-old male history of multiple myeloma presenting for low hemoglobin. He was sent by his heme/Onc doctor Dr. Campbell for a HGB of 6.8. Patient notes that he is developed shortness of breath and chest pain when ambulating. Symptoms resolved her rest. Patient denies dark stools, although he does have history GI bleeds. patient is on Eliquis. Related Data Home Medications Medication Instructions Recorded Confirmed amiodarone 200 mg tablet 200 mg PO DAILY 04/22/19 04/08/23 ezetimibe 10 mg tablet (Zetia) 10 mg PO DAILY 04/22/19 04/08/23 furosemide 20 mg tablet (Lasix) 20 mg PO EVERY OTHER DAY 04/22/19 04/08/23 ixazomib 4 mg capsule (Ninlaro) See Rx Instructions PO .COMPLEX 04/22/19 04/08/23 nitroglycerin 0.4 mg sublingual 0.4 mg buccal DIRECTED PRN 04/22/19 04/08/23 tablet (Nitrostat) Chest Pain spironolactone 25 mg tablet 25 mg PO DAILY 04/22/19 04/08/23 apixaban 5 mg tablet (Eliquis) 5 mg PO BID 07/09/21 04/08/23 dulaglutide 1.5 mg/0.5 mL 3 mg subcut WEEKLY 07/09/21 04/08/23 subcutaneous pen injector (Trulicity) empagliflozin 25 mg tablet 25 mg PO DAILY 07/09/21 04/08/23 (Jardiance) gabapentin 300 mg capsule 300 mg PO QPM 07/09/21 04/08/23 gabapentin 800 mg tablet 800 mg PO QAM 07/09/21 04/08/23 oxycodone-acetaminophen 5 mg-325 1 tablet PO Q6H PRN Pain 07/09/21 04/08/23 mg tablet acyclovir 400 mg tablet 400 mg PO .PM PRN Rash 12/23/22 04/08/23 cholecalciferol (vitamin D3) 50 50 mcg PO DAILY 12/23/22 04/08/23 mcg (2,000 unit) capsule insulin glargine U-300 conc 300 45 unit subcut DAILY 12/23/22 04/08/23 unit/mL (1.5 mL) subcutaneous pen (Toujeo SoloStar U-300 Insulin) insulin lispro 100 unit/mL 12 unit subcut TIDWMEAL 12/23/22 04/08/23 subcutaneous pen (Humalog KwikPen (U-100) Insulin) Allergies Allergy/AdvReac Type Severity Reaction Status Date / Time lenalidomide [From Revlimid] Allergy Intermediate Hives Verified 04/08/23 14:06 niacin Allergy Intermediate Hives Verified 04/08/23 14:06 NSAIDS (Non-Steroidal Allergy Mild Unknown Verified 04/08/23 14:06 Anti-Inflamma PMF Past Medical History Medical History Anemia Cardiomyopathy due to hypertension, with heart failure Chronic obstructive pulmonary disease, unspecified CKD (chronic kidney disease) stage 4, GFR 15-29 ml/min Essential (primary) hypertension Fatigue H/O deep venous thrombosis Melena Multiple myeloma Other hyperlipidemia Type 2 diabetes mellitus with diabetic neuropathy, unspecified Surgical History Surgical History History of bilateral carpal tunnel release History of colon resection History of colostomy reversal Hx laparoscopic cholecystectomy Hx of angioplasty Hx of cardiac cath Hx of tonsillectomy Hx of total knee replacement Family History Family History Father Acute myocardial infarction, Onset Age: 72 Mother Acute myocardial infarction, Onset Age: 83 Social History Social History Smoking packs per day: 1.5 Smoking cigarettes per day: 30.0 Years smoked: 25 Smoking pack-years: 37.50 Smoking status: Former smoker Tobacco type: cigarettes Smoking end date: 02/24/90 Alcohol intake: current Drinks per week: 4 Alcohol use details: social Substance use: never Substance use type: does not use Do You Feel Safe in your Home?: Yes Lack of Transportation: No Lack of Food: Never True Current Housing: I Have Housing Concerned About Future Housing: No Difficulty Paying Gas/Electric Bills: No Difficulty Paying for Meds: No Currently Unemployed: No
[2023-04-19] MEDS: SODIUM CHLORIDE 0.9% IV 250 ML 30 ML IV CONT (01:29)
[2023-04-19] MEDS: TUBING, BLOOD PLUM PUMP TUBING 1 EACH XX (04:21)
--- NOTE | 2023-04-19 04:34 | PC.NURSE ---
Per JORDAN Hollingsworth, room not clean but will call when it is.
--- NOTE | 2023-04-19 05:47 | ADMIMU ---
This patient, Cal Yang, was admitted to IMU status, and placed in IMU Room 213-01 at 0544. Patient/family oriented to hospital policies and general routines including ID bracelet, bed and alarms, visiting hours, pain management, procedures, bathroom and other care routines, personal items, smoking policy, room service/diet, and visiting hours. Valuables list has been completed. Information on how to activate the Rapid Response Team has been discussed. Patient/Family are encouraged to report perceived risks to care and to ask questions if they do not understand what they are told or what they should do.
--- NOTE | 2023-04-19 08:59 | PM.IMHP ---
H&P: HPI History of Present Illness Date/Time: 04/19/23 08:59 Chief Complaint: Abnormal labs Narrative: ? This is a 77-year-old male history of multiple myeloma presenting for low hemoglobin.? He was sent by his heme/Onc doctor Dr. Campbell for a HGB of 6.8.? ? Patient notes that he is developed shortness of breath and chest pain when ambulating.? Symptoms resolved her rest.? Patient denies dark stools, although he does have history GI bleeds.? patient is on Eliquis. He reported no dark stool however this morning show a did have dark stool. He denies any other symptoms. He received 2 unit of packed red blood cell transfusion as well ordered by ER physician. Review of Systems Review of Systems: - CONSTITUTIONAL: Denies weight loss, fever and chills. - HEENT: Denies changes in vision and hearing - RESPIRATORY: See HPI - CV: Denies palpitations and CP. - GI: Denies abdominal pain, nausea, vomiting and diarrhea. - : Denies dysuria and urinary frequency. - MSK: Denies myalgia and joint pain. - SKIN: Denies rash and pruritus. - NEUROLOGICAL: Denies headache and syncope. - PSYCHIATRIC: Denies recent changes in mood. Denies anxiety and depression. [facility] Past Medical History Medical History Anemia Cardiomyopathy due to hypertension, with heart failure Chronic obstructive pulmonary disease, unspecified CKD (chronic kidney disease) stage 4, GFR 15-29 ml/min Essential (primary) hypertension Fatigue H/O deep venous thrombosis Melena Multiple myeloma Other hyperlipidemia Type 2 diabetes mellitus with diabetic neuropathy, unspecified Surgical History Surgical History History of bilateral carpal tunnel release History of colon resection History of colostomy reversal Hx laparoscopic cholecystectomy Hx of angioplasty Hx of cardiac cath Hx of tonsillectomy Hx of total knee replacement Family History Family History Father Acute myocardial infarction, Onset Age: 72 Mother Acute myocardial infarction, Onset Age: 83 Social History Social History Smoking packs per day: 1 Smoking cigarettes per day: 20.0 Years smoked: 25 Smoking pack-years: 25.00 Smoking status: Former smoker Tobacco type: cigarettes Second hand tobacco smoke exposure: No Smoking end date: 06/24/90 Alcohol intake: current Drinks per week: 2 Alcohol use details: social Substance use: never Substance use type: does not use Do You Feel Safe in your Home?: Yes Lack of Transportation: No Lack of Food: Never True Current Housing: I Have Housing Concerned About Future Housing: No Difficulty Paying Gas/Electric Bills: No Difficulty Paying for Meds: No Currently Unemployed: No Education: High School Diploma/GED Difficulty w/ Childcare or Family Care: No Living arrangements: with family Gender identity (if verbalized by the patient): Male Spiritual care concerns: No Meds Home Medications and Allergies Home Medications Medication Instructions Recorded Confirmed Type atorvastatin 80 mg tablet 80 mg PO DAILY #90 tabs 02/09/19 04/19/23 Rx amiodarone 200 mg tablet 200 mg PO DAILY 04/22/19 04/19/23 History ezetimibe 10 mg tablet (Zetia) 10 mg PO DAILY 04/22/19 04/19/23 History furosemide 20 mg tablet (Lasix) 20 mg PO EVERY OTHER DAY 04/22/19 04/19/23 History nitroglycerin 0.4 mg sublingual 0.4 mg buccal DIRECTED PRN 04/22/19 04/19/23 History tablet (Nitrostat) Chest Pain spironolactone 25 mg tablet 25 mg PO DAILY 04/22/19 04/19/23 History apixaban 5 mg tablet (Eliquis) 5 mg PO BID 07/09/21 04/19/23 History dulaglutide 1.5 mg/0.5 mL 3 mg subcut WEEKLY 07/09/21 04/19/23 History subcutaneous pen injector (Trulicity) empagliflozin 25 mg tablet 25
[2023-04-19 09:15] LABS: Hematocrit 29.3 % (42.0-52.0); Hemoglobin 8.7 g/dL (14.0-18.0)
[2023-04-19] MEDS: ATORVASTATIN 40 MG TABLET 80 MG PO (15:36)
[2023-04-19] MEDS: AMIODARONE HCL 200 MG TABLET PO (15:38)
[2023-04-19] MEDS: SPIRONOLACTONE 25 MG TABLET PO (15:39)
[2023-04-19] MEDS: FUROSEMIDE 20 MG TABLET PO (15:39)
[2023-04-19] MEDS: GABAPENTIN 400 MG CAPSULE 800 MG PO (17:31)
[2023-04-19 17:34] LABS: Glucose Point of Care 161 mg/dl (65-105)
[2023-04-19 18:53] LABS: Hematocrit 28.8 % (42.0-52.0); Hemoglobin 8.8 g/dL (14.0-18.0)
[2023-04-19] MEDS: PANTOPRAZOLE SODIUM IV 40 MG VIAL IV PUSH (20:12)
[2023-04-20] VITALS: PULSE 69
[2023-04-20 00:20] LABS: IFOB Positive Control Positive; Immunochemical Fecal Occult Bl Positive (N)
[2023-04-20 01:56] LABS: Hematocrit 27.6 % (42.0-52.0); Hemoglobin 8.3 g/dL (14.0-18.0)
[2023-04-20 04:00] VITALS: PULSE 64
[2023-04-20 05:03] VITALS: BP 112/52; PULSE 67; RESP 18; TEMP 37.2; O2SAT 99
[2023-04-20 05:32] LABS: Basophils Percent Auto 0.5 % (0.2-1.2); Eosinophils Absolute Auto 0.2 K/mm3 (0-0.3); Eosinophils Percent Auto 3.1 % (0-4.4); Hematocrit 30.2 % (42.0-52.0); Hemoglobin 8.7 g/dL (14.0-18.0); Immature Granulocyte Absolute 0.03 K/mm3 (0.00-0.031); Immature Granulocyte Percent A 0.5 % (0-0.5); Lymphocytes Absolute Auto 1.34 K/mm3 (0.9-3.2); Lymphocytes Percent Auto 20.8 % (18.3-44.2); Mean Corpuscular HGB Conc 28.8 g/dl (32-36); Mean Corpuscular Hemoglobin 25.4 pg (26-34); Mean Corpuscular Volume 88.3 fl (80-100); Mean Platelet Volume 10.5 fl (7.4-10.4); Monocytes Absolute Auto 0.8 K/mm3 (0.1-0.6); Monocytes Percent Auto 12.6 % (2.6-8.5); Neutrophils Percent Auto 62.5 % (45.5-73.1); Platelet Count Result 212 k/mm3 (150-375); Red Blood Count 3.42 M/mm3 (4.6-6.20); Red Cell Distribution Width 18.1 % (11.5-14.5); White Blood Count 6.4 K/mm3 (4.5-10.0)
[2023-04-20 06:06] LABS: Alanine Aminotransferase 16 U/L (6-50); Albumin Level 3.4 g/dL (3.5-5.1); Alkaline Phosphatase 80 U/L (38-126); Anion Gap 4 mmol/L (8-16); Aspartate Amino Transferase 24 U/L (17-59); Bilirubin,Total 1.1 mg/dL (0.2-1.3); Blood Urea Nitrogen 25 mg/dL (9-20); Calcium 9.1 mg/dL (8.4-10.2); Carbon Dioxide 24 mmol/L (22-30); Chloride 107 mmol/L (98-107); Estimated CRCL calculation 46 ml/min; Estimated Glomerular Filt Rate 49; Glucose 134 mg/dL (65-110); Magnesium 2.4 mg/dL (1.6-2.3); Potassium 4.6 mmol/L (3.4-5.0); Sodium 135 mmol/L (137-145)
--- NOTE | 2023-04-20 07:08 | PC.NURSE ---
Transferred to [facility] at 2345 on 04/19/23
[2023-04-20 08:00] VITALS: PULSE 61
[2023-04-20 08:21] LABS: Glucose Point of Care 160 mg/dl (65-105)
[2023-04-20] MEDS: EZETIMIBE 10 MG TABLET PO (08:33)
[2023-04-20] MEDS: CHOLECALCIFEROL 1,000 UNITS TABLET 2000 UNITS PO (08:33)
[2023-04-20 08:34] VITALS: PULSE 80
[2023-04-20] MEDS: PANTOPRAZOLE SODIUM IV 40 MG VIAL IV PUSH (08:34)
[2023-04-20] MEDS: GABAPENTIN 300 MG CAPSULE PO (08:34)
[2023-04-20] MEDS: EMPAGLIFLOZIN 25 MG TABLET PO (08:34)
[2023-04-20] MEDS: ATORVASTATIN 40 MG TABLET 80 MG PO (08:34)
[2023-04-20] MEDS: INSULIN GLARGINE (*BKC) 100 UNITS/ML 35 UNITS SUB-Q (08:34)
[2023-04-20] MEDS: SPIRONOLACTONE 25 MG TABLET PO (08:34)
[2023-04-20] MEDS: AMIODARONE HCL 200 MG TABLET PO (08:34)
[2023-04-20] MEDS: INSULIN ASPART (*BKC) 100 UNITS/ML 12 UNITS SUB-Q (08:36)
[2023-04-20 08:37] LABS: Hematocrit 28.9 % (42.0-52.0); Hemoglobin 8.5 g/dL (14.0-18.0)
[2023-04-20 11:17] LABS: Anisocytosis 1+ (NORMAL); Hypochromasia 2+ (NORMAL); Platelet Estimate Adequate (Adequate); Poikilocytosis 1+ (NORMAL); Schistocytes Rare (NORMAL)
--- NOTE | 2023-04-20 11:57 | PM.DS ---
DS: Admitting Diagnosis Discharge Date 04/20/2023 Admitting Diagnosis Anemia DS: Discharge Diagnosis Discharge Diagnosis (1) Symptomatic anemia: Code(s): D64.9 - Anemia, unspecified Status: Acute (2) Elevated troponin: Code(s): R79.89 - Other specified abnormal findings of blood chemistry Status: Acute (3) Anemia: Code(s): D64.9 - Anemia, unspecified Status: Chronic (4) Gastric AVM: Code(s): K31.819 - Angiodysplasia of stomach and duodenum without bleeding Status: Acute (5) Gastric antral vascular ectasia (watermelon stomach): Code(s): K31.819 - Angiodysplasia of stomach and duodenum without bleeding Status: Acute (6) Atrial fibrillation: Code(s): I48.91 - Unspecified atrial fibrillation Status: Acute (7) Coronary artery disease: Code(s): I25.10 - Atherosclerotic heart disease of [place] coronary artery without angina pectoris Status: Acute (8) Acute on chronic anemia: Code(s): D64.9 - Anemia, unspecified Status: Acute (9) Type 2 diabetes mellitus with diabetic neuropathy, unspecified: Code(s): E11.40 - Type 2 diabetes mellitus with diabetic neuropathy, unspecified Status: Acute (10) Other hyperlipidemia: Code(s): E78.49 - Other hyperlipidemia Status: Acute (11) H/O deep venous thrombosis: Code(s): Z86.718 - Personal history of other venous thrombosis and embolism Status: Acute (12) Essential (primary) hypertension: Code(s): I10 - Essential (primary) hypertension Status: Acute DS: Summary Hospital Course Hospital Course: This is a 77-year-old male history of multiple myeloma presenting for low hemoglobin.? He was sent by his heme/Onc doctor Dr. Orona for a HGB of 6.8.? Recheck hemoglobin in the ER was 7.? Baseline hemoglobin around 8-9.? Patient notes that he is developed shortness of breath and chest pain when ambulating.? Symptoms resolved her rest.? Patient initially denied dark stools, although he does have history GI bleeds.? Recent EGD showed findings of non is a gastritis and gave. Patient is on Eliquis 5 mg b.i.d. which was held on admission.? 2 units of PRBC transfusions been ordered.? And status post 2 unit transfusion.? His stool test came back positive for FOBT. Post transfusion is H&H was monitored and remained stable. He is getting back to ensure stability which you should continue to he is on Eliquis 5 mg b.i.d. 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 With his 80s renal function and also due to the findings of recurrent GI bleed E might be served with lowering the dose of Eliquis to 2.5 mg b.i.d. he would discuss this with Dr. Orona at this follow-up appointment tomorrow. On diabetes type 2 on insulin Troponin elevated at 0.1 serial level with repeat at 0.060 likely due to symptomatic anemia and renal insufficiency.? Patient is noted to have elevated troponin in the past as well. EKG with sinus rhythm first-degree AV block with nonspecific ST-T changes Chronic kidney disease stage 3 baseline creatinine and remains stable DVT prophylaxis SCDs Time Spent with Patient Time attestation: Total time spent providing and/or coordinating discharge services: 35 minutes Exam Narrative: APPEARANCE: No apparent distress. Head: atraumatic. EYES:? EOMI, NOSE: Atraumatic NECK: Trachea midline RESPIRATORY: No increased rate of breathing, CTAB CARDIOVASCULAR: RRR,? Pitting edema lower extremities-chronic ABDOMINAL: Non-distended MUSCULOSKELETAl: No obvious deformities NEURO: Alert. Moving 4/4 extremities SKIN:: Warm, dry. Normal color PSYCHIATRIC: Normal affect DS: Data Data Completed and Pending Labs on day of discharge: Labs from last 24 hours 04/20/23 04/20/23 04/20/23 08:18 08:17 05:13 WBC 6.4 RBC 3.42 L Hgb 8.5 L 8.7 L Hct 28.9 L 30.2 L MCV 88.3 MCH 25.4 L MCHC 28.8 L RDW 18.1 H Plt Count 212 MPV
[2023-04-20 12:00] VITALS: PULSE 67
== END 2023-04-20 13:20 | disposition home or self-care (01) ==
LOC: ANHED 04-19 01:21 → ANHIMU 04-19 05:43 → ANH2MED 04-20 11:44 → ANHIMU 04-21 15:33
PROVIDERS: Emergency Medicine; Admitting Provider Internal Medicine; Emergency Provider Emergency Medicine; PCP Internal Medicine Medical Oncology; Visit Provider Internal Medicine
DX: D64.9 Anemia, unspecified (principal); R79.89 Other specified abnormal findings of blood chemistry; C90.00 Multiple myeloma not having achieved remission; K31.819 Angiodysplasia of stomach and duodenum without bleeding; I48.91 Unspecified atrial fibrillation; I25.10 Atherosclerotic heart disease of native coronary artery without angina pectoris; I13.0 Hypertensive heart and chronic kidney disease with heart failure and stage 1 through stage 4 chronic kidney disease, or unspecified chronic kidney disease; E11.22 Type 2 diabetes mellitus with diabetic chronic kidney disease; I43 Cardiomyopathy in diseases classified elsewhere; N18.4 Chronic kidney disease, stage 4 (severe); I50.9 Heart failure, unspecified; E11.40 Type 2 diabetes mellitus with diabetic neuropathy, unspecified; E78.49 Other hyperlipidemia; J44.9 Chronic obstructive pulmonary disease, unspecified; Z86.718 Personal history of other venous thrombosis and embolism; Z79.01 Long term (current) use of anticoagulants; Z79.85 Long-term (current) use of injectable non-insulin antidiabetic drugs; Z79.84 Long term (current) use of oral hypoglycemic drugs; Z79.4 Long term (current) use of insulin; Z79.891 Long term (current) use of opiate analgesic; Z90.49 Acquired absence of other specified parts of digestive tract; Z87.891 Personal history of nicotine dependence
CPT/HCPCS: 36415; 36430; 80053; 82274; 82948; 83735; 84484; 85014; 85018; 85025; 85610; 85730; 86850; 86900; 86901; 86923; 93005; 96374; 96376; 99285; A9270; C9113; G0378; J1815; J7050; P9016

== ENCOUNTER 2023-04-25 16:55 | Outpatient (CLI) | payer MEDICARE, SELFPAY ==
[2023-04-25 17:48] LABS: Basophils Percent Auto 0.4 % (0.2-1.2); Eosinophils Absolute Auto 0.1 K/mm3 (0-0.3); Eosinophils Percent Auto 1.8 % (0-4.4); Hematocrit 31.5 % (42.0-52.0); Hemoglobin 8.9 g/dL (14.0-18.0); Immature Granulocyte Absolute 0.04 K/mm3 (0.00-0.031); Immature Granulocyte Percent A 0.6 % (0-0.5); Lymphocytes Absolute Auto 1.45 K/mm3 (0.9-3.2); Lymphocytes Percent Auto 20.4 % (18.3-44.2); Mean Corpuscular HGB Conc 28.3 g/dl (32-36); Mean Corpuscular Hemoglobin 25.8 pg (26-34); Mean Corpuscular Volume 91.3 fl (80-100); Mean Platelet Volume 10.9 fl (7.4-10.4); Monocytes Absolute Auto 0.8 K/mm3 (0.1-0.6); Monocytes Percent Auto 10.7 % (2.6-8.5); Neutrophils Absolute Auto 4.7 K/mm3 (1.3-6.7); Neutrophils Percent Auto 66.1 % (45.5-73.1); Platelet Count Result 198 k/mm3 (150-375); Red Blood Count 3.45 M/mm3 (4.6-6.20); Red Cell Distribution Width 20.6 % (11.5-14.5); White Blood Count 7.1 K/mm3 (4.5-10.0)
[2023-04-25 18:16] LABS: Ovalocytes 1+ (NORMAL); Platelet Estimate Adequate (Adequate); Tear Drop Cells 1+ (NORMAL)
[2023-04-25 18:17] LABS: Anisocytosis 1+ (NORMAL); Schistocytes Rare (NORMAL)
== END 2023-04-25 16:56 | disposition home or self-care (01) ==
PROVIDERS: PCP Internal Medicine Medical Oncology; Visit Provider Internal Medicine Medical Oncology
DX: C90.00 Multiple myeloma not having achieved remission (principal)
CPT/HCPCS: 36415; 85025

== ENCOUNTER 2023-05-01 14:22 | Outpatient (RCR) | payer MEDICARE, SELFPAY ==
[2023-05-01 15:01] LABS: Basophils Percent Auto 0.4 % (0.2-1.2); Eosinophils Absolute Auto 0.1 K/mm3 (0-0.3); Eosinophils Percent Auto 1.5 % (0-4.4); Hemoglobin 7.6 g/dL (14.0-18.0); Immature Granulocyte Absolute 0.04 K/mm3 (0.00-0.031); Immature Granulocyte Percent A 0.5 % (0-0.5); Lymphocytes Absolute Auto 1.05 K/mm3 (0.9-3.2); Lymphocytes Percent Auto 13.4 % (18.3-44.2); Mean Corpuscular HGB Conc 28.1 g/dl (32-36); Mean Corpuscular Hemoglobin 26.3 pg (26-34); Mean Corpuscular Volume 93.4 fl (80-100); Monocytes Absolute Auto 0.8 K/mm3 (0.1-0.6); Monocytes Percent Auto 9.7 % (2.6-8.5); Neutrophils Absolute Auto 5.8 K/mm3 (1.3-6.7); Neutrophils Percent Auto 74.5 % (45.5-73.1); Platelet Count Result 187 k/mm3 (150-375); Red Blood Count 2.89 M/mm3 (4.6-6.20); Red Cell Distribution Width 21.8 % (11.5-14.5); White Blood Count 7.8 K/mm3 (4.5-10.0)
[2023-05-01 15:43] LABS: Hypochromasia 2+ (NORMAL); Microcytosis 1+ (NORMAL); Ovalocytes 1+ (NORMAL); Platelet Estimate Adequate (Adequate)
[2023-05-01 15:44] LABS: Anisocytosis 1+ (NORMAL); Schistocytes Rare (NORMAL); Tear Drop Cells 1+ (NORMAL)
== END 2023-07-30 23:59 | disposition home or self-care (01) ==
LOC: ANHLAB 14:22
PROVIDERS: PCP Internal Medicine Medical Oncology; Visit Provider Internal Medicine Medical Oncology
DX: C90.00 Multiple myeloma not having achieved remission (principal)
CPT/HCPCS: 36415; 85025

== ENCOUNTER 2023-05-27 12:32 | Outpatient (CLI) | payer MEDICARE, SELFPAY ==
--- NOTE | ~2023-05-27 | US_ITS ---
EXAMINATION: US venous doppler [facility] DATE: 05/27/2023 13:16 INDICATION: Lower limb pain and swelling and edema. TECHNIQUE: Grayscale ultrasound images without and with compression and Doppler ultrasound images of the bilateral lower extremity veins were obtained. COMPARISON: Ultrasound 10/10/2022 FINDINGS: The visualized portions of right common femoral vein, profunda (deep) femoral vein, femoral vein, per agee veins, posterior tibial veins, and greater saphenous vein outflow are patent. There is thrombus in right popliteal vein. There is thrombus in varicose veins in medial lower leg. The visualized portions of left common femoral vein, profunda femoral vein, femoral vein, and greater saphenous vein outflow are patent. There is thrombus in right popliteal, posterior tibial, and peron eal veins and lesser saphenous vein. IMPRESSION: 1. Deep vein thrombosis involving right popliteal vein, left popliteal vein, and left posterior tibi al and peroneal veins. 2. Superficial vein thrombosis involving left saphenous vein and varicose veins in the medial right l ower leg. Reviewed, dictated and finalized at location A. IMPRESSION: 1. Deep vein thrombosis involving right popliteal vein, left popliteal vein, a nd left posterior tibial and peroneal veins. 2. Superficial vein thrombosis involving left saphenous vein and varicose veins in the medial right lower leg.
== END 2023-05-27 12:33 | disposition home or self-care (01) ==
LOC: ANHIMG 12:33
PROVIDERS: PCP Internal Medicine Medical Oncology; Visit Provider Internal Medicine Medical Oncology
DX: I82.433 Acute embolism and thrombosis of popliteal vein, bilateral (principal); I82.442 Acute embolism and thrombosis of left tibial vein; I82.452 Acute embolism and thrombosis of left peroneal vein; I82.812 Embolism and thrombosis of superficial veins of left lower extremity
CPT/HCPCS: 93970

== ENCOUNTER 2023-06-11 14:26 | Outpatient (CLI) | payer MEDICARE, SELFPAY ==
[2023-06-11 14:51] LABS: Hematocrit 28.4 % (42.0-52.0); Mean Corpuscular HGB Conc 28.2 g/dl (32-36); Mean Corpuscular Hemoglobin 22.1 pg (26-34); Mean Corpuscular Volume 78.5 fl (80-100); Mean Platelet Volume 10.9 fl (7.4-10.4); Platelet Count Result 187 k/mm3 (150-375); Red Blood Count 3.62 M/mm3 (4.6-6.20); Red Cell Distribution Width 20.2 % (11.5-14.5); White Blood Count 6.7 K/mm3 (4.5-10.0)
[2023-06-11 15:05] LABS: Albumin Level 3.7 g/dL (3.5-5.1); Anion Gap 9 mmol/L (4-12); Blood Urea Nitrogen 29 mg/dL (9-20); Calcium 9.1 mg/dL (8.4-10.2); Carbon Dioxide 23 mmol/L (22-30); Chloride 102 mmol/L (98-107); Estimated Glomerular Filt Rate 42; Glucose 101 mg/dL (65-110); Phosphorus 3.6 mg/dL (2.5-4.5); Potassium 4.1 mmol/L (3.4-5.0); Sodium 134 mmol/L (137-145)
[2023-06-11 15:16] LABS: Parathyroid Intact 137.6 pg/mL (7.5-53.5)
[2023-06-11 16:00] LABS: Creatinine Urine 72.9 mg/dL; Total Protein Urine Random 13 mg/dL; Ur Ttl Prot Creatinine Ratio 0.18 mg/mg (0-0.20)
[2023-06-11 16:06] LABS: Vitamin D 25 Hydroxy 41.1 ng/mL
== END 2023-06-11 14:27 | disposition home or self-care (01) ==
LOC: ANHLAB 14:30
PROVIDERS: PCP Internal Medicine Medical Oncology; Visit Provider Internal Medicine Nephrology
DX: E78.49 Other hyperlipidemia (principal); E11.40 Type 2 diabetes mellitus with diabetic neuropathy, unspecified; I12.9 Hypertensive chronic kidney disease with stage 1 through stage 4 chronic kidney disease, or unspecified chronic kidney disease; N18.32 Chronic kidney disease, stage 3b; E21.1 Secondary hyperparathyroidism, not elsewhere classified
CPT/HCPCS: 36415; 80069; 82306; 82570; 83970; 84156; 85027